=== PATIENT | male | born 1965 | race Caucasian/White ===

== ENCOUNTER 2017-12-06 12:28 | Inpatient (IN) | payer OTHER ==
--- NOTE | 2017-12-06 13:06 | PDOC ---
History of Present Illness - General Chief Complaint: Wound Infection Stated Complaint: INFECTION Time Seen by Provider: 12/06/17 12:42 History Source: Patient - History of Present Illness Initial Comments: 12/06/17 13:01 52 y.o. male with a PMH IDDM and R hip dysplasia presents with 5 day h/o of L 3rd phalange warmth, erythema and mild pain. Patient denies any associated fevers/chills. Patient notes a h/o cellullitis x2 in his L 2nd phalnage on prior occassion. Allergy: Amoxicillin, Bactrim Surgical: L eye surgery Social: denies cigarettes, denies alcohol, denies recreational drugs Past History - Past Medical History Allergies/Adverse Reactions: Allergies Allergy/AdvReac Type Severity Reaction Status Date / Time amoxicillin Allergy Rash Verified 12/06/17 12:38 sulfamethoxazole Allergy Rash Verified 12/06/17 12:38 [From Bactrim] trimethoprim [From Bactrim] Allergy Rash Verified 12/06/17 12:38 Home Medications: Ambulatory Orders Clindamycin [Cleocin -] 600 mg PO Q6H 12/06/17 Ergocalciferol (Vitamin D2) [Vitamin D2] 2,000 unit PO DAILY 12/06/17 Multivitamin [One Daily] 1 each PO DAILY 12/06/17 Mcintosh-3S/Dha/Epa/Fish Oil [Fish Oil 1,200 mg Softgel] 1 each PO DAILY 12/06/17 Omeprazole 40 mg PO DAILY 12/06/17 Pioglitazone HCl [Actos] 30 mg PO DAILY 12/06/17 Sitagliptin Phosphate [Januvia -] 100 mg PO DAILY@0700 12/06/17 metFORMIN HCL [Glucophage -] 500 mg PO BID 12/06/17 COPD: No Diabetes: Yes Other medical history: hip dysplagia - Suicide/Smoking/Psychosocial Hx Smoking History: Never smoked Review of Systems - Review of Systems Constitutional: No: Chills, Fever HEENTM: No: Recent change in vision Respiratory: No: Shortness of Breath Cardiac (ROS): No: Chest Pain ABD/GI: No: Constipated, Diarrhea, Nausea, Vomiting *Physical Exam - Vital Signs Last Vital Signs Temp Pulse Resp BP Pulse Ox 97.7 F 81 18 150/82 99 12/06/17 12:38 12/06/17 12:38 12/06/17 12:38 12/06/17 12:38 12/06/17 12:38 - Physical Exam General Appearance: Yes: Nourished, Obese HEENT: positive: EOMI, DANIEL Neck: positive: Trachea midline, Supple Respiratory/Chest: positive: Lungs Clear Cardiovascular: positive: S1, S2. negative: Edema, JVD, Murmur Vascular Pulses: Dorsalis-Pedis (R): 2+, Doralis-Pedis (L): 2+ Gastrointestinal/Abdominal: positive: Normal Bowel Sounds, Soft Extremity: positive: Other (L 3 phalange erythematous, edematous, moderate TTP) Integumentary: positive: Normal Color, Dry, Warm ED Treatment Course - LABORATORY CBC & Chemistry Diagram: 12/06/17 13:09 12/06/17 13:09 Medical Decision Making - Medical Decision Making 12/06/17 13:33 52 y.o. male presents w/ LLE redness, warmth swelling localized to 3rd phalange. Patient currently on Cephalexin PO - Day 4. Case d/w Dr. Doran ( Infectious Disease) Will treat for presumed cellulitis -- given patient's penicillin allergy, ID will treat @ bedside. 12/06/17 14:44 X-ray negative for osteomyelitis -- however given low sensitivity, will admit for further evaluation. [facility] hospitalist page for admission. 12/06/17 16:12 Patient admitted for observation. Will hold antibiotics pending bedside evaluation by Infectious Disease. Patient and patient's counseled on POC. Will continue to monitor while in ED. *DC/Admit/Observation/Transfer Diagnosis at time of Disposition: Cellulitis - Discharge Dispostion Condition at time of disposition: Fair Admit: Yes - Referrals - Patient Instructions - Post Discharge Activity
--- NOTE | 2017-12-06 13:23 | PDOC ---
Attending Attestation - Resident Resident Name: XiJoann - ED Attending Attestation I have performed the following: I have examined & evaluated the patient, The case was reviewed & discussed with the resident, I agree w/resident's findings & plan, Exceptions are as noted - HPI HPI: 12/06/17 13:21 52-year-old male with past medical history of diabetes, right hip dysplasia presents for admission for third left toe infection. The patient started developing erythema redness and pain proximal 5 days goes progressively worsened. Patient has been initiated on clindamycin and had seen his school treasurer who referred the patient to ED for admission to the hospital. Denies fevers or chills. - Physicial Exam PE: 12/06/17 13:22 GENERAL: Awake, alert, and fully oriented, in no acute distress. HEAD: No signs of trauma EYES: PERRLA, EOMI, sclera anicteric, conjunctiva clear ENT: Auricles normal inspection, hearing grossly normal, nares patent NECK: Normal ROM, supple ABDOMEN: Soft. EXTREMITIES: +R sided hip dysplasia. 3rd Left toe with erythema and no active drainage. mild TTP to palpation. 2+ DP pulse LLE. NEUROLOGICAL: Cranial nerves II through XII grossly intact. Normal speech SKIN: Warm, Dry, normal turgor, no rashes or lesions noted. - Medical Decision Making 12/06/17 13:22 Vital Signs Temp Pulse Resp BP Pulse Ox 97.7 F 81 18 150/82 99 12/06/17 12:38 12/06/17 12:38 12/06/17 12:38 12/06/17 12:38 12/06/17 12:38 The patient will certainly has infection of his third left toe. We'll also need to rule out osteomyelitis. We'll consult infectious disease physician Dr. Doran at the request of his school treasurer and admit the patient to the hospital. Heart Score/ECG Review #1 ECG reviewed & interpreted by me at: 13:20 12/06/17 13:24 NSR 83, low voltage QRS, no rosalinda/std, QTC 420 msec
[2017-12-06 13:27] LABS: BASO % 0.5 % (0-2.0); EOS % 2.5 % (0-4.5); HEMATOCRIT 43.9 % (35.4-49); HEMOGLOBIN 14.9 GM/dL (11.7-16.9); LYMPH % 12.8 % (8-40); MCH 30.3 pg (25.7-33.7); MCHC 33.9 g/dl (32.0-35.9); MEAN CELL VOLUME 89.2 fl (80-96); MEAN PLT VOLUME 8.5 fl (7.5-11.1); MONO % 7.7 % (3.8-10.2); NEUT % 76.5 % (42.8-82.8); PLATELET COUNT 161 K/MM3 (134-434); RBC 4.92 M/mm3 (4.00-5.60); RDW 12.4 % (11.9-15.9); WHITE BLOOD COUNT 5.6 K/mm3 (4.0-10.0)
[2017-12-06 13:52] LABS: ALBUMIN 3.8 g/dl (3.4-5.0); ALK PHOS 156 U/L (45-117); ANION GAP 11 (8-16); BILIRUBIN,TOTAL 0.7 mg/dL (0.2-1.0); BLOOD UREA NITROGEN 17 mg/dL (7-18); CALCIUM 9.6 mg/dL (8.5-10.1); CHLORIDE 99 mmol/L (98-107); CO2 26 mmol/L (21-32); CREATININE 0.9 mg/dL (0.7-1.3); POTASSIUM 4.6 mmol/L (3.5-5.1); SGOT/AST 16 U/L (15-37); SGPT/ALT 25 U/L (12-78); SODIUM 136 mmol/L (136-145); TOT PROT 7.7 g/dl (6.4-8.2)
[2017-12-06 13:57] LABS: GLUCOSE,RANDOM 319 mg/dL (74-106)
--- NOTE | 2017-12-06 16:08 | DS ---
Physical Exam: SUBJECTIVE: Patient seen and examined OBJECTIVE: Vital Signs Period Temp Pulse Resp BP Sys/Cruz Pulse Ox Last 24 Hr 97.7 F 81 18 150/82 99 PHYSICAL EXAM GENERAL: The patient is awake, alert, and fully oriented, in no acute distress. HEAD: Normal with no signs of trauma. EYES: PERRL, extraocular movements intact, sclera anicteric, conjunctiva clear. ENT: Ears normal, nares patent, oropharynx clear without exudates, moist mucous membranes. NECK: Trachea midline, full range of motion, supple. LUNGS: Breath sounds equal, clear to auscultation bilaterally, no wheezes, no crackles, no accessory muscle use. HEART: Regular rate and rhythm, S1, S2 without murmur, rub or gallop. ABDOMEN: Soft, nontender, nondistended, normoactive bowel sounds, no guarding, no rebound, no hepatosplenomegaly, no masses. EXTREMITIES: 2+ pulses, warm, well-perfused, no edema. NEUROLOGICAL: Cranial nerves II through XII grossly intact. Normal speech, gait not observed. PSYCH: Normal mood, normal affect. SKIN: Warm, dry, normal turgor, no rashes or lesions noted. LABS Laboratory Results - last 24 hr 12/06/17 12/06/17 12/06/17 13:09 13:09 13:13 WBC 5.6 RBC 4.92 Hgb 14.9 Hct 43.9 MCV 89.2 MCH 30.3 MCHC 33.9 RDW 12.4 Plt Count 161 MPV 8.5 Neutrophils % 76.5 Lymphocytes % 12.8 Monocytes % 7.7 Eosinophils % 2.5 Basophils % 0.5 ESR 23 H Sodium 136 Potassium 4.6 Chloride 99 Carbon Dioxide 26 Anion Gap 11 BUN 17 Creatinine 0.9 Creat Clearance w eGFR > 60 Random Glucose 319 H* Calcium 9.6 Total Bilirubin 0.7 AST 16 ALT 25 Alkaline Phosphatase 156 H C-Reactive Protein Total Protein 7.7 Albumin 3.8 12/06/17 13:13 WBC RBC Hgb Hct MCV MCH MCHC RDW Plt Count MPV Neutrophils % Lymphocytes % Monocytes % Eosinophils % Basophils % ESR Sodium Potassium Chloride Carbon Dioxide Anion Gap BUN Creatinine Creat Clearance w eGFR Random Glucose Calcium Total Bilirubin AST ALT Alkaline Phosphatase C-Reactive Protein < 0.3 Total Protein Albumin HOSPITAL COURSE: Date of Admission:12/06/17 Date of Discharge: 12/06/17 Discharge Summary Reason For Visit: INFECTION - Instructions Referrals: ON STAFF,NOT [Primary Care Provider] - - Home Medications Comprehensive Discharge Medication List: Ambulatory Orders Clindamycin [Cleocin -] 600 mg PO Q6H 12/06/17 Ergocalciferol (Vitamin D2) [Vitamin D2] 2,000 unit PO DAILY 12/06/17 Multivitamin [One Daily] 1 each PO DAILY 12/06/17 Lutz-3S/Dha/Epa/Fish Oil [Fish Oil 1,200 mg Softgel] 1 each PO DAILY 12/06/17 Omeprazole 40 mg PO DAILY 12/06/17 Pioglitazone HCl [Actos] 30 mg PO DAILY 12/06/17 Sitagliptin Phosphate [Januvia -] 100 mg PO DAILY@0700 12/06/17 metFORMIN HCL [Glucophage -] 500 mg PO BID 12/06/17
[2017-12-06] MEDS ORDERED: ACETAMINOPHEN 325 MG TABLET (FP) PO PRN (16:10)
--- NOTE | 2017-12-06 16:21 | HP ---
CHIEF COMPLAINT: "my viticulture teacher sent me to the ER for a toe infection" HISTORY OF PRESENT ILLNESS: This is a 52 yo M with PMH of poorly controlled NIDDM2, Osteomyelitis 5 years ago and R hip dysplasia, who presents with L 3rd toe infection, sent by podiatry for IV abx. Patient noticed his toe became edematous, red and was draining yellow fluid 5 days ago. he went to acute care, where he was given clindamycin, which he has been taking daily. Yesterday he saw his viticulture teacher, who examined him and determined that he needs admission. Reports that left ankle is a bit more swollen than usual. he denies pain, fever, chills or malaise. He states that he has has Dm for 15 years, has never been on insulin despite A1C averaging 13. He states his PCP manages his DM and never recommended insulin. he state he is not compliant with the diabetic diet. he has never had amputation before. Denies CP, sob, abd pain, n/v/d, h/a. ER course was notable for: (1) labs (2)cxr, foot xr Recent Travel: denies PAST MEDICAL HISTORY: PAST SURGICAL HISTORY:L eye surgery Social History: Smoking: denies Alcohol: denies Drugs: denies Family History: unknown Allergies amoxicillin Allergy (Verified 12/06/17 12:38) Rash sulfamethoxazole [From Bactrim] Allergy (Verified 12/06/17 12:38) Rash trimethoprim [From Bactrim] Allergy (Verified 12/06/17 12:38) Rash HOME MEDICATIONS: Home Medications Medication Instructions Recorded Clindamycin [Cleocin -] 600 mg PO Q6H 12/06/17 Ergocalciferol (Vitamin D2) 2,000 unit PO DAILY 12/06/17 [Vitamin D2] Multivitamin [One Daily] 1 each PO DAILY 12/06/17 [place]-3S/Dha/Epa/Fish Oil [Fish 1 each PO DAILY 12/06/17 Oil 1,200 mg Softgel] Omeprazole 40 mg PO DAILY 12/06/17 Pioglitazone HCl [Actos] 30 mg PO DAILY 12/06/17 Sitagliptin Phosphate [Januvia -] 100 mg PO DAILY@0700 12/06/17 metFORMIN HCL [Glucophage -] 500 mg PO BID 12/06/17 REVIEW OF SYSTEMS CONSTITUTIONAL: Absent: fever, chills, diaphoresis, generalized weakness, malaise, loss of appetite, weight change HEENT: Absent: rhinorrhea, nasal congestion, throat pain CARDIOVASCULAR: Absent: chest pain, syncope, palpitations, irregular heart rate, lightheadedness RESPIRATORY: Absent: cough, shortness of breath, dyspnea with exertion, orthopnea, wheezing, stridor, hemoptysis GASTROINTESTINAL: Absent: abdominal pain, abdominal distension, nausea, vomiting, diarrhea, constipation GENITOURINARY: Absent: dysuria MUSCULOSKELETAL: Absent: myalgia, arthralgia SKIN: Absent: rash, itching, pallor HEMATOLOGIC/IMMUNOLOGIC: Absent: frequent infections ENDOCRINE: Absent: unexplained weight gain, unexplained weight loss, heat intolerance, cold intolerance NEUROLOGIC: Absent: headache, focal weakness or paresthesias PSYCHIATRIC: Absent: anxiety, depression PHYSICAL EXAMINATION Vital Signs - 24 hr 12/06/17 12:38 Temperature 97.7 F Pulse Rate 81 Respiratory 18 Rate Blood Pressure 150/82 O2 Sat by Pulse 99 Oximetry (%) GENERAL: Awake, alert, and fully oriented, in no acute distress. HEAD: Normal with no signs of trauma. EYES: Pupils equal, round and reactive to light, extraocular movements intact, sclera anicteric, conjunctiva clear. No lid lag. EARS, NOSE, THROAT: Moist mucous membranes. NECK: supple LUNGS: Breath sounds equal, clear to auscultation bilaterally. No wheezes, and no crackles. No accessory muscle use. HEART: Regular rate and rhythm, normal S1 and S2 ABDOMEN: Soft, nontender, not distended, normoactive bowel sounds, no guarding, no rebound, no masses. MUSCULOSKELETAL: No CVA tenderness. UPPER EXTREMITIES: 2+ pulses, warm, well-perfused. No cyanosis. No clubbing. No peripheral edema. LOWER EXTREMITIES: 1+ pulses, warm, well-perfused. No calf tenderness. R leg thinner and shorter than L. Some echymotic lesions and calluses on 5th toe and 1st toe. No peripheral edema. R ankle trace edema, no calf tenderness 1+ pulse, 3rd toe edematous, mildly tender, erythematous, no drainage. b/l reduce sensation in toes. NEUROLOGICAL: Cranial nerves II-XII grossly intact. Normal speech. PSYCHIATRIC: Cooperative. Good eye contact. Appropriate mood and affect. SKIN: Warm, dry Laboratory Results - last 24 hr 03/12/06/17 12/06/17 13:09 13:09 13:13 WBC 5.6 RBC 4.92 Hgb 14.9 Hct 43.9 MCV 89.2 MCH 30.3 MCHC 33.9 RDW 12.4 Plt Count 161 MPV 8.5 Neutrophils % 76.5 Lymphocytes % 12.8 Monocytes % 7.7 Eosinophils % 2.5 Basophils % 0.5 ESR 23 H Sodium 136 Potassium 4.6 Chloride 99 Carbon Dioxide 26 Anion Gap 11 BUN 17 Creatinine 0.9 Creat Clearance w eGFR > 60 Random Glucose 319 H* Calcium 9.6 Total Bilirubin 0.7 AST 16 ALT 25 Alkaline Phosphatase 156 H C-Reactive Protein Total Protein 7.7 Albumin 3.8 12/06/17 13:13 WBC RBC Hgb Hct MCV MCH MCHC RDW Plt Count MPV Neutrophils % Lymphocytes % Monocytes % Eosinophils % Basophils % ESR Sodium Potassium Chloride Carbon Dioxide Anion Gap BUN Creatinine Creat Clearance w eGFR Random Glucose Calcium Total Bilirubin AST ALT Alkaline Phosphatase C-Reactive Protein < 0.3 Total Protein Albumin ASSESSMENT/PLAN: This is a 52 yo M with PMH of poorly controlled NIDDM2, Osteomyelitis 5 years ago and R hip dysplasia, who presents with L 3rd toe infection, sent by podiatry for IV abx. L 3rd toe infection -no SIRS -foot x ray not sensitive to r/o osteo -f/u MRI foot -silke renteria per PAUL Doran NIDDM2 -poorly controlled, reports A1C 13 -f/u A1c, lipid panel -BGM ACHS; start levemir 10 bid, ISS -hold po agents -outpatient endocrinology f/u FEN no ivf lytes stable diabetic diet scds Obs m/s; can upgrade to inpatient if osteo + on MRI Problem List - Problem (1) NIDDY (non-insulin dependent diabetes mellitus in young) Code(s): E13.9 - OTHER SPECIFIED DIABETES MELLITUS WITHOUT COMPLICATIONS (2) Diabetic foot ulcer Code(s): E11.621 - TYPE 2 DIABETES MELLITUS WITH FOOT ULCER; L97.509 - NON- PRESSURE CHRONIC ULCER OTH PRT UNSP FOOT W UNSP SEVERITY Visit type - Emergency Visit Emergency Visit: Yes ED Registration Date: 12/06/17 Care time: The patient presented to the Emergency Department on the above date and was hospitalized for further evaluation of their emergent condition. - New Patient This patient is new to me today: Yes Date on this admission: 12/06/17 - Critical Care Critical Care patient: No Hospitalist Screening - Colonoscopy Questionnaire Colonoscopy Questionnaire: Colonoscopy Questionnaire - Patient: 50 - 75 years old and never had a screening colonoscopy: Yes History of colon or rectal polyps, or CA: No History of IBD, Crohn's disease or UC: No History of abdominal radiation therapy as a child: No - Relative: 1 with colon or rectal CA, or polyps at age 60 or younger: No Colon or rectal CA diagnosed at age 45 or younger: No Multiple relatives with colon or rectal CA: No - Outcome: Screening Result: Positive Screen
[2017-12-06] MEDS ORDERED: metFORMIN HCL 500 MG TABLET (FP) ONE (16:29)
[2017-12-06] MEDS ORDERED: metFORMIN HCL 500 MG TABLET (FP) PO SCH (16:30)
--- NOTE | 2017-12-06 17:32 | EKG ---
Test Reason : Blood Pressure : / mmHG Vent. Rate : 083 BPM Atrial Rate : 083 BPM P-R Int : 186 ms QRS Dur : 090 ms QT Int : 358 ms P-R-T Axes : 066 -16 031 degrees QTc Int : 420 ms NORMAL SINUS RHYTHM LOW VOLTAGE QRS CANNOT RULE OUT ANTERIOR INFARCT , AGE UNDETERMINED ABNORMAL ECG NO PREVIOUS ECGS AVAILABLE Confirmed by MADDI CHANG MD ([id number]) on 12/06/2017 5:32:18 PM Referred By: Confirmed By:MADDI CHANG MD
--- NOTE | 2017-12-06 18:22 | PN ---
Teaching Attending Note Name of Resident: Mandy Tavarez ATTENDING PHYSICIAN STATEMENT I saw and evaluated the patient. I reviewed the resident's note and discussed the case with the resident. I agree with the resident's findings and plan as documented. SUBJECTIVE: 52M diabetic uncontrolled sent in by his stock buyer for admission due to draining toe ulcer OBJECTIVE: toe ulcer with serosanguinous drainage on 3rd left toe ASSESSMENT AND PLAN: 52M with infected toe ulcer likely from longstanding DM2 which he seems uninterested in controlling broad spectrum abx MRI to eval of OM DM2 start on long acting insulin and ISS
[2017-12-06 18:56] VITALS: BMI 41.6
[2017-12-06] MEDS ORDERED: VANCOMYCIN 1 GRAM (PRE-DOCKED) 1,000 MG/250 ML BAG IVPB ONE (23:23)
[2017-12-06] MEDS ORDERED: INSULIN DETEMIR 100 UNITS/ML MDV SQ ONE (23:24)
[2017-12-06] MEDS ORDERED: INSULIN (NOVOLOG) ASPART 100 UNITS/ML 10ML VIAL ONE (23:24)
[2017-12-06] MEDS: VANCOMYCIN 1,000 MG in DEXTROSE 5%-WATER - 250 ML IVPB SCH (23:32)
[2017-12-06] MEDS: INSULIN SLIDING SCALE (NOVOLOG) 1 VIAL SQ SCH (23:32)
[2017-12-06] MEDS: INSULIN DETEMIR 100 UNITS/ML MDV SQ SCH (23:32)
[2017-12-07] MEDS: INSULIN DETEMIR 100 UNITS/ML MDV SQ SCH ×2 (06:00→22:35)
[2017-12-07] MEDS: INSULIN SLIDING SCALE (NOVOLOG) 1 VIAL SQ SCH ×4 (06:01→22:35)
[2017-12-07] MEDS ORDERED: sitaGLIPtin PHOSPHATE 100 MG TABLET (FP) PO SCH (07:00)
[2017-12-07] MEDS ORDERED: PIOGLITAZONE HCL 30 MG TABLET (FP) PO SCH (07:00)
[2017-12-07 08:00] LABS: BASO % 0.7 % (0-2.0); EOS % 2.9 % (0-4.5); HEMATOCRIT 38.8 % (35.4-49); HEMOGLOBIN 13.4 GM/dL (11.7-16.9); LYMPH % 17.6 % (8-40); MCH 30.4 pg (25.7-33.7); MCHC 34.5 g/dl (32.0-35.9); MEAN CELL VOLUME 88.1 fl (80-96); MONO % 9.7 % (3.8-10.2); NEUT % 69.1 % (42.8-82.8); PLATELET COUNT 153 K/MM3 (134-434); RDW 12.5 % (11.9-15.9); WHITE BLOOD COUNT 4.6 K/mm3 (4.0-10.0)
[2017-12-07 08:21] LABS: CHOLESTEROL 172 mg/dL (50-200); LDL CHOLESTEROL (ONLY SJRH) 115 mg/dL (5-100); TRIGLYCERIDES 139 mg/dL (35-160)
[2017-12-07 08:23] LABS: HDL CHOLESTEROL 35 mg/dL (40-60)
[2017-12-07 08:37] LABS: ALBUMIN 3.3 g/dl (3.4-5.0); ANION GAP 11 (8-16); BLOOD UREA NITROGEN 21 mg/dL (7-18); CALCIUM 8.9 mg/dL (8.5-10.1); CHLORIDE 99 mmol/L (98-107); CO2 27 mmol/L (21-32); GLUCOSE,RANDOM 187 mg/dL (74-106); MAGNESIUM 1.7 mg/dL (1.8-2.4); POTASSIUM 3.9 mmol/L (3.5-5.1); SODIUM 137 mmol/L (136-145)
[2017-12-07 08:41] LABS: ALK PHOS 105 U/L (45-117); BILIRUBIN,TOTAL 0.9 mg/dL (0.2-1.0); CREATININE 0.8 mg/dL (0.7-1.3); PHOSPHOROUS 3.5 mg/dL (2.5-4.9); SGOT/AST 13 U/L (15-37); SGPT/ALT 20 U/L (12-78); TOT PROT 6.7 g/dl (6.4-8.2)
[2017-12-07] MEDS ORDERED: PT OWN MED DRAWER 7, Y5N ONE ×2 (10:31→12:03)
[2017-12-07] MEDS: VANCOMYCIN 1,000 MG in DEXTROSE 5%-WATER - 250 ML IVPB SCH (10:42)
[2017-12-07] MEDS: PANTOPRAZOLE 20 MG TABLET (FP) PO SCH (10:42)
[2017-12-07] MEDS: MULTIVITAMINS (DAILY MVI) TABLET (FP) PO SCH (10:42)
--- NOTE | 2017-12-07 10:43 | CONSULT ---
Consult - text type - Consultation Consultation Note: Patient seen in bed with an infected 3rd toe left. Presented to my office on Thursday. Did not come to hospital till yesterday against medical advice. Was being tx outpatient with clindamycin for 3 days when presented to me. Tmax 98.0 , vss +cellulitis 3rd toe left, -drainage, -mal odor, -tender, wbc=4.6, demarcating distal 1/2 left, cellulitis diabetes mellitus r/o pvd Awaiting vascular and ID consult. Will follow. MRI today.
[2017-12-07] MEDS ORDERED: INSULIN (NOVOLOG) ASPART 100 UNITS/ML 10ML VIAL ONE ×2 (11:48→12:03)
--- NOTE | 2017-12-07 12:15 | PN ---
Teaching Attending Note Name of Resident: Nam Stewart ATTENDING PHYSICIAN STATEMENT I saw and evaluated the patient. I reviewed the resident's note and discussed the case with the resident. I agree with the resident's findings and plan as documented. SUBJECTIVE: Patient has no complaints. OBJECTIVE: Vital Signs Period Temp Pulse Resp BP Sys/Cruz Pulse Ox Last 24 Hr 97.7 F-98.2 F 81-86 18-19 115-150/64-82 98-100 HEART: S1S2, RRR LUNGS: Clear ABDOMEN: Obese, soft, non-tender, non-distended, normal BS EXTREMITIES: Left 3rd toe erythematous and swollen with no drainage Laboratory Results - last 24 hr 12/06/17 12/06/17 12/06/17 13:09 13:09 13:13 WBC 5.6 RBC 4.92 Hgb 14.9 Hct 43.9 MCV 89.2 MCH 30.3 MCHC 33.9 RDW 12.4 Plt Count 161 MPV 8.5 Neutrophils % 76.5 Lymphocytes % 12.8 Monocytes % 7.7 Eosinophils % 2.5 Basophils % 0.5 ESR 23 H Sodium 136 Potassium 4.6 Chloride 99 Carbon Dioxide 26 Anion Gap 11 BUN 17 Creatinine 0.9 Creat Clearance w eGFR > 60 POC Glucometer Random Glucose 319 H* Hemoglobin A1c % Calcium 9.6 Phosphorus Magnesium Total Bilirubin 0.7 AST 16 ALT 25 Alkaline Phosphatase 156 H C-Reactive Protein Total Protein 7.7 Albumin 3.8 Triglycerides Cholesterol Total LDL Cholesterol HDL Cholesterol 12/06/17 12/06/17 12/07/17 13:13 23:20 05:16 WBC RBC Hgb Hct MCV MCH MCHC RDW Plt Count MPV Neutrophils % Lymphocytes % Monocytes % Eosinophils % Basophils % ESR Sodium Potassium Chloride Carbon Dioxide Anion Gap BUN Creatinine Creat Clearance w eGFR POC Glucometer [phone] Random Glucose Hemoglobin A1c % Calcium Phosphorus Magnesium Total Bilirubin AST ALT Alkaline Phosphatase C-Reactive Protein < 0.3 Total Protein Albumin Triglycerides Cholesterol Total LDL Cholesterol HDL Cholesterol 12/07/17 12/07/17 12/07/17 06:13 06:13 06:13 WBC 4.6 RBC 4.40 Hgb 13.4 D Hct 38.8 MCV 88.1 MCH 30.4 MCHC 34.5 RDW 12.5 Plt Count 153 MPV 9.0 Neutrophils % 69.1 Lymphocytes % 17.6 D Monocytes % 9.7 Eosinophils % 2.9 Basophils % 0.7 ESR Sodium 137 Potassium 3.9 Chloride 99 Carbon Dioxide 27 Anion Gap 11 BUN 21 H D Creatinine 0.8 Creat Clearance w eGFR > 60 POC Glucometer Random Glucose 187 H D Hemoglobin A1c % 11.5 H Calcium 8.9 Phosphorus 3.5 Magnesium 1.7 L Total Bilirubin 0.9 D AST 13 L ALT 20 Alkaline Phosphatase 105 D C-Reactive Protein Total Protein 6.7 Albumin 3.3 L Triglycerides Cholesterol Total LDL Cholesterol HDL Cholesterol 12/07/17 12/07/17 12/07/17 06:13 06:13 11:57 WBC RBC Hgb Hct MCV MCH MCHC RDW Plt Count MPV Neutrophils % Lymphocytes % Monocytes % Eosinophils % Basophils % ESR Sodium Potassium Chloride Carbon Dioxide Anion Gap BUN Creatinine Creat Clearance w eGFR POC Glucometer 283 Random Glucose Hemoglobin A1c % Calcium Phosphorus Magnesium Total Bilirubin AST ALT Alkaline Phosphatase C-Reactive Protein Cancelled Total Protein Albumin Triglycerides 139 Cholesterol 172 Total LDL Cholesterol 115 H HDL Cholesterol 35 L Current Medications Generic Name Dose Route Start Last Admin Trade Name Freq PRN Reason Stop Dose Admin Acetaminophen 650 mg 12/06/17 16:10 Tylenol - PO Q4H PRN PAIN LEVEL 1-5 Vancomycin HCl 1,000 mg/ 250 mls @ 166.667 mls/hr 12/06/17 22:00 12/07/17 10: 42 Dextrose IVPB 166.667 mls/hr BID CHRIS Administration Protocol Insulin Aspart 1 vial 12/06/17 22:00 12/07/17 12:00 Novolog Vial Sliding Scale - SQ 6 unit ACHS CHRIS Administration Protocol Insulin Detemir 10 units 12/06/17 22:00 12/07/17 06:00 Levemir Vial SQ 10 units BID@0700,2200 CHRIS Administration Multivitamins/Minerals/Vitamin C 1 tab 12/07/17 10:00 12/07/17 10:42 Tab-A-Vit - PO 1 tab DAILY CHRIS Administration Pantoprazole Sodium 20 mg 12/07/17 10:00 12/07/17 10:42 Protonix - PO 20 mg DAILY CHRIS Administration ASSESSMENT AND PLAN: This is a 52 year old man with a history of type 2 DM, osteomyelitis, right hip dysplasia who presented to the ED with a red, swollen left 3rd toe. 1. Cellulitis, left 3rd toe - Failed treatment with Clindamycin PO as outpatient - On Zosyn, Vancomycin - ID consult - Podiatry consult appreciated - MRI pending 2. Type 2 DM, uncontrolled - HgbA1c 11.5 - Metformin, Januvia, Actos held - Continue Levemir, Novolog sliding scale
--- NOTE | 2017-12-07 12:30 | CON.ID ---
Consult Consult Specialty:: infectious diseases Reason for Consultation:: left 3rd toe infection - History of Present Illness Chief Complaint: pain tenderness of the left 3rd toe History of Present Illness: 52 yo M with PMH of poorly controlled NIDDM2, Osteomyelitis 5 years ago and R hip dysplasia, admitted because of pain and swelling and erythema of the left 3rd toe and was send here to get iv abx. Patient noticed his toe became edematous, red and was draining yellow fluid 5 days ago. he went to acute care, where he was given clindamycin, which he has been taking daily. Yesterday he saw his account resolution expert, who examined him and determined that he needs admission. . he denies pain, fever, chills or malaise. 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 patient otherwise feels good and has no other issues - History Source History Provided By: Patient Limitations to Obtaining History: No Limitations - Smoking History Smoking history: Never smoked Home Medications - Allergies Allergies/Adverse Reactions: Allergies Allergy/AdvReac Type Severity Reaction Status Date / Time amoxicillin Allergy Rash Verified 12/06/17 12:38 sulfamethoxazole Allergy Rash Verified 12/06/17 12:38 [From Bactrim] trimethoprim [From Bactrim] Allergy Rash Verified 12/06/17 12:38 - Home Medications Home Medications: Ambulatory Orders Clindamycin [Cleocin -] 600 mg PO Q6H 12/06/17 Ergocalciferol (Vitamin D2) [Vitamin D2] 2,000 unit PO DAILY 12/06/17 Multivitamin [One Daily] 1 each PO DAILY 12/06/17 Crockett-3S/Dha/Epa/Fish Oil [Fish Oil 1,200 mg Softgel] 1 each PO DAILY 12/06/17 Omeprazole 40 mg PO DAILY 12/06/17 Pioglitazone HCl [Actos] 30 mg PO DAILY 12/06/17 Sitagliptin Phosphate [Januvia -] 100 mg PO DAILY@0700 12/06/17 metFORMIN HCL [Glucophage -] 500 mg PO BID 12/06/17 Review of Systems - Review of Systems Constitutional: reports: No Symptoms Eyes: reports: No Symptoms HENT: reports: No Symptoms Neck: reports: No Symptoms Cardiovascular: reports: No Symptoms Respiratory: reports: No Symptoms Gastrointestinal: reports: No Symptoms Genitourinary: reports: No Symptoms Musculoskeletal: reports: Joint Swelling, Muscle Pain Integumentary: reports: Wound, Other (draiange) Neurological: reports: No Symptoms Endocrine: reports: No Symptoms Hematology/Lymphatic: reports: No Symptoms Psychiatric: reports: No Symptoms Physical Exam Vital Signs: Vital Signs Temperature 98.0 F 12/07/17 06:00 Pulse Rate 85 12/07/17 06:00 Respiratory Rate 18 12/07/17 06:00 Blood Pressure 115/69 12/07/17 06:00 O2 Sat by Pulse Oximetry (%) 100 12/07/17 03:15 Constitutional: Yes: Well Nourished, No Distress, Calm, Obese Eyes: Yes: Conjunctiva Clear, EOM Intact HENT: Yes: Atraumatic Neck: Yes: Supple, Trachea Midline Cardiovascular: Yes: Regular Rate and Rhythm Respiratory: Yes: Regular, CTA Bilaterally Gastrointestinal: Yes: Normal Bowel Sounds, Soft Musculoskeletal: Yes: WNL Extremities: Yes: Other Integumentary: Yes: Erythema (left 3rd toe), Other (callous on the plantar aspect of the left foot) Wound/Incision: Yes: Draining, Reddened Neurological: Yes: Alert, Oriented Psychiatric: Yes: Alert, Oriented Labs: CBC, BMP 12/07/17 06:13 12/07/17 06:13 Imaging - Results Chest X-ray: Report Reviewed, Image Reviewed X-ray: Report Reviewed, Image Reviewed Assessment/Plan after looking at the patient condition and the leg and history i have no doubt that the patient probably has osteo specially looking at the callous also he does have pretty bad onchomycosis obesity onchomycosis r/o osteo left 3rd toe cellulitis patient has been started on vanco patient is allergic to pencillins plan will stop vanco will switch patient to ertapena wound cx if any drainage noted please get mri of the leg rest as per primary team nystatin cream to the toes of both feet
[2017-12-07] MEDS ORDERED: MAGNESIUM OXIDE 400 MG TABLET (FP) PO ONE (15:46)
--- NOTE | 2017-12-07 15:46 | PN ---
Physical Exam: SUBJECTIVE: Patient seen and examined No acute events overnight. patient continues to drain from the foot. States he took clindamycin x 4days prior to arriving to the hospital. OBJECTIVE: Vital Signs Period Temp Pulse Resp BP Sys/Cruz Pulse Ox Last 24 Hr 97.7 F-98.2 F 80-86 18-20 115-138/64-78 98-100 GENERAL: Awake, alert, and fully oriented, in no acute distress. HEAD: Normal with no signs of trauma. EYES: Pupils equal, round and reactive to light, extraocular movements intact, sclera anicteric, conjunctiva clear. No lid lag. EARS, NOSE, THROAT: Moist mucous membranes. NECK: supple LUNGS: Breath sounds equal, clear to auscultation bilaterally. No wheezes, and no crackles. No accessory muscle use. HEART: Regular rate and rhythm, normal S1 and S2 ABDOMEN: Soft, nontender, not distended, normoactive bowel sounds, no guarding, no rebound, no masses. MUSCULOSKELETAL: No CVA tenderness. UPPER EXTREMITIES: 2+ pulses, warm, well-perfused. No cyanosis. No clubbing. No peripheral edema. LOWER EXTREMITIES: 1+ pulses, warm, well-perfused. No calf tenderness. R leg thinner and shorter than L. Some echymotic lesions and calluses on 5th toe and 1st toe. No peripheral edema. R ankle trace edema, no calf tenderness 1+ pulse, 3rd toe edematous, mildly tender, erythematous, no drainage. b/l reduce sensation in toes. NEUROLOGICAL: Cranial nerves II-XII grossly intact. Normal speech. PSYCHIATRIC: Cooperative. Good eye contact. Appropriate mood and affect. SKIN: Warm, dry Laboratory Results - last 24 hr 12/06/17 12/07/17 12/07/17 23:20 05:16 06:13 WBC 4.6 RBC 4.40 Hgb 13.4 D Hct 38.8 MCV 88.1 MCH 30.4 MCHC 34.5 RDW 12.5 Plt Count 153 MPV 9.0 Neutrophils % 69.1 Lymphocytes % 17.6 D Monocytes % 9.7 Eosinophils % 2.9 Basophils % 0.7 Sodium Potassium Chloride Carbon Dioxide Anion Gap BUN Creatinine Creat Clearance w eGFR POC Glucometer [phone] Random Glucose Hemoglobin A1c % Calcium Phosphorus Magnesium Total Bilirubin AST ALT Alkaline Phosphatase C-Reactive Protein Total Protein Albumin Triglycerides Cholesterol Total LDL Cholesterol HDL Cholesterol 12/07/17 12/07/17 12/07/17 06:13 06:13 06:13 WBC RBC Hgb Hct MCV MCH MCHC RDW Plt Count MPV Neutrophils % Lymphocytes % Monocytes % Eosinophils % Basophils % Sodium 137 Potassium 3.9 Chloride 99 Carbon Dioxide 27 Anion Gap 11 BUN 21 H D Creatinine 0.8 Creat Clearance w eGFR > 60 POC Glucometer Random Glucose 187 H D Hemoglobin A1c % 11.5 H Calcium 8.9 Phosphorus 3.5 Magnesium 1.7 L Total Bilirubin 0.9 D AST 13 L ALT 20 Alkaline Phosphatase 105 D C-Reactive Protein < 0.2 Total Protein 6.7 Albumin 3.3 L Triglycerides 139 Cholesterol 172 Total LDL Cholesterol 115 H HDL Cholesterol 35 L 12/07/17 12/07/17 06:13 11:57 WBC RBC Hgb Hct MCV MCH MCHC RDW Plt Count MPV Neutrophils % Lymphocytes % Monocytes % Eosinophils % Basophils % Sodium Potassium Chloride Carbon Dioxide Anion Gap BUN Creatinine Creat Clearance w eGFR POC Glucometer 283 Random Glucose Hemoglobin A1c % Calcium Phosphorus Magnesium Total Bilirubin AST ALT Alkaline Phosphatase C-Reactive Protein Cancelled Total Protein Albumin Triglycerides Cholesterol Total LDL Cholesterol HDL Cholesterol Active Medications Generic Name Dose Route Start Last Admin Trade Name Freq PRN Reason Stop Dose Admin Acetaminophen 650 mg 12/06/17 16:10 Tylenol - PO Q4H PRN PAIN LEVEL 1-5 Ertapenem 1 gm/ Sodium 100 mls @ 200 mls/hr 12/07/17 12:45 Chloride IVPB DAILY [facility] Protocol Insulin Aspart 1 vial 12/06/17 22:00 12/07/17 12:00 Novolog Vial Sliding Scale - SQ 6 unit ACHS [facility] Administration Protocol Insulin Detemir 10 units 12/06/17 22:00 12/07/17 06:00 Levemir Vial SQ 10 units BID@0700,2200 [facility] Administration Multivitamins/Minerals/Vitamin C 1 tab 12/07/17 10:00 12/07/17 10:42 Tab-A-Vit - PO 1 tab DAILY [facility] Administration Nystatin 1 applic 12/08/17 10:00 Mycostatin Ointment - TP DAILY [facility] Pantoprazole Sodium 20 mg 12/07/17 10:00 12/07/17 10:42 Protonix - PO 20 mg DAILY [facility] Administration ASSESSMENT/PLAN: This is a 52 yo M with PMH of poorly controlled NIDDM2, Osteomyelitis 5 years ago and R hip dysplasia, who presents with L 3rd toe infection, sent by podiatry for IV abx. L 3rd toe infection -no SIRS -foot x ray not sensitive to r/o osteo -MRI pending -Ertapenem per Dr. Doran NIDDM2 -poorly controlled, reports A1C 13 -A1c 11.5 -BGM ACHS; continue levemir 10 bid, ISS -hold po agents -outpatient endocrinology f/u FEN no ivf lytes stable diabetic diet scds protonix 20 mg po daily Patient will be inpatient Visit type - Emergency Visit Emergency Visit: Yes ED Registration Date: 12/07/17 Care time: The patient presented to the Emergency Department on the above date and was hospitalized for further evaluation of their emergent condition. - New Patient This patient is new to me today: Yes Date on this admission: 12/07/17 - Critical Care Critical Care patient: No
[2017-12-07] MEDS: ERTAPENEM SODIUM 1 GM in SODIUM CHLORIDE 100 ML IVPB SCH (16:13)
[2017-12-08] MEDS: INSULIN DETEMIR 100 UNITS/ML MDV SQ SCH ×2 (06:17→21:57)
[2017-12-08] MEDS: INSULIN SLIDING SCALE (NOVOLOG) 1 VIAL SQ SCH ×4 (06:18→21:57)
[2017-12-08 07:45] LABS: CHLORIDE 99 mmol/L (98-107); SODIUM 137 mmol/L (136-145)
[2017-12-08 07:55] LABS: ANION GAP 10 (8-16); BLOOD UREA NITROGEN 16 mg/dL (7-18); CALCIUM 8.9 mg/dL (8.5-10.1); CO2 28 mmol/L (21-32); CREATININE 0.7 mg/dL (0.7-1.3); GLUCOSE,RANDOM 224 mg/dL (74-106)
[2017-12-08 07:58] LABS: BASO % 0.5 % (0-2.0); EOS % 2.9 % (0-4.5); HEMOGLOBIN 14.1 GM/dL (11.7-16.9); MCH 30.4 pg (25.7-33.7); MCHC 34.3 g/dl (32.0-35.9); MEAN CELL VOLUME 88.5 fl (80-96); MEAN PLT VOLUME 8.5 fl (7.5-11.1); NEUT % 71.6 % (42.8-82.8); PLATELET COUNT 154 K/MM3 (134-434); RBC 4.64 M/mm3 (4.00-5.60); RDW 12.5 % (11.9-15.9); WHITE BLOOD COUNT 5.3 K/mm3 (4.0-10.0)
[2017-12-08] MEDS ORDERED: PT OWN MED DRAWER 7, Y5N ONE (09:24)
[2017-12-08] MEDS: PANTOPRAZOLE 20 MG TABLET (FP) PO SCH (09:26)
[2017-12-08] MEDS: MULTIVITAMINS (DAILY MVI) TABLET (FP) PO SCH (09:26)
[2017-12-08] MEDS: ERTAPENEM SODIUM 1 GM in SODIUM CHLORIDE 100 ML IVPB SCH (09:31)
[2017-12-08] MEDS: NYSTATIN 100000 UNIT/GM TOPICAL OINTMENT 15 GM TUBE TP SCH (11:34)
--- NOTE | 2017-12-08 12:17 | PN ---
Progress Note (short form) - Note Progress Note: Patient seen in bed with an infected 3rd toe left. Tmax 98.0, vss +cellulitis 3rd toe left, +om, -drainage, -mal odor, -tender, wbc=5.3, demarcating distal 1/3 left 3rd toe, cellulitis diabetes mellitus r/o pvd om Awaiting vascular and read ID consult. Will follow. Betadine dressing change daily. post op shoe left.
--- NOTE | 2017-12-08 13:31 | PN ---
Progress Note, Physician History of Present Illness: patient stable no complaints - Current Medication List Current Medications: Active Medications Acetaminophen (Tylenol -) 650 mg PO Q4H PRN PRN Reason: PAIN LEVEL 1-5 Ertapenem 1 gm/ Sodium (Chloride) 100 mls @ 200 mls/hr IVPB DAILY [facility] PRN Reason: Protocol Last Admin: 12/08/17 09:31 Dose: 200 mls/hr Insulin Aspart (Novolog Vial Sliding Scale -) 1 vial SQ ACHS [facility] PRN Reason: Protocol Last Admin: 12/08/17 11:31 Dose: 2 unit Insulin Detemir (Levemir Vial) 10 units SQ BID@0700,2200 [facility] Last Admin: 12/08/17 06:17 Dose: 10 units Multivitamins/Minerals/Vitamin C (Tab-A-Vit -) 1 tab PO DAILY [facility] Last Admin: 12/08/17 09:26 Dose: 1 tab Nystatin (Mycostatin Ointment -) 1 applic TP DAILY [facility] Last Admin: 12/08/17 11:34 Dose: 1 applic Pantoprazole Sodium (Protonix -) 20 mg PO DAILY [facility] Last Admin: 12/08/17 09:26 Dose: 20 mg - Objective Vital Signs: Vital Signs Temperature 97.9 F 12/08/17 10:59 Pulse Rate 86 12/08/17 10:59 Respiratory Rate 15 12/08/17 10:59 Blood Pressure 136/76 12/08/17 10:59 O2 Sat by Pulse Oximetry (%) 100 12/08/17 00:00 Constitutional: Yes: No Distress, Calm, Obese Cardiovascular: Yes: Regular Rate and Rhythm Respiratory: Yes: Regular, CTA Bilaterally Gastrointestinal: Yes: Normal Bowel Sounds, Soft Musculoskeletal: Yes: WNL Extremities: Yes: Other Wound/Incision: Yes: Dressing Dry and Intact, Other Neurological: Yes: Alert, Oriented Psychiatric: Yes: Alert, Oriented Labs: CBC, BMP 12/08/17 05:30 12/08/17 05:30 Assessment/Plan obesity onchomycosis r/o osteo left 3rd toe cellulitis patient has been started on vanco patient is allergic to pencillins plan conitnue ertapenam mri result awaited will plan further treatment accordingly rest as per primary team
--- NOTE | 2017-12-08 15:33 | PN ---
Physical Exam: SUBJECTIVE: Patient seen and examined No acute events overnight. Pain is well controlled. Patient is comfortable in bed and asymptomatic. OBJECTIVE: Vital Signs Period Temp Pulse Resp BP Sys/Cruz Pulse Ox Last 24 Hr 97.9 F-98.5 F 77-86 15-20 122-139/72-78 100 GENERAL: Awake, alert, and fully oriented, in no acute distress. HEAD: Normal with no signs of trauma. EYES: Pupils equal, round and reactive to light, extraocular movements intact, sclera anicteric, conjunctiva clear. No lid lag. EARS, NOSE, THROAT: Moist mucous membranes. NECK: supple LUNGS: Breath sounds equal, clear to auscultation bilaterally. No wheezes, and no crackles. No accessory muscle use. HEART: Regular rate and rhythm, normal S1 and S2 ABDOMEN: Soft, nontender, not distended, normoactive bowel sounds, no guarding, no rebound, no masses. MUSCULOSKELETAL: No CVA tenderness. UPPER EXTREMITIES: 2+ pulses, warm, well-perfused. No cyanosis. No clubbing. No peripheral edema. LOWER EXTREMITIES: 1+ pulses, warm, well-perfused. No calf tenderness. R leg thinner and shorter than L. Some echymotic lesions and calluses on 5th toe and 1st toe. No peripheral edema. R ankle trace edema, no calf tenderness 1+ pulse, 3rd toe edematous, mildly tender, erythematous, no drainage. b/l reduce sensation in toes. NEUROLOGICAL: Cranial nerves II-XII grossly intact. Normal speech. PSYCHIATRIC: Cooperative. Good eye contact. Appropriate mood and affect. SKIN: Warm, dry Laboratory Results - last 24 hr 12/07/17 12/07/17 12/08/17 17:25 22:34 05:30 WBC RBC Hgb Hct MCV MCH MCHC RDW Plt Count MPV Neutrophils % Lymphocytes % Monocytes % Eosinophils % Basophils % ESR 23 H Sodium Potassium Chloride Carbon Dioxide Anion Gap BUN Creatinine POC Glucometer 174 198 Random Glucose Calcium 12/08/17 12/08/17 12/08/17 05:30 05:30 06:17 WBC 5.3 RBC 4.64 Hgb 14.1 Hct 41.0 MCV 88.5 MCH 30.4 MCHC 34.3 RDW 12.5 Plt Count 154 MPV 8.5 Neutrophils % 71.6 Lymphocytes % 16.0 Monocytes % 9.0 Eosinophils % 2.9 Basophils % 0.5 ESR Sodium 137 Potassium 4.0 Chloride 99 Carbon Dioxide 28 Anion Gap 10 BUN 16 D Creatinine 0.7 POC Glucometer 223 Random Glucose 224 H Calcium 8.9 12/08/17 11:29 WBC RBC Hgb Hct MCV MCH MCHC RDW Plt Count MPV Neutrophils % Lymphocytes % Monocytes % Eosinophils % Basophils % ESR Sodium Potassium Chloride Carbon Dioxide Anion Gap BUN Creatinine POC Glucometer 200 Random Glucose Calcium Active Medications Generic Name Dose Route Start Last Admin Trade Name Frejuan PRN Reason Stop Dose Admin Acetaminophen 650 mg 12/06/17 16:10 Tylenol - PO Q4H PRN PAIN LEVEL 1-5 Ertapenem 1 gm/ Sodium 100 mls @ 200 mls/hr 12/07/17 12:45 12/08/17 09:31 Chloride IVPB 200 mls/hr DAILY [facility]IS Administration Protocol Insulin Aspart 1 vial 12/06/17 22:00 12/08/17 11:31 Novolog Vial Sliding Scale - SQ 2 unit ACHS CHRIS Administration Protocol Insulin Detemir 10 units 12/06/17 22:00 12/08/17 06:17 Levemir Vial SQ 10 units BID@0700,2200 [facility] Administration Multivitamins/Minerals/Vitamin C 1 tab 12/07/17 10:00 12/08/17 09:26 Tab-A-Vit - PO 1 tab DAILY [facility] Administration Nystatin 1 applic 12/08/17 10:00 12/08/17 11:34 Mycostatin Ointment - TP 1 applic DAILY [facility]IS Administration Pantoprazole Sodium 20 mg 12/07/17 10:00 12/08/17 09:26 Protonix - PO 20 mg DAILY [facility]IS Administration ASSESSMENT/PLAN: This is a 52 yo M with PMH of poorly controlled NIDDM2, osteomyelitis 5 years ago and R hip dysplasia, who presents with L 3rd toe infection, sent by podiatry for IV abx. L 3rd toe infection, osteomyelitis -no SIRS -foot x ray not sensitive to r/o osteo -MRI reveals bone marrow edema of distal phalynx of 3rd toe suggestive of osteo -Ertapenem [address] Doran, will f/u regarding duration of therapy. Patient will need PICC line placed. NIDDM2 -poorly controlled, reports A1C 13 -A1c 11.5 -BGM ACHS; continue levemir 10 bid, ISS -hold po agents -outpatient endocrinology f/u FEN no ivf lytes stable diabetic diet scds protonix 20 mg po daily Visit type - Emergency Visit Emergency Visit: Yes ED Registration Date: 12/07/17 Care time: The patient presented to the Emergency Department on the above date and was hospitalized for further evaluation of their emergent condition. - New Patient This patient is new to me today: No - Critical Care Critical Care patient: No
--- NOTE | 2017-12-08 18:35 | PN ---
Teaching Attending Note Name of Resident: Nam Stewart ATTENDING PHYSICIAN STATEMENT I saw and evaluated the patient. I reviewed the resident's note and discussed the case with the resident. I agree with the resident's findings and plan as documented. SUBJECTIVE: No complaints. OBJECTIVE: Vital Signs Period Temp Pulse Resp BP Sys/Cruz Pulse Ox Last 24 Hr 97.6 F-98.5 F 77-86 15-20 122-140/70-78 100 HEART: S1S2, RRR LUNGS: Clear ABDOMEN: Obese, soft, non-tender, non-distended, normal BS EXTREMITIES: Left 3rd toe erythematous and swollen with no drainage Laboratory Results - last 24 hr 12/07/17 12/08/17 12/08/17 22:34 05:30 05:30 WBC 5.3 RBC 4.64 Hgb 14.1 Hct 41.0 MCV 88.5 MCH 30.4 MCHC 34.3 RDW 12.5 Plt Count 154 MPV 8.5 Neutrophils % 71.6 Lymphocytes % 16.0 Monocytes % 9.0 Eosinophils % 2.9 Basophils % 0.5 ESR 23 H Sodium Potassium Chloride Carbon Dioxide Anion Gap BUN Creatinine POC Glucometer 198 Random Glucose Calcium 12/08/17 12/08/17 12/08/17 05:30 06:17 11:29 WBC RBC Hgb Hct MCV MCH MCHC RDW Plt Count MPV Neutrophils % Lymphocytes % Monocytes % Eosinophils % Basophils % ESR Sodium 137 Potassium 4.0 Chloride 99 Carbon Dioxide 28 Anion Gap 10 BUN 16 D Creatinine 0.7 POC Glucometer 223 200 Random Glucose 224 H Calcium 8.9 12/08/17 16:58 WBC RBC Hgb Hct MCV MCH MCHC RDW Plt Count MPV Neutrophils % Lymphocytes % Monocytes % Eosinophils % Basophils % ESR Sodium Potassium Chloride Carbon Dioxide Anion Gap BUN Creatinine POC Glucometer 222 Random Glucose Calcium Current Medications Generic Name Dose Route Start Last Admin Trade Name Freq PRN Reason Stop Dose Admin Acetaminophen 650 mg 12/06/17 16:10 Tylenol - PO Q4H PRN PAIN LEVEL 1-5 Ertapenem 1 gm/ Sodium 100 mls @ 200 mls/hr 12/07/17 12:45 12/08/17 09:31 Chloride IVPB 200 mls/hr DAILY [facility]IS Administration Protocol Insulin Aspart 1 vial 12/06/17 22:00 12/08/17 17:01 Novolog Vial Sliding Scale - SQ 4 unit ACHS CH[facility]IS Administration Protocol Insulin Detemir 10 units 12/06/17 22:00 12/08/17 06:17 Levemir Vial SQ 10 units BID@0700,2200 [facility] Administration Multivitamins/Minerals/Vitamin C 1 tab 12/07/17 10:00 12/08/17 09:26 Tab-A-Vit - PO 1 tab DAILY [facility] Administration Nystatin 1 applic 12/08/17 10:00 12/08/17 11:34 Mycostatin Ointment - TP 1 applic DAILY [facility] Administration Pantoprazole Sodium 20 mg 12/07/17 10:00 12/08/17 09:26 Protonix - PO 20 mg DAILY [facility]IS Administration ASSESSMENT AND PLAN: This is a 52 year old man with a history of type 2 DM, osteomyelitis, right hip dysplasia who presented to the ED with a red, swollen left 3rd toe. 1. Left 3rd toe cellulitis and osteomyelitis - MRI consistent with osteomyelitis of left 3rd distal phalanx - Failed treatment with Clindamycin PO as outpatient - ID consult appreciated - abx changed to Invanz 2. Type 2 DM, uncontrolled - HgbA1c 11.5 - Metformin, Januvia, Actos held - Continue Levemir, Novolog sliding scale
[2017-12-09] MEDS: INSULIN DETEMIR 100 UNITS/ML MDV SQ SCH ×2 (06:48→22:13)
[2017-12-09] MEDS: INSULIN SLIDING SCALE (NOVOLOG) 1 VIAL SQ SCH ×4 (06:48→22:12)
[2017-12-09] MEDS: MULTIVITAMINS (DAILY MVI) TABLET (FP) PO SCH (11:39)
[2017-12-09] MEDS: PANTOPRAZOLE 20 MG TABLET (FP) PO SCH (11:39)
[2017-12-09] MEDS: ERTAPENEM SODIUM 1 GM in SODIUM CHLORIDE 100 ML IVPB SCH (11:40)
--- NOTE | 2017-12-09 11:49 | PN ---
Progress Note, Physician History of Present Illness: patient stable according to the patient he has been having draiange from the foot d/w the nursing staff will plan to cx the wound - Current Medication List Current Medications: Active Medications Acetaminophen (Tylenol -) 650 mg PO Q4H PRN PRN Reason: PAIN LEVEL 1-5 Ertapenem 1 gm/ Sodium (Chloride) 100 mls @ 200 mls/hr IVPB DAILY [facility] PRN Reason: Protocol Last Admin: 12/09/17 11:40 Dose: 200 mls/hr Insulin Aspart (Novolog Vial Sliding Scale -) 1 vial SQ ACHS [facility] PRN Reason: Protocol Last Admin: 12/09/17 11:41 Dose: 2 unit Insulin Detemir (Levemir Vial) 10 units SQ BID@0700,2200 [facility] Last Admin: 12/09/17 06:48 Dose: 10 units Multivitamins/Minerals/Vitamin C (Tab-A-Vit -) 1 tab PO DAILY [facility] Last Admin: 12/09/17 11:39 Dose: 1 tab Nystatin (Mycostatin Ointment -) 1 applic TP DAILY [facility] Last Admin: 12/08/17 11:34 Dose: 1 applic Pantoprazole Sodium (Protonix -) 20 mg PO DAILY [facility] Last Admin: 12/09/17 11:39 Dose: 20 mg - Objective Vital Signs: Vital Signs Temperature 97.6 F 12/09/17 06:33 Pulse Rate 78 12/09/17 06:33 Respiratory Rate 20 12/09/17 06:33 Blood Pressure 136/78 12/09/17 06:33 O2 Sat by Pulse Oximetry (%) 100 12/08/17 22:00 Constitutional: Yes: No Distress, Calm, Obese Cardiovascular: Yes: S1, S2 Respiratory: Yes: Regular, CTA Bilaterally Gastrointestinal: Yes: Normal Bowel Sounds, Soft Musculoskeletal: Yes: Other Extremities: Yes: Other Wound/Incision: Yes: Clean/Dry, Draining, Other (3rd toe looks a little better) Neurological: Yes: Alert, Oriented Psychiatric: Yes: Alert, Oriented Labs: CBC, BMP 12/08/17 05:30 12/08/17 05:30 - ....Imaging MRI: Report Reviewed, Image Reviewed Assessment/Plan obesity onchomycosis r/o osteo left 3rd toe cellulitis d/w the staff---send the cx of the drainage patient will need at least 4 weeks of abx plan conitnue ertapenam mri result noted will plan further treatment accordingly rest as per primary team
[2017-12-09] MEDS: NYSTATIN 100000 UNIT/GM TOPICAL OINTMENT 15 GM TUBE TP SCH (11:55)
--- NOTE | 2017-12-09 12:53 | PN ---
Progress Note (short form) - Note Progress Note: Patient seen in bed with an infected 3rd toe left. Tmax 97.6, vss +improved cellulitis 3rd toe left, +om, -drainage, -mal odor, -tender, wbc=5.3, demarcating distal 1/3 left 3rd toe, cellulitis diabetes mellitus r/o pvd om Awaiting vascular and read ID note. Will follow. Betadine dressing change daily. post op shoe left. May go home if medically stable and antibiotics as per ID.
[2017-12-09] MEDS ORDERED: PICC LINE 8 ML FLUSH PROTOCOL IVPUSH PRN (14:36)
--- NOTE | 2017-12-09 17:12 | PN ---
Physical Exam: SUBJECTIVE: Patient seen and examined No acute events overnight. Feels well this morning. Denies fever, chills, pain. OBJECTIVE: Vital Signs Period Temp Pulse Resp BP Sys/Cruz Pulse Ox Last 24 Hr 97.6 F-98.6 F 72-89 18-20 116-137/72-92 100 GENERAL: Awake, alert, and fully oriented, in no acute distress. HEAD: Normal with no signs of trauma. EYES: Pupils equal, round and reactive to light, extraocular movements intact, sclera anicteric, conjunctiva clear. No lid lag. EARS, NOSE, THROAT: Moist mucous membranes. NECK: supple LUNGS: Breath sounds equal, clear to auscultation bilaterally. No wheezes, and no crackles. No accessory muscle use. HEART: Regular rate and rhythm, normal S1 and S2 ABDOMEN: Soft, nontender, not distended, normoactive bowel sounds, no guarding, no rebound, no masses. MUSCULOSKELETAL: No CVA tenderness. UPPER EXTREMITIES: 2+ pulses, warm, well-perfused. No cyanosis. No clubbing. No peripheral edema. LOWER EXTREMITIES: 1+ pulses, warm, well-perfused. No calf tenderness. R leg thinner and shorter than L. Some echymotic lesions and calluses on 5th toe and 1st toe. No peripheral edema. R ankle trace edema, no calf tenderness 1+ pulse, 3rd toe edematous, mildly tender, erythematous, no drainage. b/l reduce sensation in toes. NEUROLOGICAL: Cranial nerves II-XII grossly intact. Normal speech. PSYCHIATRIC: Cooperative. Good eye contact. Appropriate mood and affect. SKIN: Warm, dry Laboratory Results - last 24 hr 12/08/17 12/08/17 12/09/17 16:58 20:50 05:58 POC Glucometer 222 235 258 12/09/17 11:34 POC Glucometer 200 Active Medications Generic Name Dose Route Start Last Admin Trade Name Freq PRN Reason Stop Dose Admin Acetaminophen 650 mg 12/06/17 16:10 Tylenol - PO Q4H PRN PAIN LEVEL 1-5 IV Flush 8 ml 12/09/17 14:36 Picc Line Flush IVPUSH PRN PRN Protocol Ertapenem 1 gm/ Sodium 100 mls @ 200 mls/hr 12/07/17 12:45 12/09/17 11:40 Chloride IVPB 200 mls/hr DAILY CHRIS Administration Protocol Insulin Aspart 1 vial 12/06/17 22:00 12/09/17 11:41 Novolog Vial Sliding Scale - SQ 2 unit ACHS CHRIS Administration Protocol Insulin Detemir 10 units 12/06/17 22:00 12/09/17 06:48 Levemir Vial SQ 10 units BID@0700,2200 CHRIS Administration Multivitamins/Minerals/Vitamin C 1 tab 12/07/17 10:00 12/09/17 11:39 Tab-A-Vit - PO 1 tab DAILY CHRIS Administration Nystatin 1 applic 12/08/17 10:00 12/09/17 11:55 Mycostatin Ointment - TP 1 applic DAILY CHRIS Administration Pantoprazole Sodium 20 mg 12/07/17 10:00 12/09/17 11:39 Protonix - PO 20 mg DAILY CHRIS Administration ASSESSMENT/PLAN: This is a 52 yo M with PMH of poorly controlled NIDDM2, osteomyelitis 5 years ago and R hip dysplasia, who presented with L 3rd toe infection, sent by podiatry for IV abx. L 3rd toe infection and left plantar callus, osteomyelitis -no SIRS -completed 4 days of po clindamycin prior to d/c -foot x ray not sensitive to r/o osteo -MRI reveals bone marrow edema of distal phalynx of 3rd toe suggestive of osteo and focal fluid in the plantar aspect of fourth metatarsal. -Ertapenem 1g per Dr. Doran, patient will need 4 weeks of therapy with picc line. -Tylenol 650 mg po q4h -Vascular surgery outpt follow up per podiatry NIDDM2 -poorly controlled, reports A1C 13 -A1c 11.5 -BGM ACHS; continue levemir 10 bid, ISS -hold po agents (actos, 30 mg po, Januvia 100 mg, Metformin 500 mg po bid) -outpatient endocrinology f/u -Will be d/c on insulin FEN no ivf lytes stable diabetic diet scds protonix 20 mg po daily Dispo: PICC line placement and d/c tomorrow on Ertapenem Visit type - Emergency Visit Emergency Visit: Yes ED Registration Date: 12/07/17 Care time: The patient presented to the Emergency Department on the above date and was hospitalized for further evaluation of their emergent condition. - New Patient This patient is new to me today: No - Critical Care Critical Care patient: No
--- NOTE | 2017-12-09 17:17 | PN ---
Teaching Attending Note Name of Resident: Nam Stewart ATTENDING PHYSICIAN STATEMENT I saw and evaluated the patient. I reviewed the resident's note and discussed the case with the resident. I agree with the resident's findings and plan as documented. SUBJECTIVE: No fever or chills, no pain , feels better OBJECTIVE: NAD Cv : RRR, noMRG Lungs : CTAB ext: no edema . L third toe black soft lesion on plantar aspect , with no drainage when squeezed and no skin break down no surrounding erythema ASSESSMENT AND PLAN: 52 y/o man with h/o DM , OM , and L hip dysplasia who presented with L third toe lesion and was found ot have OM . 1- OM of the L third toe: MRI reviewed. no open wounds on MTP junction . - Cont Ertapenem for total of 4 weeks. - PICC line in am - case was d/w Dr. Marti by team , no need for vascular studies as inpt . - will refer to vascular as out pt - no ound cx obtaine d, blood cx neg to date 2- DM : A1c 11. on metformin - cont levemir 10 BID - cont SSI - at dc will need insulin and cont metformin - education and teacing started 3- DVT PX Dispo : PICC and home tomorrow .
[2017-12-10] MEDS: INSULIN SLIDING SCALE (NOVOLOG) 1 VIAL SQ SCH ×2 (06:35→11:44)
[2017-12-10] MEDS: INSULIN DETEMIR 100 UNITS/ML MDV SQ SCH (06:36)
[2017-12-10 09:10] VITALS: BP 125/59; PULSE 78; TEMP 98
[2017-12-10] MEDS: ERTAPENEM SODIUM 1 GM in SODIUM CHLORIDE 100 ML IVPB SCH (10:50)
[2017-12-10] MEDS: NYSTATIN 100000 UNIT/GM TOPICAL OINTMENT 15 GM TUBE TP SCH (11:43)
[2017-12-10] MEDS: PANTOPRAZOLE 20 MG TABLET (FP) PO SCH (11:44)
[2017-12-10] MEDS: MULTIVITAMINS (DAILY MVI) TABLET (FP) PO SCH (11:44)
--- NOTE | 2017-12-10 12:04 | PN ---
Progress Note, Physician History of Present Illness: patient stable doing well dressing changed by podiatry patient with no complaints - Current Medication List Current Medications: Active Medications Acetaminophen (Tylenol -) 650 mg PO Q4H PRN PRN Reason: PAIN LEVEL 1-5 IV Flush (Picc Line Flush) 8 ml IVPUSH PRN PRN PRN Reason: Protocol Ertapenem 1 gm/ Sodium (Chloride) 100 mls @ 200 mls/hr IVPB DAILY CHRIS PRN Reason: Protocol Last Admin: 12/10/17 10:50 Dose: 200 mls/hr Insulin Aspart (Novolog Vial Sliding Scale -) 1 vial SQ ACHS CHRIS PRN Reason: Protocol Last Admin: 12/10/17 11:44 Dose: 4 unit Insulin Detemir (Levemir Vial) 10 units SQ BID@0700,2200 [facility] Last Admin: 12/10/17 06:36 Dose: 10 units Multivitamins/Minerals/Vitamin C (Tab-A-Vit -) 1 tab PO DAILY [facility] Last Admin: 12/10/17 11:44 Dose: 1 tab Nystatin (Mycostatin Ointment -) 1 applic TP DAILY [facility] Last Admin: 12/10/17 11:43 Dose: 1 applic Pantoprazole Sodium (Protonix -) 20 mg PO DAILY [facility] Last Admin: 12/10/17 11:44 Dose: 20 mg - Objective Vital Signs: Vital Signs Temperature 98.0 F 12/10/17 09:08 Pulse Rate 78 12/10/17 09:08 Respiratory Rate 18 12/10/17 09:08 Blood Pressure 125/59 12/10/17 09:08 O2 Sat by Pulse Oximetry (%) 98 12/09/17 22:00 Constitutional: Yes: No Distress, Calm, Obese Cardiovascular: Yes: Regular Rate and Rhythm Respiratory: Yes: Regular, CTA Bilaterally Gastrointestinal: Yes: Normal Bowel Sounds, Soft Musculoskeletal: Yes: Other Extremities: Yes: Other Wound/Incision: Yes: Dressing Dry and Intact Neurological: Yes: Alert, Oriented Psychiatric: Yes: Alert, Oriented Labs: CBC, BMP 12/08/17 05:30 12/08/17 05:30 - ....Imaging MRI: Report Reviewed, Image Reviewed Assessment/Plan obesity onchomycosis osteo of the left foot left 3rd toe cellulitis plan continue ertapenam for 4 weeks check cbc bmp esr crp wound care rest as per primary team
--- NOTE | 2017-12-10 14:25 | DS ---
Physical Exam: Microbiology 12/06/17 13:09 Blood - Peripheral Venous Blood Culture - Preliminary NO GROWTH OBTAINED AFTER 96 HOURS, INCUBATION TO CONTINUE FOR 1 DAYS. 12/06/17 13:09 Blood - Peripheral Venous Blood Culture - Preliminary NO GROWTH OBTAINED AFTER 96 HOURS, INCUBATION TO CONTINUE FOR 1 DAYS. Selected Entries 12/10/17 12/10/17 09:08 10:00 Temperature 98.0 F Pulse Rate 78 Blood Pressure 125/59 O2 Sat by Pulse 98 Oximetry (%) Oxygen Delivery Room Air Method Laboratory Tests 12/06/17 12/07/17 12/07/17 13:09 06:13 06:13 WBC Hgb Hct Plt Count Sodium Potassium Chloride Carbon Dioxide Anion Gap BUN Creatinine Random Glucose 319 H* Hemoglobin A1c % 11.5 H Triglycerides 139 Cholesterol 172 Total LDL Cholesterol 115 H HDL Cholesterol 35 L 12/08/17 12/08/17 05:30 05:30 WBC 5.3 Hgb 14.1 Hct 41.0 Plt Count 154 Sodium 137 Potassium 4.0 Chloride 99 Carbon Dioxide 28 Anion Gap 10 BUN 16 D Creatinine 0.7 Random Glucose 224 H Hemoglobin A1c % Triglycerides Cholesterol Total LDL Cholesterol HDL Cholesterol Imaging: Foot xray: AP, oblique and lateral views reveal vascular calcifications, angulated toes with degenerative changes but no sign of a destructive process to suggest osteomyelitis. There is minimal calcaneal spurring along with bunion formation by the first MTP joint. No sign of a gross fracture. Blastic or lytic changes are not seen. Swelling, foreign body or soft tissue air is not visualized. If one is concerned about osteomyelitis, a three-phase bone scan or MR may be of help. Chest Xray: No acute pathology. Lower extremity MRI: 1. Tissue edema the foot especially over the dorsal lateral aspect. 2. Soft tissue edema and fluid of the distal phalanx of the third toe. 3. Probable bone marrow edema of the distal tuft of the distal phalanx of the third toe which in the setting of infection is most consistent with osteomyelitis. 4. Open wound and focal fluid of the plantar aspect of the fourth metatarsal head and fifth toe proximal phalanx without adjacent osteomyelitis. HOSPITAL COURSE: Date of Admission:12/07/17 Date of Discharge: 12/10/17 52 year old M with pmh of poorly controlled diabetes, prior osteomyelitis, and right hip dysplasia presented with left 3rd toe infection. Patient took 4 days of clindamycin outpatient and was sent in by podiatry for iv antibiotics due to drainage of fluid and inability to improve. Patient underwent foot xray and MRI (results above). Patient found to have osteomyelitis. Patient treated with Ertapenem 1 g. He will need 24 days of iv abx post discharge. He was sent home with a PICC line and will f/u with PCP, endocrine, vascular surgery, and podiatry. Patient will need weekly (CBC, BMP, ESR, CRP). In addition, patient's sugars were uncontrolled. Patient's Januvia and Actos were d/c. Patient was started on levemir 10 units sq bid and an insulin sliding scale outpatient. PCP FAX # Minutes to complete discharge: 45 Discharge Summary Reason For Visit: CELLULITIS, WOUND INFECTION Current Active Problems Cellulitis (Acute) Diabetic foot ulcer (Acute) Osteomyelitis of foot, left, acute (Acute) Congenital dysplasia of right hip (Chronic) NIDDY (non-insulin dependent diabetes mellitus in young) (Chronic) Condition: Stable - Instructions Diet, Activity, Other Instructions: You were in the hospital for an infection of your left foot. The ulcer on your 3rd left toe is involving the bone. This will require fpc antibiotic treatment with Ertapenem. Please follow up with your primary care provider (Dr. Benjamin Granda) within 1 week. You will need weekly lab draws (CBC, BMP, ESR, CRP) as well as a repeat MRI of the foot in 3 months to evaluate the progress. In addition, keep a log of your sugars. If your sugars are low (excess sweating, excessive hunger, fainting, nausea, vomiting, fatigue, lightheadedness, or shakiness), make sure to drink some orange juice. Always keep some glucose with you in case you have these symptoms. Please follow up with the infectious disease doctor, electrician refinery and vascular surgeon within 1 week for further evaluation. Start the following medications: Ertapenem 1 g daily infusion through the PICC line for 24 more days Levemir 10 units twice per day Insulin Sliding Scale: <100: 0 Units, CALL YOUR PCP 101-150: 0 UNITS of novolog 151-200: 2 UNITS of novolog 201-250: 4 UNITS of novolog 251-300: 6 UNITS of novolog 301-350: 8 UNITS of novolog, CALL YOUR PCP 351-400: 10 UNITS of novolog, CALL YOUR PCP >400: 12 UNITS of novolog, CALL YOUR PCP Continue your home medications except the following: Stop the following medications: -Clindamycin -Januvia -Actos Make sure to keep the toe covered with a clean gauze. *If you have chest pain, shortness of breath, or any new/worsening symptoms please come back to the hospital immediately Referrals: Debbie Doran MD [Staff Physician] - 1 Week ON STAFF,NOT [Primary Care Provider] - 1 Week Prem De La Torre MD [Staff Physician] - 1 Week Ellis Marti DPM [Staff Physician] - 1 Week Disposition: VNS/HOME HEALTH CARE - Home Medications Comprehensive Discharge Medication List: Ambulatory Orders Ergocalciferol (Vitamin D2) [Vitamin D2] 2,000 unit PO DAILY 12/06/17 Multivitamin [One Daily] 1 each PO DAILY 12/06/17 [place]-3S/Dha/Epa/Fish Oil [Fish Oil 1,200 mg Softgel] 1 each PO DAILY 12/06/17 Omeprazole 40 mg PO DAILY 12/06/17 metFORMIN HCL [Glucophage -] 500 mg PO BID 12/06/17 Ertapenem Sodium [Invanz -] 1 gm IVPB DAILY 24 Days vial 12/09/17 Insulin Aspart [Novolog Flexpen] 100 unit SQ AC #1 insuln.pen 12/10/17 Insulin Detemir [Levemir Flextouch] 100 unit SQ BID #1 insuln.pen 12/10/17 Lancets/Blood Glucose Strips [Fora [id number] [facility]] 1 each ACHS # 30 combo..pkg 12/10/17 Miscellaneous Drug Not In Syst [Outpatient Lab Test] 1 each ASDIR #1 misc Miscellaneous Medical Supply [Glucometer Device] 1 each .ROUTE ASDIR #1 kit Miscellaneous Medical Supply [Glucometer Test Strips #100] 1 each .ROUTE ASDIR # 1 box 12/10/17 Pen Needle, Diabetic [[place]] 1 each ASDIR #30 dis.needle 12/10/17 This patient is new to me today: No Emergency Visit: Yes ED Registration Date: 12/07/17 Care time: The patient presented to the Emergency Department on the above date and was hospitalized for further evaluation of their emergent condition. Critical Care patient: No - Discharge Referral Referred to [facility] Med P.C.: No
--- NOTE | 2017-12-10 19:01 | PN ---
Teaching Attending Note Name of Resident: Nam Stewart ATTENDING PHYSICIAN STATEMENT I saw and evaluated the patient. I reviewed the resident's note and discussed the case with the resident. I agree with the resident's findings and plan as documented. SUBJECTIVE: No fever or chills. no abd pain , no pain in foot OBJECTIVE: NAD Cv : RRR, no MRG Lungs : CTAB ext: no edema . L third toe black soft lesion on plantar aspect , with no drainage when squeezed and no skin break down no surrounding erythema ASSESSMENT AND PLAN: 52 y/o man with h/o DM , OM , and L hip dysplasia who presented with L third toe lesion and was found ot have OM . 1- OM of the L third toe: - Cont Ertapenem for total of 4 weeks. - f/u with vascular as ou tpt - f/u with Dr. Doran. -blood work weekly on Abx to be faxed to Dr. Doran 2- DM : A1c 11. - cont levemir 10 BID and SSI - metformin at [facility] home
== END 2017-12-10 15:03 | disposition home health service (06) | DRG 638 ==
LOC: JER 12:28 → JERBED 16:10 → J8W 12-07 04:26 → OBSVTOIN 12-07 13:11
PROVIDERS: ADMIT Internal Medicine; ATTEND Internal Medicine
DX: E11.65 Type 2 diabetes mellitus with hyperglycemia (principal); Z68.41 Body mass index [BMI] 40.0-44.9, adult; M86.172 Other acute osteomyelitis, left ankle and foot; L03.032 Cellulitis of left toe; Z79.4 Long term (current) use of insulin; Q65.89 Other specified congenital deformities of hip; E66.9 Obesity, unspecified; Z79.84 Long term (current) use of oral hypoglycemic drugs; B35.1 Tinea unguium; E11.69 Type 2 diabetes mellitus with other specified complication; L84 Corns and callosities
CPT/HCPCS: 36415; 36569; 71046-TC-FY; 73630-TC-LT; 73718-LT; 77001-TC-FY; 80048; 80053; 80061; 82962; 83036; 83721; 83735; 84100; 85025; 85651; 86140; 87040; 93005; 93010; 99284-25; C1751; G0378

== ENCOUNTER 2018-06-26 17:22 | Inpatient (IN) | payer OTHER ==
[2018-06-26 17:30] VITALS: BMI 40.3
--- NOTE | 2018-06-26 17:41 | PDOC ---
History of Present Illness - General History Source: Patient Exam Limitations: No Limitations - History of Present Illness Initial Comments: 06/26/18 18:39 The patient is a 53-year-old male with past medical history significant for hip dysplasia with R. foot prosthetic and DM was sent to the emergency department by compensation supervisor for evaluation for a toe wound. The patient presents with a wound to the left 3rd toe thats been progressively worsening for the past 1 month. The patient reports he noticed an increase in discoloration to the wound and the wound looks infected, spoke with his compensation supervisor who referred the patient to the emergency department. The patient reports a similar incident in November 2017, which was treated with Ertapenem and sent home with a PICC. Denies fever, chills, cough, chest pain, SOB, abdominal pain, urinary concern, numbness, tingling, loss of sensation, Paresthesia or pain. Allergies: sulfamethoxazole, amoxicillin, trimethoprim Social history: No past or present use tobacco, alcohol or recreational drug use reported. Surgical history: PCP: Dr. Javier. Benjamin Photo Editor: Ellis Marti. <Cori Garibay - Last Filed: 06/26/18 18:42> <Jimena Barrett - Last Filed: 06/26/18 19:19> - General Chief Complaint: Wound Stated Complaint: TOE INFECTION Time Seen by Provider: 06/26/18 17:39 Past History <Cori Garibay - Last Filed: 06/26/18 18:42> - Past Medical History COPD: No Diabetes: Yes - Immunization History Immunization Up to Date: Yes - Suicide/Smoking/Psychosocial Hx Smoking History: Never smoked Number of Cigarettes Smoked Daily: 10 Information on smoking cessation initiated: No <Jimena Barrett - Last Filed: 06/26/18 19:19> - Past Medical History Allergies/Adverse Reactions: Allergies Allergy/AdvReac Type Severity Reaction Status Date / Time amoxicillin Allergy Rash Verified 06/26/18 17:25 sulfamethoxazole Allergy Rash Verified 06/26/18 17:25 [From Bactrim] trimethoprim [From Bactrim] Allergy Rash Verified 06/26/18 17:25 Home Medications: Ambulatory Orders Ergocalciferol (Vitamin D2) [Vitamin D2] 2,000 unit PO DAILY 12/06/17 Multivitamin [One Daily] 1 each PO DAILY 12/06/17 [place]-3S/Dha/Epa/Fish Oil [Fish Oil 1,200 mg Softgel] 1 each PO DAILY 12/06/17 Omeprazole 40 mg PO DAILY 12/06/17 metFORMIN HCL [Glucophage -] 500 mg PO BID 12/06/17 Ertapenem Sodium [Invanz -] 1 gm IVPB DAILY 24 Days vial 12/09/17 Insulin Aspart [Novolog Flexpen] 100 unit SQ AC #1 insuln.pen 12/10/17 Insulin Detemir [Levemir Flextouch] 100 unit SQ BID #1 insuln.pen 12/10/17 Lancets/Blood Glucose Strips [Fora [id number] Strp-Lnct] 1 each ACHS # 30 combo..pkg 12/10/17 Miscellaneous Drug Not In Syst [Outpatient Lab Test] 1 each ASDIR #1 misc Miscellaneous Medical Supply [Glucometer Device] 1 each .ROUTE ASDIR #1 kit Miscellaneous Medical Supply [Glucometer Test Strips #100] 1 each .ROUTE ASDIR # 1 box 12/10/17 Pen Needle, Diabetic [[place]] 1 each ASDIR #30 dis.needle 12/10/17 Review of Systems - Review of Systems Able to Perform ROS?: Yes Comments:: 06/26/18 18:42 GENERAL/CONSTITUTIONAL: No fever or chills. No weakness. HEAD, EYES, EARS, NOSE AND THROAT: No change in vision. No ear pain or discharge. No sore throat. CARDIOVASCULAR: No chest pain or shortness of breath. RESPIRATORY: No cough, wheezing, or hemoptysis. GASTROINTESTINAL: No nausea, vomiting, diarrhea or constipation. GENITOURINARY: No dysuria, frequency, or change in urination. MUSCULOSKELETAL: (+) Wound to the L. 3rd toe, no pain. No joint or muscle swelling or pain. No neck or back pain. SKIN: No rash NEUROLOGIC: No headache, vertigo, loss of consciousness, or change in strength/ sensation. ENDOCRINE: No increased thirst. No abnormal weight change. HEMATOLOGIC/LYMPHATIC: No anemia, easy bleeding, or history of blood clots. ALLERGIC/IMMUNOLOGIC: No hives or skin allergy. <Cori Garibay - Last Filed: 06/26/18 18:42> *Physical Exam - Vital Signs Last Vital Signs Temp Pulse Resp BP Pulse Ox 98.5 F 87 18 138/74 99 06/26/18 17:25 06/26/18 17:25 06/26/18 17:25 06/26/18 17:25 06/26/18 17:25 - Physical Exam Comments: 06/26/18 18:41 GENERAL: (+) Obese. Awake, alert, and fully oriented, in no acute distress HEAD: No signs of trauma EYES: PERRLA, EOMI, sclera anicteric, conjunctiva clear ENT: Auricles normal inspection, hearing grossly normal, nares patent, oropharynx clear without exudates. Moist mucosa NECK: Normal ROM, supple, no lymphadenopathy, JVD, or masses LUNGS: Breath sounds equal, clear to auscultation bilaterally. No wheezes, and no crackles HEART: Regular rate and rhythm, normal S1 and S2, no murmurs, rubs or gallops ABDOMEN: Soft, nontender, normoactive bowel sounds. No guarding, no rebound. No masses EXTREMITIES: (+) extension prosthetic foot on the right, L. middle 3rd toe with ecchymosis, erythema and swelling. Normal range of motion, no edema. No clubbing or cyanosis. No cords or tenderness NEUROLOGICAL: Cranial nerves II through XII grossly intact. Normal speech. SKIN: Warm, Dry, normal turgor, no rashes or lesions noted. <Cori Garibay - Last Filed: 06/26/18 18:42> - Vital Signs Last Vital Signs Temp Pulse Resp BP Pulse Ox 98.5 F 87 18 138/74 99 06/26/18 17:25 06/26/18 17:25 06/26/18 17:25 06/26/18 17:25 06/26/18 17:25 <Jimena Barrett - Last Filed: 06/26/18 19:19> ED Treatment Course - LABORATORY CBC & Chemistry Diagram: 06/26/18 18:20 06/26/18 18:20 - ADDITIONAL ORDERS Additional order review: 06/26/18 18:20 RBC 5.02 MCV 87.8 MCHC 33.8 RDW 13.0 MPV 8.5 Neutrophils % 74.7 Lymphocytes % 11.6 D Monocytes % 6.5 Eosinophils % 6.3 H D Basophils % 0.9 <Cori Garibay - Last Filed: 06/26/18 18:42> - LABORATORY CBC & Chemistry Diagram: 06/26/18 18:20 06/26/18 18:20 <Jimena Barrett - Last Filed: 06/26/18 19:19> Medical Decision Making - Medical Decision Making 06/26/18 18:03 a/p: 53yo male with L diabetic toe infection -increasing erythema/purple discoloration -no f/c -no lymphangitic spread -has been on invanz in the past -nontoxic in appearance, thought toe is erythema so concern for osteo -sent by Podiatry for iv abx -ID is dr. doran 06/26/18 18:05 discussed the case with Dr. Doran - will start vanco and invanz pending cultures 06/26/18 18:47 dr. doran at the bedside microblog sent to [facility] 06/26/18 19:18 case discussed with [facility] who accepts pt to service <Jimena Barrett - Last Filed: 06/26/18 19:19> *DC/Admit/Observation/Transfer - Attestations Scribe Attestion: 06/26/18 18:42 Documentation prepared by Cori Garibay, acting as hospitalist medical director for Jimena Barrett DO. <Cori Garibay - Last Filed: 06/26/18 18:42> - Discharge Dispostion Decision to Admit order: Yes - Attestations Physician Attestion: 06/26/18 18:06 I, Dr. Jimena Barrett DO, attest that this document has been prepared under my direction and personally reviewed by me in its entirety. I further attest, that it accurately reflects all work, treatment, procedures and medical decision -making performed by me. <Jimena Barrett - Last Filed: 06/26/18 19:19> Diagnosis at time of Disposition: Diabetic foot ulcer - Discharge Dispostion Condition at time of disposition: Fair - Referrals Referrals: Benjamin Javier MD [Primary Care Provider] - - Patient Instructions - Post Discharge Activity
--- NOTE | 2018-06-26 17:49 | PDOC ---
History of Present Illness - General Chief Complaint: Wound Stated Complaint: TOE INFECTION Time Seen by Provider: 06/26/18 17:39 Past History - Past Medical History Allergies/Adverse Reactions: Allergies Allergy/AdvReac Type Severity Reaction Status Date / Time amoxicillin Allergy Rash Verified 06/26/18 17:25 sulfamethoxazole Allergy Rash Verified 06/26/18 17:25 [From Bactrim] trimethoprim [From Bactrim] Allergy Rash Verified 06/26/18 17:25 Home Medications: Ambulatory Orders Ergocalciferol (Vitamin D2) [Vitamin D2] 2,000 unit PO DAILY 12/06/17 Multivitamin [One Daily] 1 each PO DAILY 12/06/17 [place]-3S/Dha/Epa/Fish Oil [Fish Oil 1,200 mg Softgel] 1 each PO DAILY 12/06/17 Omeprazole 40 mg PO DAILY 12/06/17 metFORMIN HCL [Glucophage -] 500 mg PO BID 12/06/17 Ertapenem Sodium [Invanz -] 1 gm IVPB DAILY 24 Days vial 12/09/17 Insulin Aspart [Novolog Flexpen] 100 unit SQ AC #1 insuln.pen 12/10/17 Insulin Detemir [Levemir Flextouch] 100 unit SQ BID #1 insuln.pen 12/10/17 Lancets/Blood Glucose Strips [Fora [id number] [facility]] 1 each ACHS # 30 combo..pkg 12/10/17 Miscellaneous Drug Not In Syst [Outpatient Lab Test] 1 each ASDIR #1 misc Miscellaneous Medical Supply [Glucometer Device] 1 each .ROUTE ASDIR #1 kit Miscellaneous Medical Supply [Glucometer Test Strips #100] 1 each .ROUTE ASDIR # 1 box 12/10/17 Pen Needle, Diabetic [[place]] 1 each ASDIR #30 dis.needle 12/10/17 COPD: No Diabetes: Yes - Immunization History Immunization Up to Date: Yes - Suicide/Smoking/Psychosocial Hx Smoking History: Never smoked Number of Cigarettes Smoked Daily: 10 Information on smoking cessation initiated: No *Physical Exam - Vital Signs Last Vital Signs Temp Pulse Resp BP Pulse Ox 98.5 F 87 18 138/74 99 06/26/18 17:25 06/26/18 17:25 06/26/18 17:25 06/26/18 17:25 06/26/18 17:25 *DC/Admit/Observation/Transfer - Referrals Referrals: Benjamin Javier MD [Primary Care Provider] - - Patient Instructions - Post Discharge Activity
[2018-06-26] MEDS ORDERED: ERTAPENEM SODIUM 1 GM/50 ML PRE-DOCKED IVPB ONE (18:06)
[2018-06-26] MEDS ORDERED: VANCOMYCIN 1 GRAM (PRE-DOCKED) 1,000 MG/250 ML BAG IVPB ONE ×2 (18:06→19:03)
[2018-06-26 18:31] LABS: BASO % 0.9 % (0-2.0); EOS % 6.3 % (0-4.5); HEMATOCRIT 44.1 % (35.4-49); HEMOGLOBIN 14.9 GM/dL (11.7-16.9); LYMPH % 11.6 % (8-40); MCH 29.6 pg (25.7-33.7); MCHC 33.8 g/dl (32.0-35.9); MEAN CELL VOLUME 87.8 fl (80-96); MEAN PLT VOLUME 8.5 fl (7.5-11.1); MONO % 6.5 % (3.8-10.2); NEUT % 74.7 % (42.8-82.8); PLATELET COUNT 181 K/MM3 (134-434); RBC 5.02 M/mm3 (4.00-5.60); WHITE BLOOD COUNT 5.6 K/mm3 (4.0-10.0)
[2018-06-26 18:44] LABS: INR 1.01 (0.83-1.09); PROTHROMBIN TIME (PATIENT) 11.9 SEC (9.7-13.0)
[2018-06-26 18:46] LABS: ACTIVATED PTT 33.9 SECONDS (25.2-36.5)
[2018-06-26 18:55] LABS: ALBUMIN 4.2 g/dl (3.4-5.0); ALK PHOS 136 U/L (45-117); ANION GAP 5 MMOL/L (8-16); BILIRUBIN,TOTAL 0.7 mg/dL (0.2-1); BLOOD UREA NITROGEN 16 mg/dL (7-18); CALCIUM 9.9 mg/dL (8.5-10.1); CHLORIDE 106 mmol/L (98-107); CO2 29 mmol/L (21-32); CREATININE 0.7 mg/dL (0.55-1.3); GLUCOSE,RANDOM 123 mg/dL (74-106); POTASSIUM 4.5 mmol/L (3.5-5.1); SGOT/AST 23 U/L (15-37); SGPT/ALT 28 U/L (13-61); SODIUM 140 mmol/L (136-145); TOT PROT 8.4 g/dl (6.4-8.2)
--- NOTE | 2018-06-26 18:56 | CON.ID ---
Consult Consult Specialty:: infectious diseases Reason for Consultation:: left 3rd foot gangrenous changes - History of Present Illness Chief Complaint: blackening of the left 3rd foor toe History of Present Illness: 53 y/o M with PMHx of Right hip dysplasia with Right foot prosthetic, IDDM, Osteomyelitis and GERD presents to [facility] with a left 3rd toe wound. Patient says 5 weeks ago, he noticed a "blood blister" on the plantar surface of his Left 3rd toe. He contacted Dr. Marti and was advised to rest his foot for 1 week, and to use his surgical shoe for ambulation. He has noticed some improvement and decrease in size until approximately 3 days ago when the blister started to increase in size, becoming more discolored and now draining very small amounts of brown discharge. Today he noticed the size and the swelling increased, contacted podiatry and was told to visit the ED. Denies any recent trauma to the area, bug bites, rashes, new creams/medications. Patient acknowledges chronic numbness and tingling from his diabetic neuropathy ; says its decreased sensation, not total loss of sensation. Denies fevers, chills, chest pain, SOB, nausea, vomiting, diarrhea, constipation , dysuria. patient about couple of months back had completed the treatment for osteo - History Source History Provided By: Patient Limitations to Obtaining History: No Limitations - Smoking History Smoking history: Never smoked Aproximately how many cigarettes per day: 10 Home Medications - Allergies Allergies/Adverse Reactions: Allergies Allergy/AdvReac Type Severity Reaction Status Date / Time amoxicillin Allergy Rash Verified 06/26/18 17:25 sulfamethoxazole Allergy Rash Verified 06/26/18 17:25 [From Bactrim] trimethoprim [From Bactrim] Allergy Rash Verified 06/26/18 17:25 - Home Medications Home Medications: Ambulatory Orders Ergocalciferol (Vitamin D2) [Vitamin D2] 2,000 unit PO DAILY 12/06/17 Multivitamin [One Daily] 1 each PO DAILY 12/06/17 [place]-3S/Dha/Epa/Fish Oil [Fish Oil 1,200 mg Softgel] 1 each PO DAILY 12/06/17 Omeprazole 40 mg PO DAILY 12/06/17 metFORMIN HCL [Glucophage -] 500 mg PO BID 12/06/17 Insulin Aspart [Novolog Flexpen] 8 unit SQ AC PRN 06/26/18 Insulin Detemir [Levemir Flextouch] 20 unit SQ BID 06/26/18 Review of Systems - Review of Systems Constitutional: reports: No Symptoms Eyes: reports: No Symptoms HENT: reports: No Symptoms Neck: reports: No Symptoms Cardiovascular: reports: No Symptoms Respiratory: reports: No Symptoms Gastrointestinal: reports: No Symptoms Genitourinary: reports: No Symptoms Musculoskeletal: reports: Muscle Pain, Other Integumentary: reports: Change in Color, Wound, Other (blacke eschar on the 3rd toe) Neurological: reports: No Symptoms Endocrine: reports: No Symptoms Hematology/Lymphatic: reports: No Symptoms Psychiatric: reports: No Symptoms Physical Exam Vital Signs: Vital Signs Temperature 98.5 F 06/26/18 17:25 Pulse Rate 87 06/26/18 17:25 Respiratory Rate 18 06/26/18 17:25 Blood Pressure 138/74 06/26/18 17:25 O2 Sat by Pulse Oximetry (%) 99 06/26/18 17:25 Constitutional: Yes: Well Nourished, No Distress, Calm, Obese Eyes: Yes: EOM Intact HENT: Yes: Atraumatic, Normocephalic Neck: Yes: Supple, Trachea Midline Cardiovascular: Yes: Regular Rate and Rhythm Respiratory: Yes: Regular, CTA Bilaterally Gastrointestinal: Yes: Normal Bowel Sounds, Soft Musculoskeletal: Yes: Other Extremities: Yes: Other (left foot 3rd toe blackening of the skin with warmth) Wound/Incision: Yes: Open to air Neurological: Yes: Alert, Oriented Psychiatric: Yes: Alert, Oriented Labs: CBC, BMP 06/26/18 18:20 06/26/18 18:20 Imaging - Results Chest X-ray: Report Reviewed, Image Reviewed X-ray: Report Reviewed, Image Reviewed Assessment/Plan obesity onchomycosis r/o osteo left 3rd toe cellulitis plan' continue invanz monitor await for podiatry team evaluation wound care
[2018-06-26] MEDS ORDERED: ERTAPENEM SODIUM 1 GM VIAL ONE (19:03)
--- NOTE | 2018-06-26 20:12 | PN ---
Teaching Attending Note Name of Resident: Niru Salinas ATTENDING PHYSICIAN STATEMENT I saw and evaluated the patient. I reviewed the resident's note and discussed the case with the resident. I agree with the resident's findings and plan as documented. SUBJECTIVE: Patient is a 53 year old man with PMH of osteomyelitis, hip dysplasia with R. foot prosthetic and NIDDM sent to the ER by inspector printed circuit boards for evaluation for a toe wound. He has had a wound on the left 3rd toe thats been progressively worsening for the past 1 month. The patient reports he noticed an increase in discoloration to the wound and the wound looks infected, - spoke with his inspector printed circuit boards who referred the patient to the ER. The patient reports a similar incident in November 2017, which was treated with Ertapenem and sent home with a PICC. Denies fever,chills, cough, chest pain, SOB, abdominal pain, urinary concern, numbness, tingling, loss of sensation or pain. OBJECTIVE: Alert Vital Signs Period Temp Pulse Resp BP Sys/Cruz Pulse Ox Last 24 Hr 98.5 F 87 18 138/74 99 HEENT: No Jaundice, eye redness or discharge, PERRLA, EOMI. Normocephalic, atraumatic. External ears are normal and hearing is grossly intact. No nasal discharge. Neck: Supple, nontender. No palpable adenopathy or thyromegaly. No JVD Chest: Good effort. Clear to auscultation and percussion. Heart: Regular. No S3, rub or murmur Abdomen: Not distended, soft, nontender and no HSM. No rebound or guarding. Normoactive bowel sounds. Ext: Peripheral pulses intact. Right foot prosthetic shoe. Left leg edema. Ulcer on plantar and left lateral aspect of left 3rd toe with associated erythema and edema. Skin: Warm and dry. No petechiae, rash or ecchymosis. Neuro: Alert. Oriented x3. CN 2-12 grossly intact. Sensation grossly intact in all four extremities and DTR are symmetric. Home Medications Medication Instructions Recorded Ergocalciferol (Vitamin D2) 2,000 unit PO DAILY 12/06/17 [Vitamin D2] Multivitamin [One Daily] 1 each PO DAILY 12/06/17 [place]-3S/Dha/Epa/Fish Oil [Fish 1 each PO DAILY 12/06/17 Oil 1,200 mg Softgel] Omeprazole 40 mg PO DAILY 12/06/17 metFORMIN HCL [Glucophage -] 500 mg PO BID 12/06/17 Ertapenem Sodium [Invanz -] 1 gm IVPB DAILY 24 Days vial 12/09/17 Insulin Aspart [Novolog Flexpen] 100 unit SQ AC #1 insuln.pen 12/10/17 Insulin Detemir [Levemir Flextouch] 100 unit SQ BID #1 insuln.pen 12/10/17 Lancets/Blood Glucose Strips [Fora 1 each ACHS #30 combo..pkg 12/10/17 [id number] Strp-Lnct] Miscellaneous Drug Not In Syst 1 each ASDIR #1 misc 12/10/17 [Outpatient Lab Test] Miscellaneous Medical Supply 1 each .ROUTE ASDIR #1 kit 12/10/17 [Glucometer Device] Miscellaneous Medical Supply 1 each .ROUTE ASDIR #1 box 12/10/17 [Glucometer Test Strips #100] Pen Needle, Diabetic [[place]] 1 each ASDIR #30 dis.needle 12/10/17 Abnormal Lab Results 06/26/18 06/26/18 18:20 18:20 Eosinophils % 6.3 H D Anion Gap 5 L Random Glucose 123 H Alkaline Phosphatase 136 H Total Protein 8.4 H ASSESSMENT AND PLAN: 1. Infected diabetic toe ulcer - Will get wound culture, PVR, MRI of toe, Podiatry and vascular consults. Toe x-ray pending. Continue IV Invanz and Vancomycin as per ID. 2. DM - For now, we will hold the home diabetes drugs and implement sliding scale insulin regimen. Provide comprehensive diabetes care with patient teaching and counseling about the importance of euglycemia, eye care and foot care. 3. Obesity - Will provide patient all the necessary assistance, counseling and positive reinforcement to facilitate weight loss. Consult microsoft dynamics ax developer. 4. DVT prophylaxis - Heparin 5000u sq tid. 5. Advance directives - Full code
--- NOTE | 2018-06-26 20:55 | HP ---
CHIEF COMPLAINT: Left 3rd toe wound PCP: Dr. Demetrio Javier PODIATRY: Dr. Marti HISTORY OF PRESENT ILLNESS: 53 y/o M with PMHx of Right hip dysplasia with Right foot prosthetic, IDDM, Osteomyelitis and GERD presents to [facility] with a left 3rd toe wound. Patient says 5 weeks ago, he noticed a "blood blister" on the plantar surface of his Left 3rd toe. He contacted Dr. Marti and was advised to rest his foot for 1 week, and to use his surgical shoe for ambulation. He has noticed some improvement and decrease in size until approximately 3 days ago when the blister started to increase in size, becoming more discolored and now draining very small amounts of brown discharge. Today he noticed the size and the swelling increased, contacted podiatry and was told to visit the ED. Denies any recent trauma to the area, bug bites, rashes, new creams/medications. Patient acknowledges chronic numbness and tingling from his diabetic neuropathy ; says its decreased sensation, not total loss of sensation. Denies fevers, chills, chest pain, SOB, nausea, vomiting, diarrhea, constipation , dysuria. ER course was notable for: (1) Consulted Dr. 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[employer]) Ambulation: On his own without assitance Residence: Lives alone Family History: Allergies amoxicillin Allergy (Verified 06/26/18 17:25) Rash sulfamethoxazole [From Bactrim] Allergy (Verified 06/26/18 17:25) Rash trimethoprim [From Bactrim] Allergy (Verified 06/26/18 17:25) Rash HOME MEDICATIONS: Home Medications Medication Instructions Recorded Ergocalciferol (Vitamin D2) 2,000 unit PO DAILY 12/06/17 [Vitamin D2] Multivitamin [One Daily] 1 each PO DAILY 12/06/17 [place]-3S/Dha/Epa/Fish Oil [Fish 1 each PO DAILY 12/06/17 Oil 1,200 mg Softgel] Omeprazole 40 mg PO DAILY 12/06/17 metFORMIN HCL [Glucophage -] 500 mg PO BID 12/06/17 Ertapenem Sodium [Invanz -] 1 gm IVPB DAILY 24 Days vial 12/09/17 Insulin Aspart [Novolog Flexpen] 100 unit SQ AC #1 insuln.pen 12/10/17 Insulin Detemir [Levemir Flextouch] 100 unit SQ BID #1 insuln.pen 12/10/17 Lancets/Blood Glucose Strips [Fora 1 each ACHS #30 combo..pkg 12/10/17 [id number] Strp-Lnct] Miscellaneous Drug Not In Syst 1 each ASDIR #1 misc 12/10/17 [Outpatient Lab Test] Miscellaneous Medical Supply 1 each .ROUTE ASDIR #1 kit 12/10/17 [Glucometer Device] Miscellaneous Medical Supply 1 each .ROUTE ASDIR #1 box 12/10/17 [Glucometer Test Strips #100] Pen Needle, Diabetic [[place]] 1 each ASDIR #30 dis.needle 12/10/17 REVIEW OF SYSTEMS As per HPI PHYSICAL EXAMINATION Vital Signs - 24 hr 06/26/18 17:25 Temperature 98.5 F Pulse Rate 87 Respiratory 18 Rate Blood Pressure 138/74 O2 Sat by Pulse 99 Oximetry (%) GENERAL: A&Ox3, NAD HEAD: NCAT EYES: PERRLA, EOMI THROAT: Oropharynx clear without exudates. Moist mucous membranes. NECK: No JVD LUNGS: Breath sounds equal, clear to auscultation bilaterally. No wheezes. HEART: Regular rate and rhythm, normal S1 and S2 without murmur. ABDOMEN: Obese, Soft, nontender, not distended, + bowel sounds, no guarding. MUSCULOSKELETAL: No CVA tenderness. RIGHT LOWER EXTREMITY: Prosthetic leg placed over the RLE. chronic mid lovell discoloration, Decreased length compared to Left, overgrown toe nails LEFT LOWER EXTREMITY: Left lower extremity with 2+ edema. Left 3rd toe with dark eschar on the lateral aspect, mild surrounding erythema medially, minimal brown discharge. No calf tenderness. NEUROLOGICAL: Cranial nerves II-XII intact. Normal speech. PSYCHIATRIC: Cooperative. Good eye contact. Appropriate mood and affect. Laboratory Results - last 24 hr 10/06/18 10/06/18 10/06/18 18:20 18:20 18:20 WBC 5.6 RBC 5.02 Hgb 14.9 Hct 44.1 MCV 87.8 MCH 29.6 MCHC 33.8 RDW 13.0 Plt Count 181 MPV 8.5 Absolute Neuts (auto) 4.2 Neutrophils % 74.7 Lymphocytes % 11.6 D Monocytes % 6.5 Eosinophils % 6.3 H D Basophils % 0.9 Nucleated RBC % 0 PT with INR 11.90 INR 1.01 PTT (Actin FS) 33.9 Sodium 140 Potassium 4.5 Chloride 106 Carbon Dioxide 29 Anion Gap 5 L BUN 16 Creatinine 0.7 Creat Clearance w eGFR > 60 Random Glucose 123 H Calcium 9.9 Total Bilirubin 0.7 AST 23 ALT 28 Alkaline Phosphatase 136 H Total Protein 8.4 H Albumin 4.2 Active Medications Enoxaparin Sodium (Lovenox -) 40 mg SQ DAILY CHRIS Ertapenem 1 gm/ Sodium (Chloride) 50 mls @ 50 mls/hr IVPB DAILY [facility]RIS; Protocol Vancomycin HCl 1,000 mg/ (Dextrose) 250 mls @ 200 mls/hr IVPB Q24H CHRIS; Protocol Insulin Aspart (Novolog Vial Sliding Scale -) 1 vial SQ ACHS CH[facility]IS; Protocol Last Admin: 06/26/18 22:30 Dose: Not Given ASSESSMENT/PLAN: 53 y/o M with PMHx of Right hip dysplasia with Right foot prosthetic, IDDM, Osteomyelitis and GERD presents to [facility] with a left 3rd toe wound. 1. Left 3rd toe wound -Likely due to diabetic foot ulcer -ID (Dr. Doran) consulted -Podiatry (Dr. Marti) consulted -Continue on Vanco, Ertopenem -Left Foot XRay pending -Wound culture ordered -Can consider Vascular surgery consult for PVR -Can Consider MRI of toe 2. IDDM -Hold Home dose metformin -ISS BGMs ACHS 3. FEN -PO Fluids -Lytes wnl -Diabetic diet 4. PPx -DVT: Lovenox Dispo: Inpatient med-surg, will need med-rec Visit type - Emergency Visit Emergency Visit: Yes ED Registration Date: 06/26/18 Care time: The patient presented to the Emergency Department on the above date and was hospitalized for further evaluation of their emergent condition. - New Patient This patient is new to me today: Yes Date on this admission: 06/27/18 - Critical Care Critical Care patient: No
[2018-06-26] MEDS: INSULIN SLIDING SCALE (NOVOLOG) 1 VIAL SQ SCH (22:30)
[2018-06-27] MEDS: INSULIN SLIDING SCALE (NOVOLOG) 1 VIAL SQ SCH ×3 (06:43→17:18)
[2018-06-27 07:40] LABS: BASO % 0.8 % (0-2.0); EOS % 6.6 % (0-4.5); HEMATOCRIT 38.2 % (35.4-49); HEMOGLOBIN 12.9 GM/dL (11.7-16.9); LYMPH % 14.4 % (8-40); MCH 29.8 pg (25.7-33.7); MCHC 33.8 g/dl (32.0-35.9); MEAN CELL VOLUME 88.3 fl (80-96); MEAN PLT VOLUME 8.4 fl (7.5-11.1); MONO % 10.9 % (3.8-10.2); NEUT % 67.3 % (42.8-82.8); PLATELET COUNT 138 K/MM3 (134-434); RBC 4.33 M/mm3 (4.00-5.60); RDW 13.3 % (11.9-15.9); WHITE BLOOD COUNT 4.9 K/mm3 (4.0-10.0)
[2018-06-27 08:20] LABS: ALBUMIN 3.3 g/dl (3.4-5.0); ALK PHOS 101 U/L (45-117); ANION GAP 5 MMOL/L (8-16); BILIRUBIN,TOTAL 0.6 mg/dL (0.2-1); BLOOD UREA NITROGEN 17 mg/dL (7-18); CALCIUM 9.1 mg/dL (8.5-10.1); CHLORIDE 102 mmol/L (98-107); CO2 30 mmol/L (21-32); CREATININE 0.8 mg/dL (0.55-1.3); GLUCOSE,RANDOM 159 mg/dL (74-106); MAGNESIUM 1.6 mg/dL (1.8-2.4); PHOSPHOROUS 3.8 mg/dL (2.5-4.9); POTASSIUM 4.4 mmol/L (3.5-5.1); SGOT/AST 17 U/L (15-37); SGPT/ALT 21 U/L (13-61); SODIUM 138 mmol/L (136-145); TOT PROT 6.7 g/dl (6.4-8.2)
[2018-06-27] MEDS ORDERED: VANCOMYCIN 1,000 MG in DEXTROSE 5%-WATER - 250 ML IVPB SCH (10:00)
[2018-06-27] MEDS ORDERED: VANCOMYCIN 1 GRAM (PRE-DOCKED) 1,000 MG/250 ML BAG IVPB ONE (10:00)
[2018-06-27] MEDS: ENOXAPARIN NA (PORCINE) 40 MG/0.4 ML DISP.SYRIN SQ SCH (11:06)
[2018-06-27] MEDS ORDERED: INSULIN (NOVOLOG) ASPART 100 UNITS/ML 10ML VIAL ONE ×2 (11:33→17:50)
[2018-06-27] MEDS ORDERED: ERTAPENEM SODIUM 1 GM/50 ML PRE-DOCKED IVPB SCH (11:45)
--- NOTE | 2018-06-27 11:46 | PN ---
Progress Note, Physician History of Present Illness: stable no issues no changes - Current Medication List Current Medications: Active Medications Enoxaparin Sodium (Lovenox -) 40 mg SQ DAILY [facility] Last Admin: 06/27/18 11:06 Dose: Not Given Ertapenem (Invanz (Pre-Docked)) 1 gm IVPB DAILY [facility] Ertapenem 1 gm/ Sodium (Chloride) 50 mls @ 50 mls/hr IVPB DAILY [facility]; Protocol Insulin Aspart (Novolog Vial Sliding Scale -) 1 vial SQ ACHS CHRIS; Protocol Last Admin: 06/27/18 11:35 Dose: 2 units - Objective Vital Signs: Vital Signs Temperature 97.6 F 06/27/18 06:00 Pulse Rate 73 06/27/18 06:00 Respiratory Rate 18 06/27/18 06:00 Blood Pressure 148/79 06/27/18 06:00 O2 Sat by Pulse Oximetry (%) 99 06/26/18 17:25 Constitutional: Yes: No Distress, Calm, Obese Eyes: Yes: Conjunctiva Clear Cardiovascular: Yes: Regular Rate and Rhythm Respiratory: Yes: Regular, CTA Bilaterally Gastrointestinal: Yes: Normal Bowel Sounds, Soft Musculoskeletal: Yes: WNL Extremities: Yes: Other Integumentary: Yes: Other (blackening of left 3rd toe) Wound/Incision: Yes: Open to air Neurological: Yes: Alert, Oriented Psychiatric: Yes: Alert, Oriented Labs: CBC, BMP 06/27/18 06:00 06/27/18 06:00 INR, PTT INR 1.01 (0.83-1.09) 06/26/18 18:20
--- NOTE | 2018-06-27 12:57 | CONSULT ---
Consult Consult Specialty:: Podiatry - History of Present Illness Chief Complaint: Cellulitis 3rd toe left. History of Present Illness: Patient text me yesterday afternoon. Sent picture of foot called back and advised to come to ER. - History Source History Provided By: Patient - Past Medical History Endocrine: Yes: Diabetes Mellitus - Alcohol/Substance Use Hx Alcohol Use: No - Smoking History Smoking history: Never smoked Aproximately how many cigarettes per day: 10 Home Medications - Allergies Allergies/Adverse Reactions: Allergies Allergy/AdvReac Type Severity Reaction Status Date / Time amoxicillin Allergy Rash Verified 06/26/18 17:25 sulfamethoxazole Allergy Rash Verified 06/26/18 17:25 [From Bactrim] trimethoprim [From Bactrim] Allergy Rash Verified 06/26/18 17:25 - Home Medications Home Medications: Ambulatory Orders Ergocalciferol (Vitamin D2) [Vitamin D2] 2,000 unit PO DAILY 12/06/17 Multivitamin [One Daily] 1 each PO DAILY 12/06/17 [place]-3S/Dha/Epa/Fish Oil [Fish Oil 1,200 mg Softgel] 1 each PO DAILY 12/06/17 Omeprazole 40 mg PO DAILY 12/06/17 metFORMIN HCL [Glucophage -] 500 mg PO BID 12/06/17 Insulin Aspart [Novolog Flexpen] 8 unit SQ AC PRN 06/26/18 Insulin Detemir [Levemir Flextouch] 20 unit SQ BID 06/26/18 Physical Exam Vital Signs: Vital Signs Temperature 97.6 F 06/27/18 06:00 Pulse Rate 73 06/27/18 06:00 Respiratory Rate 18 06/27/18 06:00 Blood Pressure 148/79 06/27/18 06:00 O2 Sat by Pulse Oximetry (%) 99 06/26/18 17:25 Labs: CBC, BMP 06/27/18 06:00 06/27/18 06:00 Imaging - Results X-ray: Report Reviewed, Image Reviewed Problem List - Problems (1) Diabetic foot ulcer Assessment/Plan: cellulitis 3rd toe left r/o om Removed by gently pulling up on callous off of toe to expose underlying ulceration. Wound cultured. MRI ordered. Betadine dressing change daily. ID on case. will follow. Vascular consult. Code(s): E11.621 - TYPE 2 DIABETES MELLITUS WITH FOOT ULCER; L97.509 - NON- PRESSURE CHRONIC ULCER OTH PRT UNSP FOOT W UNSP SEVERITY Qualifiers: Diabetic foot ulcer location: toe Diabetes mellitus type: type 2 Laterality: left Non-pressure ulcer stage: with fat layer exposed Qualified Code(s): E11.621 - Type 2 diabetes mellitus with foot ulcer; L97.522 - Non- pressure chronic ulcer of other part of left foot with fat layer exposed
[2018-06-27] MEDS ORDERED: PT OWN MED DRAWER 7, Y5N ONE (15:55)
--- NOTE | 2018-06-27 17:15 | PN ---
Progress Note (short form) - Note Progress Note: Subjective: no fever or chills . No abd pain , no CP , no pain in foot. Objective: Vital Signs: Last Vital Signs Temp Pulse Resp BP Pulse Ox 98.2 F 88 20 141/77 99 06/27/18 13:53 06/27/18 13:53 06/27/18 13:53 06/27/18 13:53 06/26/18 17:25 Laboratory Results - last 24 hr 06/26/18 06/26/18 06/26/18 18:20 18:20 18:20 WBC 5.6 RBC 5.02 Hgb 14.9 Hct 44.1 MCV 87.8 MCH 29.6 MCHC 33.8 RDW 13.0 Plt Count 181 MPV 8.5 Absolute Neuts (auto) 4.2 Neutrophils % 74.7 Lymphocytes % 11.6 D Monocytes % 6.5 Eosinophils % 6.3 H D Basophils % 0.9 Nucleated RBC % 0 PT with INR 11.90 INR 1.01 PTT (Actin FS) 33.9 Sodium 140 Potassium 4.5 Chloride 106 Carbon Dioxide 29 Anion Gap 5 L BUN 16 Creatinine 0.7 Creat Clearance w eGFR > 60 POC Glucometer Random Glucose 123 H Calcium 9.9 Phosphorus Magnesium Total Bilirubin 0.7 AST 23 ALT 28 Alkaline Phosphatase 136 H Total Protein 8.4 H Albumin 4.2 06/26/18 06/27/18 06/27/18 22:25 05:35 06:00 WBC 4.9 RBC 4.33 Hgb 12.9 Hct 38.2 MCV 88.3 MCH 29.8 MCHC 33.8 RDW 13.3 Plt Count 138 D MPV 8.4 Absolute Neuts (auto) 3.3 Neutrophils % 67.3 Lymphocytes % 14.4 D Monocytes % 10.9 H Eosinophils % 6.6 H Basophils % 0.8 Nucleated RBC % 0 PT with INR INR PTT (Actin FS) Sodium Potassium Chloride Carbon Dioxide Anion Gap BUN Creatinine Creat Clearance w eGFR POC Glucometer 138.50454 165 Random Glucose Calcium Phosphorus Magnesium Total Bilirubin AST ALT Alkaline Phosphatase Total Protein Albumin 06/27/18 06/27/18 06:00 11:27 WBC RBC Hgb Hct MCV MCH MCHC RDW Plt Count MPV Absolute Neuts (auto) Neutrophils % Lymphocytes % Monocytes % Eosinophils % Basophils % Nucleated RBC % PT with INR INR PTT (Actin FS) Sodium 138 Potassium 4.4 Chloride 102 Carbon Dioxide 30 Anion Gap 5 L BUN 17 Creatinine 0.8 Creat Clearance w eGFR > 60 POC Glucometer 187 Random Glucose 159 H Calcium 9.1 Phosphorus 3.8 Magnesium 1.6 L Total Bilirubin 0.6 AST 17 ALT 21 Alkaline Phosphatase 101 Total Protein 6.7 Albumin 3.3 L Physical Exam: NAD Cv: RRr Lungs: CTAB ext: deformed atrophic R LE . L leg with no edema or erythema. calcus withulcer on plantar aspect of L third toe with no drainage expressed. DP 2+ on L a calus on lateral aspect of R 5th toe . no drainage A/P This is a 52 yo M with PMH of IDDM, osteomyelitis of L 3rd toe, and R hip dysplasia, who presented with L 3rd toe non healing ulcer. 1- L 3rd toe non healing ulcer with infection . suspicion for OM . MRI from previous admisison had OM in same place. previous cx are neg - cont ertapenem - wound cx sent - MRI pending - ? amputation if OM 2- DM ; - resume his levemir 20 HS - cont SSI - DC HS coverage of SSI , to avoid hypoglycemis ( BGM of 100 gives him sx ) 3- DVT px Visit type - Emergency Visit Emergency Visit: Yes ED Registration Date: 06/26/18 Care time: The patient presented to the Emergency Department on the above date and was hospitalized for further evaluation of their emergent condition. - New Patient This patient is new to me today: Yes Date on this admission: 06/27/18 - Critical Care Critical Care patient: No
[2018-06-27] MEDS: ERTAPENEM SODIUM 1 GM in SODIUM CHLORIDE 50 ML IVPB SCH (17:25)
[2018-06-28] MEDS: INSULIN SLIDING SCALE (NOVOLOG) 1 VIAL SQ SCH ×3 (06:31→17:28)
[2018-06-28] MEDS ORDERED: INSULIN SLIDING SCALE (NOVOLOG) 1 VIAL SQ SCH ×2 (07:00→23:43)
--- NOTE | 2018-06-28 08:33 | CONSULT ---
Consult Consult Specialty:: Vascular Surgery - History of Present Illness History of Present Illness: 53 year old man DM, peripheral neuropathy with non-healing wound of left 3rd toe and metatarsal ulcer. He has never smokes. He denies a history of PAD. 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 - History Source History Provided By: Patient, Medical Record - Past Medical History Endocrine: Yes: Diabetes Mellitus - Alcohol/Substance Use Hx Alcohol Use: No - Smoking History Smoking history: Never smoked Aproximately how many cigarettes per day: 0 Home Medications - Allergies Allergies/Adverse Reactions: Allergies Allergy/AdvReac Type Severity Reaction Status Date / Time amoxicillin Allergy Rash Verified 06/26/18 17:25 sulfamethoxazole Allergy Rash Verified 06/26/18 17:25 [From Bactrim] trimethoprim [From Bactrim] Allergy Rash Verified 06/26/18 17:25 - Home Medications Home Medications: Ambulatory Orders Ergocalciferol (Vitamin D2) [Vitamin D2] 2,000 unit PO DAILY 12/06/17 Multivitamin [One Daily] 1 each PO DAILY 12/06/17 [place]-3S/Dha/Epa/Fish Oil [Fish Oil 1,200 mg Softgel] 1 each PO DAILY 12/06/17 Omeprazole 40 mg PO DAILY 12/06/17 metFORMIN HCL [Glucophage -] 500 mg PO BID 12/06/17 Insulin Aspart [Novolog Flexpen] 8 unit SQ AC PRN 06/26/18 Insulin (Levemir) [Levemir Vial] 20 unit SQ HS 06/27/18 Physical Exam Vital Signs: Vital Signs Temperature 97.7 F 06/28/18 06:00 Pulse Rate 75 06/28/18 06:00 Respiratory Rate 18 06/28/18 06:00 Blood Pressure 112/58 L 06/28/18 06:00 O2 Sat by Pulse Oximetry (%) 99 06/26/18 17:25 Constitutional: Yes: Obese Gastrointestinal: Yes: Soft Extremities: Yes: Deformity (Right leg shorterned), Other (Left foot flattened arch with dry callused ulcer under 4th metatarsal, necrotic skin on 3rd toe tip , no exposed bone.) Edema: Yes Edema: LLE: 3+ (non-pitting) Peripheral Pulses WNL: No (diminished pedal pulses bilaterally) Labs: CBC, BMP 06/27/18 06:00 06/27/18 06:00 Problem List - Problems (1) Diabetic peripheral vascular disease Code(s): E11.51 - TYPE 2 DIABETES W DIABETIC PERIPHERAL ANGIOPATH W/O GANGRENE (2) Diabetic foot ulcer Assessment/Plan: Diminished pedal pulses with arterial calcification on foot x-ray suggest at least moderate PAD. Will evaluate with Arterial Duplex and PVR. Code(s): E11.621 - TYPE 2 DIABETES MELLITUS WITH FOOT ULCER; L97.509 - NON- PRESSURE CHRONIC ULCER OTH PRT UNSP FOOT W UNSP SEVERITY Qualifiers: Diabetic foot ulcer location: toe Diabetes mellitus type: type 2 Laterality: left Non-pressure ulcer stage: with fat layer exposed Qualified Code(s): E11.621 - Type 2 diabetes mellitus with foot ulcer; L97.522 - Non- pressure chronic ulcer of other part of left foot with fat layer exposed
[2018-06-28] MEDS ORDERED: PT OWN MED DRAWER 7, Y5N ONE (09:10)
[2018-06-28] MEDS: ERTAPENEM SODIUM 1 GM in SODIUM CHLORIDE 50 ML IVPB SCH (09:42)
[2018-06-28] MEDS: PANTOPRAZOLE 20 MG TABLET (FP) PO SCH (09:42)
[2018-06-28] MEDS: ENOXAPARIN NA (PORCINE) 40 MG/0.4 ML DISP.SYRIN SQ SCH (09:42)
--- NOTE | 2018-06-28 11:08 | EKG ---
Test Reason : Blood Pressure : / mmHG Vent. Rate : 082 BPM Atrial Rate : 082 BPM P-R Int : 188 ms QRS Dur : 120 ms QT Int : 374 ms P-R-T Axes : 052 -18 010 degrees QTc Int : 436 ms NORMAL SINUS RHYTHM LOW VOLTAGE QRS RIGHT BUNDLE BRANCH BLOCK ABNORMAL ECG WHEN COMPARED WITH ECG OF 06-DEC-2017 13:16, RIGHT BUNDLE BRANCH BLOCK IS NOW PRESENT Confirmed by FRED LUNDBERG, PAOLO ([id number]) on 06/28/2018 11:07:46 AM Referred By: Confirmed By:PAOLO IBARRA MD
--- NOTE | 2018-06-28 13:27 | PN ---
Progress Note (short form) - Note Progress Note: Patient seen in bed. Has not had MRI yet. improved cellulitis, +improving wound 3rd toe left pvd cellulitis r/o om grade 1 wound Read and appreciated vascular consult note. Will await MRI results. Continue betadine dressing change. Problem List - Problems (1) Diabetic foot ulcer Code(s): E11.621 - TYPE 2 DIABETES MELLITUS WITH FOOT ULCER; L97.509 - NON- PRESSURE CHRONIC ULCER OTH PRT UNSP FOOT W UNSP SEVERITY Qualifiers: Diabetic foot ulcer location: toe Diabetes mellitus type: type 2 Laterality: left Non-pressure ulcer stage: with fat layer exposed Qualified Code(s): E11.621 - Type 2 diabetes mellitus with foot ulcer; L97.522 - Non- pressure chronic ulcer of other part of left foot with fat layer exposed
--- NOTE | 2018-06-28 14:06 | PN ---
Progress Note, Physician History of Present Illness: stable awaiting mri results - Current Medication List Current Medications: Active Medications Enoxaparin Sodium (Lovenox -) 40 mg SQ DAILY [facility] Last Admin: 06/28/18 09:42 Dose: 40 mg Ertapenem 1 gm/ Sodium (Chloride) 50 mls @ 50 mls/hr IVPB DAILY [facility]; Protocol Last Admin: 06/28/18 09:42 Dose: 50 mls/hr Insulin Aspart (Novolog Vial Sliding Scale -) 1 vial SQ TIDAC [facility]; Protocol Last Admin: 06/28/18 12:25 Dose: 2 units Insulin Detemir (Levemir Vial) 15 units SQ HS [facility] Pantoprazole Sodium (Protonix -) 20 mg PO DAILY [facility] Last Admin: 06/28/18 09:42 Dose: 20 mg - Objective Vital Signs: Vital Signs Temperature 97.7 F 06/28/18 06:00 Pulse Rate 75 06/28/18 06:00 Respiratory Rate 18 06/28/18 06:00 Blood Pressure 112/58 L 06/28/18 06:00 O2 Sat by Pulse Oximetry (%) 99 06/26/18 17:25 Constitutional: Yes: No Distress, Calm Cardiovascular: Yes: Regular Rate and Rhythm Respiratory: Yes: Regular, CTA Bilaterally Gastrointestinal: Yes: Normal Bowel Sounds, Soft Musculoskeletal: Yes: WNL Extremities: Yes: Other Wound/Incision: Yes: Dressing Dry and Intact Neurological: Yes: Alert, Oriented Psychiatric: Yes: Alert, Oriented Labs: CBC, BMP 06/27/18 06:00 06/27/18 06:00 INR, PTT INR 1.01 (0.83-1.09) 06/26/18 18:20 Assessment/Plan obesity onchomycosis r/o osteo left 3rd toe cellulitis plan' continue invanz monitor await for podiatry team evaluation wound care awaiting for mri
--- NOTE | 2018-06-28 14:33 | PN ---
Teaching Attending Note Name of Resident: Echo Fernandez ATTENDING PHYSICIAN STATEMENT I saw and evaluated the patient. I reviewed the resident's note and discussed the case with the resident. I agree with the resident's findings and plan as documented. SUBJECTIVE: No fever chills, No abd apin , no SOB , NO CP. NO pain in his foot. ambulating to bathroom OBJECTIVE: NAD Cv: RRR Lungs: CTAB Ext: deformed atrophic R LE . L leg with no edema or erythema. callus with ulcer on plantar aspect of L third toe with no drainage expressed. A/P This is a 52 yo M with PMH of IDDM, osteomyelitis of L 3rd toe, and R hip dysplasia, who presented with L 3rd toe non healing ulcer. 1- L 3rd toe non healing ulcer with infection. suspicion for OM especially that it was seen on MRI last admission ( treated medically ) - cont ertapenem - wound cx reviewed ( proteus , MSSA and group D ) - MRI pending - Arterial doppler and PVR 2- DM: - levemir ( at lower dose ) and SSI 3- DVT px
[2018-06-28] MEDS ORDERED: MAGNESIUM SULF 50% (8.12 MEQ/2 ML-1 GM VIAL) IVPB ONE (15:00)
--- NOTE | 2018-06-28 15:58 | PN ---
Physical Exam: SUBJECTIVE: Patient seen and examined this morning with no new complaints and no acute overnight events. Denies fevers, chills, chest pain, SOB, nausea, vomiting, diarrhea, constipation. OBJECTIVE: Vital Signs Period Temp Pulse Resp BP Sys/Cruz Pulse Ox Last 24 Hr 97.7 F-98.9 F 75-79 18-20 112-142/58-81 GENERAL: A&Ox3, NAD HEAD: NCAT EYES: PERRLA, EOMI THROAT: Oropharynx clear without exudates. Moist mucous membranes. NECK: No JVD LUNGS: Breath sounds equal, clear to auscultation bilaterally. No wheezes. HEART: Regular rate and rhythm, normal S1 and S2 without murmur. ABDOMEN: Obese, Soft, nontender, not distended, + bowel sounds, no guarding. MUSCULOSKELETAL: No CVA tenderness. RIGHT LOWER EXTREMITY: Prosthetic leg placed over the RLE. chronic mid lovell discoloration, Decreased length compared to Left, overgrown toe nails LEFT LOWER EXTREMITY: Left lower extremity with 2+ edema. Left 3rd toe callus with ulcer over the plantar and lateral aspect that had slight purulent discharge. No calf tenderness. NEUROLOGICAL: Cranial nerves II-XII intact. Normal speech. PSYCHIATRIC: Cooperative. Good eye contact. Appropriate mood and affect. Laboratory Results - last 24 hr 06/27/18 06/27/18 06/28/18 17:17 21:41 06:17 POC Glucometer 145 172 122 Magnesium 06/28/18 06/28/18 08:40 11:56 POC Glucometer 185 Magnesium 1.4 L Microbiology 06/27/18 14:23 Cellulitis Gram Stain - Final 06/27/18 14:23 Cellulitis Wound Culture - Preliminary Proteus Species Presumptive Mssa (Pbp2a Neg) Group D Strep Or Entero Coccus 06/26/18 18:10 Blood - Peripheral Venous Blood Culture - Preliminary NO GROWTH OBTAINED AFTER 24 HOURS, INCUBATION TO CONTINUE FOR 4 DAYS. 06/26/18 18:10 Blood - Peripheral Venous Blood Culture - Preliminary NO GROWTH OBTAINED AFTER 24 HOURS, INCUBATION TO CONTINUE FOR 4 DAYS. Active Medications Enoxaparin Sodium (Lovenox -) 40 mg SQ DAILY [facility] Last Admin: 06/28/18 09:42 Dose: 40 mg Ertapenem 1 gm/ Sodium (Chloride) 50 mls @ 50 mls/hr IVPB DAILY [facility]; Protocol Last Admin: 06/28/18 09:42 Dose: 50 mls/hr Insulin Aspart (Novolog Vial Sliding Scale -) 1 vial SQ TIDAC [facility]; Protocol Last Admin: 06/28/18 12:25 Dose: 2 units Insulin Detemir (Levemir Vial) 15 units SQ HS [facility] Pantoprazole Sodium (Protonix -) 20 mg PO DAILY [facility] Last Admin: 06/28/18 09:42 Dose: 20 mg IMAGING: -CXR: No acute pathology. No significant change. -Foot XRay: Imaging reveals bunion formation by the first MTP joint, arthritic changes seen in the interphalangeal joint of the great toe as well as in the other toes. There is calcaneal spurring. There are vascular calcifications. There is some swelling. An acute process is not seen. If symptoms persist, further imaging may be of help. If one is concerned about osteomyelitis, three- phase bone scan or MR may be of help a discrete site is difficult to delineate. ASSESSMENT/PLAN: 53 y/o M with PMHx of Right hip dysplasia with Right foot prosthetic, IDDM, Osteomyelitis and GERD presents to [facility] with a left 3rd toe wound. 1. Left 3rd toe wound -Likely due to diabetic foot ulcer -ID (Dr. Doran) consulted, Appreciate Rec's -Podiatry (Dr. Marti) consulted, Appreciate Rec's -Continue Ertopenem (Started on 06/26) -Left -Foot XRay: An acute process is not seen. If one is concerned about osteomyelitis, three-phase bone scan or MR may be of help a discrete site is difficult to delineate. -Wound culture: Proteus Species, Presumptive Mssa, Group D Strep Or Entero Coccus -Vascular surgery (Dr. Lebron) consulted, Appreciate rec's, Arterial Duplex and PVR. -MRI Lower extremity pending 2. IDDM -Hold Home dose metformin -ISS BGMs ACHS -Levemir 15 units HS 3. FEN -PO Fluids -Lytes wnl -Diabetic diet 4. PPx -DVT: Lovenox Dispo: Inpatient med-surg, Visit type - Emergency Visit Emergency Visit: Yes ED Registration Date: 06/26/18 Care time: The patient presented to the Emergency Department on the above date and was hospitalized for further evaluation of their emergent condition. - New Patient This patient is new to me today: No - Critical Care Critical Care patient: No
[2018-06-28] MEDS ORDERED: INSULIN (LEVEMIR) 100 UNITS/ML UNITS SQ SCH (22:00)
[2018-06-29] MEDS: INSULIN SLIDING SCALE (NOVOLOG) 1 VIAL SQ SCH ×3 (06:51→17:28)
[2018-06-29 07:11] LABS: BASO % 0.9 % (0-2.0); EOS % 5.3 % (0-4.5); HEMATOCRIT 39.4 % (35.4-49); HEMOGLOBIN 13.1 GM/dL (11.7-16.9); LYMPH % 13.6 % (8-40); MCHC 33.3 g/dl (32.0-35.9); MEAN CELL VOLUME 87.2 fl (80-96); MEAN PLT VOLUME 8.3 fl (7.5-11.1); MONO % 11.8 % (3.8-10.2); NEUT % 68.4 % (42.8-82.8); PLATELET COUNT 146 K/MM3 (134-434); RBC 4.52 M/mm3 (4.00-5.60); RDW 12.6 % (11.9-15.9)
[2018-06-29 07:44] LABS: ALBUMIN 3.2 g/dl (3.4-5.0); ALK PHOS 102 U/L (45-117); ANION GAP 4 MMOL/L (8-16); BILIRUBIN,TOTAL 0.5 mg/dL (0.2-1); BLOOD UREA NITROGEN 19 mg/dL (7-18); CALCIUM 9.2 mg/dL (8.5-10.1); CHLORIDE 104 mmol/L (98-107); CO2 31 mmol/L (21-32); CREATININE 0.8 mg/dL (0.55-1.3); GLUCOSE,RANDOM 162 mg/dL (74-106); MAGNESIUM 1.7 mg/dL (1.8-2.4); PHOSPHOROUS 3.6 mg/dL (2.5-4.9); POTASSIUM 4.8 mmol/L (3.5-5.1); SGOT/AST 13 U/L (15-37); SGPT/ALT 19 U/L (13-61); SODIUM 139 mmol/L (136-145); TOT PROT 6.8 g/dl (6.4-8.2)
[2018-06-29] MEDS ORDERED: MAGNESIUM SULF 50% (8.12 MEQ/2 ML-1 GM VIAL) IVPB ONE (08:30)
[2018-06-29] MEDS ORDERED: PT OWN MED DRAWER 7, Y5N ONE (09:54)
--- NOTE | 2018-06-29 10:03 | PN ---
Progress Note (short form) - Note Progress Note: Arterial Duplex and PVR reviewed: no evidence for significant arterial insufficiency in either leg. OK to proceed with podiatric procedures. Problem List - Problems (1) Diabetic peripheral vascular disease Code(s): E11.51 - TYPE 2 DIABETES W DIABETIC PERIPHERAL ANGIOPATH W/O GANGRENE (2) Diabetic foot ulcer Code(s): E11.621 - TYPE 2 DIABETES MELLITUS WITH FOOT ULCER; L97.509 - NON- PRESSURE CHRONIC ULCER OTH PRT UNSP FOOT W UNSP SEVERITY Qualifiers: Diabetic foot ulcer location: toe Diabetes mellitus type: type 2 Laterality: left Non-pressure ulcer stage: with fat layer exposed Qualified Code(s): E11.621 - Type 2 diabetes mellitus with foot ulcer; L97.522 - Non- pressure chronic ulcer of other part of left foot with fat layer exposed
[2018-06-29] MEDS: ERTAPENEM SODIUM 1 GM in SODIUM CHLORIDE 50 ML IVPB SCH (10:30)
[2018-06-29] MEDS: PANTOPRAZOLE 20 MG TABLET (FP) PO SCH (10:30)
[2018-06-29] MEDS: ENOXAPARIN NA (PORCINE) 40 MG/0.4 ML DISP.SYRIN SQ SCH (10:30)
[2018-06-29] MEDS ORDERED: INSULIN (LEVEMIR) 100 UNITS/ML UNITS SQ SCH (11:01)
--- NOTE | 2018-06-29 12:11 | PN ---
Progress Note (short form) - Note Progress Note: Patient seen in bed. Has not had MRI yet. improved cellulitis, +improving wound 3rd toe left, wbc=5.0 pvd cellulitis r/o om grade 1 wound Awaiting MRI results. Continue betadine dressing change. will follow Problem List - Problems (1) Diabetic foot ulcer Code(s): E11.621 - TYPE 2 DIABETES MELLITUS WITH FOOT ULCER; L97.509 - NON- PRESSURE CHRONIC ULCER OTH PRT UNSP FOOT W UNSP SEVERITY Qualifiers: Diabetic foot ulcer location: toe Diabetes mellitus type: type 2 Laterality: left Non-pressure ulcer stage: with fat layer exposed Qualified Code(s): E11.621 - Type 2 diabetes mellitus with foot ulcer; L97.522 - Non- pressure chronic ulcer of other part of left foot with fat layer exposed
--- NOTE | 2018-06-29 14:34 | PN ---
Progress Note, Physician History of Present Illness: stable awaiting for mri - Current Medication List Current Medications: Active Medications Enoxaparin Sodium (Lovenox -) 40 mg SQ DAILY [facility] Last Admin: 06/29/18 10:30 Dose: 40 mg Ertapenem 1 gm/ Sodium (Chloride) 50 mls @ 50 mls/hr IVPB [facility]ILY [facility]; Protocol Last Admin: 06/29/18 10:30 Dose: 50 mls/hr Insulin Aspart (Novolog Vial Sliding Scale -) 1 vial SQ TIDAC [facility]; Protocol Last Admin: 06/29/18 13:35 Dose: 2 units Insulin Detemir (Levemir Vial) 10 units SQ HS [facility] Pantoprazole Sodium (Protonix -) 20 mg PO DAILY [facility] Last Admin: 06/29/18 10:30 Dose: 20 mg - Objective Vital Signs: Vital Signs Temperature 98 F 06/29/18 05:57 Pulse Rate 71 06/29/18 05:57 Respiratory Rate 18 06/29/18 05:57 Blood Pressure 126/72 06/29/18 05:57 O2 Sat by Pulse Oximetry (%) 99 06/26/18 17:25 Constitutional: Yes: No Distress, Calm Cardiovascular: Yes: Regular Rate and Rhythm Respiratory: Yes: Regular, CTA Bilaterally Gastrointestinal: Yes: Normal Bowel Sounds, Soft Musculoskeletal: Yes: WNL Extremities: Yes: Other Wound/Incision: Yes: Clean/Dry, Open to air Neurological: Yes: Alert, Oriented Psychiatric: Yes: Alert, Oriented Labs: CBC, BMP 06/29/18 06:45 06/29/18 06:45 INR, PTT INR 1.01 (0.83-1.09) 06/26/18 18:20 Assessment/Plan obesity onchomycosis r/o osteo left 3rd toe cellulitis plan' continue invanz monitor await for podiatry team evaluation wound care awaiting for mri
--- NOTE | 2018-06-29 18:47 | PN ---
Teaching Attending Note Name of Resident: Michael Leon ATTENDING PHYSICIAN STATEMENT I saw and evaluated the patient. I reviewed the resident's note and discussed the case with the resident. I agree with the resident's findings and plan as documented. SUBJECTIVE: No fever or chills. No abd pain. no SOB , no CP OBJECTIVE: NAD Cv: RRR Lungs: CTAB Ext: deformed atrophic R LE . L leg with no edema or erythema. callus with ulcer on plantar aspect of L third toe with no drainage expressed. A/P This is a 52 yo M with PMH of IDDM, osteomyelitis of L 3rd toe, and R hip dysplasia, who presented with L 3rd toe non healing ulcer. 1- L 3rd toe non healing ulcer with infection. suspicion for OM - cont ertapenem - wound cx latest update reviewed. - vascular input noted - surgical decision is pending MRI 2- DM: -fasting sugar is still acceptable, with no hypoglycemia . cont 15 units of levemir at HS - cont SSI TIDAC 3- DVT px
--- NOTE | 2018-06-29 20:12 | PN ---
Physical Exam: SUBJECTIVE: Patient seen and examined this morning. No new complaints. No acute overnight events. OBJECTIVE: Vital Signs Period Temp Pulse Resp BP Sys/Cruz Pulse Ox Last 24 Hr 98 F-98.5 F 71-77 -18 120-132/72-79 GENERAL: A&Ox3, NAD HEAD: NCAT EYES: PERRLA, EOMI THROAT: Oropharynx clear without exudates. Moist mucous membranes. NECK: No JVD LUNGS: Breath sounds equal, clear to auscultation bilaterally. No wheezes. HEART: Regular rate and rhythm, normal S1 and S2 without murmur. ABDOMEN: Obese, Soft, nontender, not distended, + bowel sounds, no guarding. MUSCULOSKELETAL: No CVA tenderness. RIGHT LOWER EXTREMITY: Prosthetic leg placed over the RLE. chronic mid lovell discoloration, Decreased length compared to Left, overgrown toe nails LEFT LOWER EXTREMITY: Left lower extremity with 2+ edema. Left 3rd toe callus with ulcer over the plantar and lateral aspect that had minimal purulent discharge. No calf tenderness. NEUROLOGICAL: Cranial nerves II-XII intact. Normal speech. Laboratory Results - last 24 hr 06/28/18 06/29/18 06/29/18 23:03 06:45 06:45 WBC 5.0 RBC 4.52 Hgb 13.1 Hct 39.4 MCV 87.2 MCH 29.0 MCHC 33.3 RDW 12.6 Plt Count 146 MPV 8.3 Absolute Neuts (auto) 3.4 Neutrophils % 68.4 Lymphocytes % 13.6 Monocytes % 11.8 H Eosinophils % 5.3 H Basophils % 0.9 Nucleated RBC % 0 Sodium 139 Potassium 4.8 Chloride 104 Carbon Dioxide 31 Anion Gap 4 L BUN 19 H Creatinine 0.8 Creat Clearance w eGFR > 60 POC Glucometer 134 Random Glucose 162 H Calcium 9.2 Phosphorus 3.6 Magnesium 1.7 L Total Bilirubin 0.5 AST 13 L ALT 19 Alkaline Phosphatase 102 Total Protein 6.8 Albumin 3.2 L Microbiology 06/26/18 18:10 Blood - Peripheral Venous Blood Culture - Preliminary NO GROWTH OBTAINED AFTER 72 HOURS, INCUBATION TO CONTINUE FOR 2 DAYS. 06/26/18 18:10 Blood - Peripheral Venous Blood Culture - Preliminary NO GROWTH OBTAINED AFTER 72 HOURS, INCUBATION TO CONTINUE FOR 2 DAYS. 06/27/18 14:23 Cellulitis Gram Stain - Final 06/27/18 14:23 Cellulitis Wound Culture - Preliminary Proteus Mirabilis Staphylococcus Aureus Group D Strep Or Entero Coccus Lactose Fermenting Neg Bacilli Active Medications Enoxaparin Sodium (Lovenox -) 40 mg SQ DAILY [facility] Last Admin: 06/29/18 10:30 Dose: 40 mg Ertapenem 1 gm/ Sodium (Chloride) 50 mls @ 50 mls/hr IVPB DAILY [facility]; Protocol Last Admin: 06/29/18 10:30 Dose: 50 mls/hr Insulin Aspart (Novolog Vial Sliding Scale -) 1 vial SQ TIDAC [facility]; Protocol Last Admin: 06/29/18 17:28 Dose: 2 units Insulin Detemir (Levemir Vial) 15 units SQ HS [facility] Pantoprazole Sodium (Protonix -) 20 mg PO DAILY [facility] Last Admin: 06/29/18 10:30 Dose: 20 mg IMAGING: -CXR: No acute pathology. No significant change. -Foot XRay: Imaging reveals bunion formation by the first MTP joint, arthritic changes seen in the interphalangeal joint of the great toe as well as in the other toes. There is calcaneal spurring. There are vascular calcifications. There is some swelling. An acute process is not seen. If symptoms persist, further imaging may be of help. If one is concerned about osteomyelitis, three- phase bone scan or MR may be of help a discrete site is difficult to delineate. -DUPLEX: Mild atherosclerotic disease with no evidence of occlusions or hemodynamically significant stenoses. ASSESSMENT/PLAN: 53 y/o M with PMHx of Right hip dysplasia with Right foot prosthetic, IDDM, Osteomyelitis and GERD presents to [facility] with a left 3rd toe wound. 1. Left 3rd toe wound -Likely due to diabetic foot ulcer -ID (Dr. Doran) consulted, Appreciate Rec's -Podiatry (Dr. Marti) consulted, Appreciate Rec's -Continue Ertopenem (Started on 06/26) -Left -Foot XRay: An acute process is not seen. If one is concerned about osteomyelitis, three-phase bone scan or MR may be of help a discrete site is difficult to delineate. -Wound culture: Proteus Mirabilis, Staphylococcus Aureus, Group D Strep Or Entero Coccus, Lactose Fermenting Neg Bacilli -Vascular surgery (Dr. Lebron) consulted, Appreciate rec's, no evidence for significant arterial insufficiency in either leg. OK to proceed with podiatric procedures. -MRI Lower extremity pending 2. IDDM -Hold Home dose metformin -ISS BGMs ACHS -Levemir 15 units HS 3. FEN -PO Fluids -Lytes wnl -Diabetic diet 4. PPx -DVT: Lovenox Dispo: Inpatient med-surg Visit type - Emergency Visit Emergency Visit: Yes ED Registration Date: 06/26/18 Care time: The patient presented to the Emergency Department on the above date and was hospitalized for further evaluation of their emergent condition. - New Patient This patient is new to me today: No - Critical Care Critical Care patient: No
[2018-06-29] MEDS ORDERED: INSULIN (NOVOLOG) ASPART 100 UNITS/ML 10ML VIAL ONE (20:40)
[2018-06-29] MEDS: INSULIN (LEVEMIR) 100 UNITS/ML UNITS SQ SCH (21:29)
[2018-06-30] MEDS: INSULIN SLIDING SCALE (NOVOLOG) 1 VIAL SQ SCH ×3 (06:49→18:28)
[2018-06-30] MEDS: ENOXAPARIN NA (PORCINE) 40 MG/0.4 ML DISP.SYRIN SQ SCH (10:43)
[2018-06-30] MEDS: ERTAPENEM SODIUM 1 GM in SODIUM CHLORIDE 50 ML IVPB SCH (10:43)
[2018-06-30] MEDS: PANTOPRAZOLE 20 MG TABLET (FP) PO SCH (10:44)
--- NOTE | 2018-06-30 13:37 | PN ---
Teaching Attending Note Name of Resident: Niru Salinas ATTENDING PHYSICIAN STATEMENT I saw and evaluated the patient. I reviewed the resident's note and discussed the case with the resident. I agree with the resident's findings and plan as documented. SUBJECTIVE: Patient is comfortable with no acute distress. OBJECTIVE: Vital Signs Temperature 97.8 F 06/30/18 05:58 Pulse Rate 83 06/30/18 05:58 Respiratory Rate 18 06/30/18 05:58 Blood Pressure 105/60 06/30/18 05:58 O2 Sat by Pulse Oximetry (%) 99 06/26/18 17:25 NAD Cv: RRR Lungs: CTAB Abdomen: Soft, NT Ext: deformed atrophic R LE . L leg with no edema or erythema. callus with ulcer on plantar aspect of L third toe with no drainage expressed. CBCD WBC 5.0 K/mm3 (4.0-10.0) 06/29/18 06:45 RBC 4.52 M/mm3 (4.00-5.60) 06/29/18 06:45 Hgb 13.1 GM/dL (11.7-16.9) 06/29/18 06:45 Hct 39.4 % (35.4-49) 06/29/18 06:45 MCV 87.2 fl (80-96) 06/29/18 06:45 MCHC 33.3 g/dl (32.0-35.9) 06/29/18 06:45 RDW 12.6 % (11.9-15.9) 06/29/18 06:45 Plt Count 146 K/MM3 (134-434) 06/29/18 06:45 MPV 8.3 fl (7.5-11.1) 06/29/18 06:45 CMP Sodium 139 mmol/L (136-145) 06/29/18 06:45 Potassium 4.8 mmol/L (3.5-5.1) 06/29/18 06:45 Chloride 104 mmol/L (98-107) 06/29/18 06:45 Carbon Dioxide 31 mmol/L (21-32) 06/29/18 06:45 Anion Gap 4 MMOL/L (8-16) L 06/29/18 06:45 BUN 19 mg/dL (7-18) H 06/29/18 06:45 Creatinine 0.8 mg/dL (0.55-1.3) 06/29/18 06:45 Creat Clearance w eGFR > 60 (>60) 06/29/18 06:45 Random Glucose 162 mg/dL (74-106) H 06/29/18 06:45 Calcium 9.2 mg/dL (8.5-10.1) 06/29/18 06:45 Total Bilirubin 0.5 mg/dL (0.2-1) 06/29/18 06:45 AST 13 U/L (15-37) L 06/29/18 06:45 ALT 19 U/L (13-61) 06/29/18 06:45 Alkaline Phosphatase 102 U/L (45-117) 06/29/18 06:45 Total Protein 6.8 g/dl (6.4-8.2) 06/29/18 06:45 Albumin 3.2 g/dl (3.4-5.0) L 06/29/18 06:45 Current Medications Generic Name Dose Route Start Last Admin Trade Name Garth PRN Reason Stop Dose Admin Enoxaparin Sodium 40 mg 06/27/18 10:00 06/30/18 10:43 Lovenox - SQ 40 mg DAILY [facility] Administration Ertapenem 1 gm/ Sodium 50 mls @ 50 mls/hr 06/27/18 10:00 06/30/18 10:43 Chloride IVPB 50 mls/hr DAILY [facility] Administration Protocol Insulin Aspart 1 vial 06/28/18 06:21 06/30/18 06:49 Novolog Vial Sliding Scale - SQ Not Given TIDAC [facility] Protocol Insulin Detemir 15 units 06/29/18 22:00 06/29/18 21:29 Levemir Vial SQ 15 units HS [facility] Administration Pantoprazole Sodium 20 mg 06/28/18 10:00 06/30/18 10:44 Protonix - PO 20 mg DAILY [facility] Administration Home Medications Medication Instructions Recorded Ergocalciferol (Vitamin D2) 2,000 unit PO DAILY 12/06/17 [Vitamin D2] Multivitamin [One Daily] 1 each PO DAILY 12/06/17 [place]-3S/Dha/Epa/Fish Oil [Fish 1 each PO DAILY 12/06/17 Oil 1,200 mg Softgel] Omeprazole 40 mg PO DAILY 12/06/17 metFORMIN HCL [Glucophage -] 500 mg PO BID 12/06/17 Insulin Aspart [Novolog Flexpen] 8 unit SQ AC PRN 06/26/18 Insulin (Levemir) [Levemir Vial] 20 unit SQ HS 06/27/18 ASSESSMENT AND PLAN: This is a 52 yo M with PMHx of IDDM, osteomyelitis of L 3rd toe, and R hip dysplasia, who presented with L 3rd toe non healing ulcer. # Left 3rd toe non healing ulcer with infection. positive for OM for MRI, on IV ertapenem. #T2DM: cont 15 units of levemir at HS , cont SSI TIDAC DVT px: Lovenox
--- NOTE | 2018-06-30 13:41 | PN ---
Progress Note (short form) - Note Progress Note: Patient seen in bed. Had MRI. improved cellulitis, +improving wound 3rd toe left, wbc=5.0 pvd cellulitis om Continue betadine dressing change. Abx as per ID. Awaiting PICC line. Patient wants to go to [facility]. Claustrophobic. Discussed use of xanax. Agreed to try it. [facility] consult ordered. Discussed with Melyssa Graves in [facility]. Patient refused last time. will follow. Problem List - Problems (1) Diabetic foot ulcer Code(s): E11.621 - TYPE 2 DIABETES MELLITUS WITH FOOT ULCER; L97.509 - NON- PRESSURE CHRONIC ULCER OTH PRT UNSP FOOT W UNSP SEVERITY Qualifiers: Diabetic foot ulcer location: toe Diabetes mellitus type: type 2 Laterality: left Non-pressure ulcer stage: with fat layer exposed Qualified Code(s): E11.621 - Type 2 diabetes mellitus with foot ulcer; L97.522 - Non- pressure chronic ulcer of other part of left foot with fat layer exposed
--- NOTE | 2018-06-30 13:50 | PN ---
Physical Exam: SUBJECTIVE: Patient seen and examined this morning. No new complaints. No acute overnight events. Denies fevers, chills, chest pain, SOB. OBJECTIVE: Vital Signs Period Temp Pulse Resp BP Sys/Curz Pulse Ox Last 24 Hr 97.7 F-98.5 F 74-83 18-18 105-140/60-79 GENERAL: A&Ox3, NAD HEAD: NCAT EYES: PERRLA, EOMI THROAT: Oropharynx clear without exudates. Moist mucous membranes. NECK: No JVD LUNGS: Breath sounds equal, clear to auscultation bilaterally. No wheezes. HEART: Regular rate and rhythm, normal S1 and S2 without murmur. ABDOMEN: Obese, Soft, nontender, not distended, + bowel sounds, no guarding. MUSCULOSKELETAL: No CVA tenderness. RIGHT LOWER EXTREMITY: Prosthetic leg placed over the RLE. chronic mid lovell discoloration, Decreased length compared to Left, overgrown toe nails LEFT LOWER EXTREMITY: Left lower extremity with 2+ edema. Left 3rd toe callus with ulcer over the plantar and lateral aspect that had no purulent discharge. No calf tenderness. NEUROLOGICAL: Cranial nerves II-XII intact. Normal speech. Laboratory Results - last 24 hr 06/29/18 06/29/18 06/30/18 17:20 21:28 06:48 POC Glucometer 157 172 148 Microbiology 06/27/18 14:23 Cellulitis Gram Stain - Final 06/27/18 14:23 Cellulitis Wound Culture - Final Proteus Mirabilis Staphylococcus Aureus Enterococcus Faecalis Escherichia Coli 06/26/18 18:10 Blood - Peripheral Venous Blood Culture - Preliminary NO GROWTH OBTAINED AFTER 72 HOURS, INCUBATION TO CONTINUE FOR 2 DAYS. 06/26/18 18:10 Blood - Peripheral Venous Blood Culture - Preliminary NO GROWTH OBTAINED AFTER 72 HOURS, INCUBATION TO CONTINUE FOR 2 DAYS. Active Medications Enoxaparin Sodium (Lovenox -) 40 mg SQ DAILY [facility] Last Admin: 06/30/18 10:43 Dose: 40 mg Ertapenem 1 gm/ Sodium (Chloride) 50 mls @ 50 mls/hr IVPB DAILY [facility]; Protocol Last Admin: 06/30/18 10:43 Dose: 50 mls/hr Insulin Aspart (Novolog Vial Sliding Scale -) 1 vial SQ TIDAC [facility]; Protocol Last Admin: 06/30/18 06:49 Dose: Not Given Insulin Detemir (Levemir Vial) 15 units SQ HS [facility] Last Admin: 06/29/18 21:29 Dose: 15 units Pantoprazole Sodium (Protonix -) 20 mg PO DAILY [facility] Last Admin: 06/30/18 10:44 Dose: 20 mg IMAGING: -CXR: No acute pathology. No significant change. -Foot XRay: Imaging reveals bunion formation by the first MTP joint, arthritic changes seen in the interphalangeal joint of the great toe as well as in the other toes. There is calcaneal spurring. There are vascular calcifications. There is some swelling. An acute process is not seen. If symptoms persist, further imaging may be of help. If one is concerned about osteomyelitis, three- phase bone scan or MR may be of help a discrete site is difficult to delineate. -DUPLEX: Mild atherosclerotic disease with no evidence of occlusions or hemodynamically significant stenoses. -MRI Lower extremity: Subcutaneous soft tissue edema of the foot and question of open wound at the dorsal aspect of the third toe distal phalanx. Bone marrow edema of the distal phalanx of the third toe consistent with osteomyelitis. ASSESSMENT/PLAN: 53 y/o M with PMHx of Right hip dysplasia with Right foot prosthetic, IDDM, Osteomyelitis and GERD presents to [facility] with a left 3rd toe wound. 1. Left 3rd toe Osteomyelitis -Likely due to diabetic foot ulcer -MRI Lower extremity: Bone marrow edema of the distal phalanx of the third toe consistent with osteomyelitis. -ID (Dr. Doran) consulted, Appreciate Rec's -Podiatry (Dr. Marti) consulted, Appreciate Rec's -Continue Ertopenem (Started on 06/26) -Wound culture: Proteus Mirabilis, Staphylococcus Aureus, Enterococcus Faecalis , Escherichia Coli -Vascular surgery (Dr. Lebron) consulted, Appreciate rec's, no evidence for significant arterial insufficiency in either leg. OK to proceed with podiatric procedures. 2. IDDM -Hold Home dose metformin -ISS BGMs ACHS -Levemir 15 units HS 3. FEN -PO Fluids -Lytes wnl -Diabetic diet 4. PPx -DVT: Lovenox Dispo: Inpatient med-surg Visit type - Emergency Visit Emergency Visit: Yes ED Registration Date: 06/26/18 Care time: The patient presented to the Emergency Department on the above date and was hospitalized for further evaluation of their emergent condition. - New Patient This patient is new to me today: No - Critical Care Critical Care patient: No - Discharge Referral Referred to [facility] Med P.C.: No
[2018-06-30] MEDS ORDERED: PICC LINE 8 ML FLUSH PROTOCOL IVPUSH PRN (14:14)
[2018-06-30] MEDS: VANCOMYCIN 1,250 MG in DEXTROSE 5%-WATER - 250 ML IVPB SCH (18:25)
[2018-06-30] MEDS ORDERED: INSULIN (NOVOLOG) ASPART 100 UNITS/ML 10ML VIAL ONE (18:26)
[2018-06-30] MEDS: INSULIN (LEVEMIR) 100 UNITS/ML UNITS SQ SCH (22:39)
[2018-07-01] MEDS: INSULIN SLIDING SCALE (NOVOLOG) 1 VIAL SQ SCH ×3 (06:30→16:38)
[2018-07-01] MEDS: PANTOPRAZOLE 20 MG TABLET (FP) PO SCH (09:32)
[2018-07-01] MEDS: ERTAPENEM SODIUM 1 GM in SODIUM CHLORIDE 50 ML IVPB SCH (09:32)
--- NOTE | 2018-07-01 13:30 | PN ---
Progress Note, Physician History of Present Illness: doing well no issues mri results noted - Current Medication List Current Medications: Active Medications Enoxaparin Sodium (Lovenox -) 40 mg SQ DAILY [facility] Last Admin: 06/30/18 10:43 Dose: 40 mg IV Flush (Picc Line Flush) 8 ml IVPUSH PRN PRN PRN Reason: Protocol Ertapenem 1 gm/ Sodium (Chloride) 50 mls @ 50 mls/hr IVPB DAILY [facility]; Protocol Last Admin: 07/01/18 09:32 Dose: 50 mls/hr Vancomycin HCl 1,250 mg/ (Dextrose) 250 mls @ 250 mls/2 hr IVPB Q24H [facility]; Protocol Last Admin: 06/30/18 18:25 Dose: 250 mls/2 hr Insulin Aspart (Novolog Vial Sliding Scale -) 1 vial SQ TIDAC [facility]; Protocol Last Admin: 07/01/18 12:00 Dose: 2 units Insulin Detemir (Levemir Vial) 15 units SQ HS [facility] Last Admin: 06/30/18 22:39 Dose: 15 units Pantoprazole Sodium (Protonix -) 20 mg PO DAILY [facility] Last Admin: 07/01/18 09:32 Dose: 20 mg - Objective Vital Signs: Vital Signs Temperature 97.5 F L 07/01/18 09:00 Pulse Rate 72 07/01/18 09:00 Respiratory Rate 18 07/01/18 09:00 Blood Pressure 134/75 07/01/18 09:00 O2 Sat by Pulse Oximetry (%) 99 07/01/18 09:00 Constitutional: Yes: No Distress, Calm, Obese Cardiovascular: Yes: Regular Rate and Rhythm Respiratory: Yes: Regular, CTA Bilaterally Musculoskeletal: Yes: WNL Wound/Incision: Yes: Open to air Neurological: Yes: Alert, Oriented Labs: CBC, BMP 06/29/18 06:45 06/29/18 06:45 INR, PTT INR 1.01 (0.83-1.09) 06/26/18 18:20 Assessment/Plan obesity onchomycosis r/o osteo left 3rd toe cellulitis plan' continue invanz monitor all cx result noted will add vanco patient will need it for 5 weeks
--- NOTE | 2018-07-01 13:32 | PN ---
Progress Note, Physician History of Present Illness: doing well no complaints spoke with pharmacy stable - Current Medication List Current Medications: Active Medications Enoxaparin Sodium (Lovenox -) 40 mg SQ DAILY [facility] Last Admin: 06/30/18 10:43 Dose: 40 mg IV Flush (Picc Line Flush) 8 ml IVPUSH PRN PRN PRN Reason: Protocol Ertapenem 1 gm/ Sodium (Chloride) 50 mls @ 50 mls/hr IVPB DAILY [facility]; Protocol Last Admin: 07/01/18 09:32 Dose: 50 mls/hr Vancomycin HCl 1,250 mg/ (Dextrose) 250 mls @ 250 mls/2 hr IVPB Q24H [facility]; Protocol Last Admin: 06/30/18 18:25 Dose: 250 mls/2 hr Insulin Aspart (Novolog Vial Sliding Scale -) 1 vial SQ TIDAC [facility]; Protocol Last Admin: 07/01/18 12:00 Dose: 2 units Insulin Detemir (Levemir Vial) 15 units SQ HS [facility] Last Admin: 06/30/18 22:39 Dose: 15 units Pantoprazole Sodium (Protonix -) 20 mg PO DAILY [facility] Last Admin: 07/01/18 09:32 Dose: 20 mg - Objective Vital Signs: Vital Signs Temperature 97.5 F L 07/01/18 09:00 Pulse Rate 72 07/01/18 09:00 Respiratory Rate 18 07/01/18 09:00 Blood Pressure 134/75 07/01/18 09:00 O2 Sat by Pulse Oximetry (%) 99 07/01/18 09:00 Constitutional: Yes: No Distress, Calm Cardiovascular: Yes: Regular Rate and Rhythm Respiratory: Yes: Regular, CTA Bilaterally Gastrointestinal: Yes: Normal Bowel Sounds, Soft Musculoskeletal: Yes: WNL Extremities: Yes: WNL Wound/Incision: Yes: Well Approximated Neurological: Yes: Alert, Oriented Psychiatric: Yes: Alert, Oriented Labs: CBC, BMP 06/29/18 06:45 06/29/18 06:45 INR, PTT INR 1.01 (0.83-1.09) 06/26/18 18:20 Assessment/Plan obesity onchomycosis r/o osteo left 3rd toe cellulitis plan' continue both abx will need it for 5 weeks cbc esr cmp bmp weekly vanco trough before the 4th dose
[2018-07-01] MEDS: VANCOMYCIN 1,250 MG in DEXTROSE 5%-WATER - 250 ML IVPB SCH (16:19)
[2018-07-01 16:29] VITALS: BP 157/90; PULSE 77; TEMP 98.5
--- NOTE | 2018-07-01 16:42 | DS ---
Physical Exam: SUBJECTIVE: Patient seen and examined this morning at bedside. No new complaints. No acute overnight events. OBJECTIVE: Vital Signs Period Temp Pulse Resp BP Sys/Cruz Pulse Ox Last 24 Hr 97.5 F-98.5 F 72-77 18-20 122-157/73-90 99-99 PHYSICAL EXAM GENERAL: A&Ox3, NAD HEAD: NCAT EYES: PERRLA, EOMI THROAT: Oropharynx clear without exudates. Moist mucous membranes. NECK: No JVD LUNGS: Breath sounds equal, clear to auscultation bilaterally. No wheezes. HEART: Regular rate and rhythm, normal S1 and S2 without murmur. ABDOMEN: Obese, Soft, nontender, not distended, + bowel sounds, no guarding. MUSCULOSKELETAL: No CVA tenderness. RIGHT LOWER EXTREMITY: Prosthetic leg placed over the RLE. chronic mid lovell discoloration, Decreased length compared to Left, overgrown toe nails LEFT LOWER EXTREMITY: Left lower extremity with 2+ edema. Left 3rd toe callus with ulcer over the plantar and lateral aspect that had no purulent discharge. No calf tenderness. NEUROLOGICAL: Cranial nerves II-XII intact. Normal speech. LABS Laboratory Results - last 24 hr 06/30/18 07/01/18 07/01/18 16:49 06:11 11:35 POC Glucometer 189 195 170 Microbiology 06/26/18 18:10 Blood - Peripheral Venous Blood Culture - Final NO GROWTH AFTER 5 DAYS INCUBATION 06/26/18 18:10 Blood - Peripheral Venous Blood Culture - Final NO GROWTH AFTER 5 DAYS INCUBATION 06/27/18 14:23 Cellulitis Gram Stain - Final 06/27/18 14:23 Cellulitis Wound Culture - Final Proteus Mirabilis Staphylococcus Aureus Enterococcus Faecalis Escherichia Coli IMAGING: -CXR: No acute pathology. No significant change. -Foot XRay: Imaging reveals bunion formation by the first MTP joint, arthritic changes seen in the interphalangeal joint of the great toe as well as in the other toes. There is calcaneal spurring. There are vascular calcifications. There is some swelling. An acute process is not seen. If symptoms persist, further imaging may be of help. If one is concerned about osteomyelitis, three- phase bone scan or MR may be of help a discrete site is difficult to delineate. -DUPLEX: Mild atherosclerotic disease with no evidence of occlusions or hemodynamically significant stenoses. -MRI Lower extremity: Subcutaneous soft tissue edema of the foot and question of open wound at the dorsal aspect of the third toe distal phalanx. Bone marrow edema of the distal phalanx of the third toe consistent with osteomyelitis. HOSPITAL COURSE: Date of Admission:06/26/18 Date of Discharge: 07/01/18 53 y/o M with PMHx of Right hip dysplasia with Right foot prosthetic, IDDM, Osteomyelitis and GERD presented to [facility] with a left 3rd toe wound. Blood and wound cultures were drawn (Noted above) and patient was started on Empirically on Vancomycin and Ertopenem. ID, Podiatry and Vascular surgery were consulted. Arterial Duplex revealed Mild atherosclerotic disease. MRI of the lower extremity revealed Osteomyelitis of the distal phalanx of the third toe. Patient completed a 6 day course of Ertopenem and a 2 day course of Vancomycin. Patients home dose Metformin was held during his stay and high BG was controlled with ISS and his home dose Levemir. Metformin was restarted upon discharge. A PICC Line was placed and patient was discharged home with Vancomycin and Ertapenem to be continued for 5 weeks. He was given strict instructions to follow up with Dr. Marti and to have weekly labs drawn. Minutes to complete discharge: 45 Discharge Summary Reason For Visit: DIABETIC FOOT ULCER Current Active Problems Diabetic foot ulcer (Acute) Diabetic peripheral vascular disease (Acute) Osteomyelitis of foot, left, acute (Acute) NIDDY (non-insulin dependent diabetes mellitus in young) (Chronic) Condition: Stable - Instructions Diet, Activity, Other Instructions: You presented to the hospital with a wound over your left third toe. The wound culture was positive and the MRI revealed osteomyelitis. You completed a 6 day course of Antibiotics You are being discharged home with a PICC line. You will be on antibiotic, Vancomycin 1250mg Daily and Ertapenem 1g daily to be taken for 5 weeks. Please have the following weekly labs drawn: CMP, CBC, Mag, Phos, Random Vancomycin level Please follow up with Dr. Marti, your interactive digital media specialist in one week. Please follow up with your primary care physician in one week. Continue all your other medications as prescribed Please return to the ER if you have any signs or symptoms of chest pain, shortness of breath, uncontrollable fever, chills, nausea, vomiting, numbness, tingling, or weakness in any part of your body, changes in vision, or slurred speech. Please return to the ER if symptoms persist, worsen, or new symptoms arise. Referrals: Benjamin Javier MD [Primary Care Provider] - Ellis Marti DPM [Staff Physician] - Disposition: HOME - Home Medications Comprehensive Discharge Medication List: Ambulatory Orders Ergocalciferol (Vitamin D2) [Vitamin D2] 2,000 unit PO DAILY 12/06/17 Multivitamin [One Daily] 1 each PO DAILY 12/06/17 [place]-3S/Dha/Epa/Fish Oil [Fish Oil 1,200 mg Softgel] 1 each PO DAILY 12/06/17 Omeprazole 40 mg PO DAILY 12/06/17 metFORMIN HCL [Glucophage -] 500 mg PO BID 12/06/17 Insulin Aspart [Novolog Flexpen] 8 unit SQ AC PRN 06/26/18 Insulin (Levemir) [Levemir Vial] 20 unit SQ HS 06/27/18 Ertapenem Sodium [Invanz -] 1 gm IVPB DAILY #40 vial 07/01/18 Miscellaneous Medical Supply [Outpatient Order] 1 each [facility] WEEKLY #1 misc Vancomycin 1,250 mg IVPB Q24H #40 vial 07/01/18 This patient is new to me today: No Emergency Visit: Yes ED Registration Date: 06/26/18 Care time: The patient presented to the Emergency Department on the above date and was hospitalized for further evaluation of their emergent condition. Critical Care patient: No - Discharge Referral Referred to [facility] Med P.C.: No
[2018-07-01] MEDS ORDERED: INSULIN (LEVEMIR) 100 UNITS/ML UNITS SQ ONE (18:01)
[2018-07-01] MEDS ORDERED: INSULIN (NOVOLOG) ASPART 100 UNITS/ML 10ML VIAL ONE (18:01)
--- NOTE | 2018-07-01 21:11 | PN ---
Progress Note (short form) - Note Progress Note: Patient seen in bed around 4:30pm. Had MRI. improved cellulitis, +improving wound 3rd toe left, wbc=5.0 pvd cellulitis om Continue betadine dressing change. Abx as per ID. PICC line in place. Patient wants to go to [facility]. Patient can follow up in my office for wound care. Problem List - Problems (1) Diabetic foot ulcer Code(s): E11.621 - TYPE 2 DIABETES MELLITUS WITH FOOT ULCER; L97.509 - NON- PRESSURE CHRONIC ULCER OTH PRT UNSP FOOT W UNSP SEVERITY Qualifiers: Diabetic foot ulcer location: toe Diabetes mellitus type: type 2 Laterality: left Non-pressure ulcer stage: with fat layer exposed Qualified Code(s): E11.621 - Type 2 diabetes mellitus with foot ulcer; L97.522 - Non- pressure chronic ulcer of other part of left foot with fat layer exposed
--- NOTE | 2018-07-01 21:14 | PN ---
Teaching Attending Note Name of Resident: Niru Salinas ATTENDING PHYSICIAN STATEMENT I saw and evaluated the patient. I reviewed the resident's note and discussed the case with the resident. I agree with the resident's findings and plan as documented. SUBJECTIVE: Patient is comfortable with no acute distress. OBJECTIVE: Vital Signs Temperature 98.5 F 07/01/18 16:29 Pulse Rate 77 07/01/18 16:29 Respiratory Rate 20 07/01/18 16:29 Blood Pressure 157/90 07/01/18 16:29 O2 Sat by Pulse Oximetry (%) 99 07/01/18 09:00 NAD Cv: RRR Lungs: CTAB Abdomen: Soft, NT Ext: deformed atrophic R LE . L leg with no edema or erythema. callus with ulcer on plantar aspect of L third toe with no drainage expressed. CBCD WBC 5.0 K/mm3 (4.0-10.0) 06/29/18 06:45 RBC 4.52 M/mm3 (4.00-5.60) 06/29/18 06:45 Hgb 13.1 GM/dL (11.7-16.9) 06/29/18 06:45 Hct 39.4 % (35.4-49) 06/29/18 06:45 MCV 87.2 fl (80-96) 06/29/18 06:45 MCHC 33.3 g/dl (32.0-35.9) 06/29/18 06:45 RDW 12.6 % (11.9-15.9) 06/29/18 06:45 Plt Count 146 K/MM3 (134-434) 06/29/18 06:45 MPV 8.3 fl (7.5-11.1) 06/29/18 06:45 CMP Sodium 139 mmol/L (136-145) 06/29/18 06:45 Potassium 4.8 mmol/L (3.5-5.1) 06/29/18 06:45 Chloride 104 mmol/L (98-107) 06/29/18 06:45 Carbon Dioxide 31 mmol/L (21-32) 06/29/18 06:45 Anion Gap 4 MMOL/L (8-16) L 06/29/18 06:45 BUN 19 mg/dL (7-18) H 06/29/18 06:45 Creatinine 0.8 mg/dL (0.55-1.3) 06/29/18 06:45 Creat Clearance w eGFR > 60 (>60) 06/29/18 06:45 Random Glucose 162 mg/dL (74-106) H 06/29/18 06:45 Calcium 9.2 mg/dL (8.5-10.1) 06/29/18 06:45 Total Bilirubin 0.5 mg/dL (0.2-1) 06/29/18 06:45 AST 13 U/L (15-37) L 06/29/18 06:45 ALT 19 U/L (13-61) 06/29/18 06:45 Alkaline Phosphatase 102 U/L (45-117) 06/29/18 06:45 Total Protein 6.8 g/dl (6.4-8.2) 06/29/18 06:45 Albumin 3.2 g/dl (3.4-5.0) L 06/29/18 06:45 Home Medications Medication Instructions Recorded Ergocalciferol (Vitamin D2) 2,000 unit PO DAILY 12/06/17 [Vitamin D2] Multivitamin [One Daily] 1 each PO DAILY 12/06/17 [place]-3S/Dha/Epa/Fish Oil [Fish 1 each PO DAILY 12/06/17 Oil 1,200 mg Softgel] Omeprazole 40 mg PO DAILY 12/06/17 metFORMIN HCL [Glucophage -] 500 mg PO BID 12/06/17 Insulin Aspart [Novolog Flexpen] 8 unit SQ AC PRN 06/26/18 Insulin (Levemir) [Levemir Vial] 20 unit SQ HS 06/27/18 Ertapenem Sodium [Invanz -] 1 gm IVPB DAILY #40 vial 07/01/18 Miscellaneous Medical Supply 1 each WEEKLY #1 misc 07/01/18 [Outpatient Order] Vancomycin 1,250 mg IVPB Q24H #40 vial 07/01/18 ASSESSMENT AND PLAN: This is a 52 yo M with PMHx of IDDM, osteomyelitis of L 3rd toe, and R hip dysplasia, who presented with L 3rd toe non healing ulcer. # Left 3rd toe non healing ulcer with infection. positive for OM for MRI, on IV ertapenem and Vancomycin as an outpatient, PIcc line in place. #T2DM: cont 15 units of levemir at HS , cont SSI TIDAC discharge patient home.
== END 2018-07-01 19:30 | disposition home or self-care (01) | DRG 638 ==
LOC: JER 17:22 → JERBED 18:06 → J7W 06-27 00:17
PROVIDERS: ADMIT Internal Medicine; ATTEND Internal Medicine
PROC: 02HV33Z Insertion of Infusion Device into Superior Vena Cava, Percutaneous Approach (ICD-10-PCS; principal; 2018-07-01)
PROC: B518ZZA Fluoroscopy of Superior Vena Cava, Guidance (ICD-10-PCS; 2018-07-01)
PROC: B548ZZA Ultrasonography of Superior Vena Cava, Guidance (ICD-10-PCS; 2018-07-01)
DX: E11.621 Type 2 diabetes mellitus with foot ulcer (principal); M86.172 Other acute osteomyelitis, left ankle and foot; Z68.41 Body mass index [BMI] 40.0-44.9, adult; L97.529 Non-pressure chronic ulcer of other part of left foot with unspecified severity; L03.032 Cellulitis of left toe; E11.51 Type 2 diabetes mellitus with diabetic peripheral angiopathy without gangrene; Z79.4 Long term (current) use of insulin; Z79.84 Long term (current) use of oral hypoglycemic drugs; E11.42 Type 2 diabetes mellitus with diabetic polyneuropathy; E11.69 Type 2 diabetes mellitus with other specified complication; B96.4 Proteus (mirabilis) (morganii) as the cause of diseases classified elsewhere; B95.2 Enterococcus as the cause of diseases classified elsewhere; B96.29 Other Escherichia coli [E. coli] as the cause of diseases classified elsewhere; B95.61 Methicillin susceptible Staphylococcus aureus infection as the cause of diseases classified elsewhere; E66.9 Obesity, unspecified; Q65.89 Other specified congenital deformities of hip; Z96.698 Presence of other orthopedic joint implants; K21.9 Gastro-esophageal reflux disease without esophagitis; B35.1 Tinea unguium
CPT/HCPCS: 36415; 36569; 71046-TC-FY; 73630-TC-LT; 73718-LT; 77001-TC-FY; 80053; 82962; 83735; 84100; 85025; 85610; 85730; 87040; 87070; 87186; 87205; 93005; 93010; 93923; 93925-TC; 99284-25; C1751

== ENCOUNTER 2018-10-25 17:31 | Inpatient (IN) | payer OTHER ==
--- NOTE | 2018-10-25 19:31 | PDOC ---
History of Present Illness - General Chief Complaint: Wound Stated Complaint: FOR ADMITION BONE INFECTION Time Seen by Provider: 10/25/18 18:36 History Source: Patient Exam Limitations: No Limitations - History of Present Illness Initial Comments: 10/25/18 19:28 Pt is a 53yo M with PMH of DM sent to ED from Dr. Marti's office for admission. Pt states he had a blister on the L 3rd toe on Thursday which popped on Thursday and has been getting worse. He saw Dr. Marti today and was told to come to the ED for admission for IV antibiotics. He endorses L toe pain and slight swelling. Denies fevers, chills, numbness/tingling, weakness, abdominal pain, n/v/d, diarrhea, urinary symptoms. He has been admitted in the past for similar problems. PMD: PMH: see hpi PSH: none Meds: Social: denies Past History - Past Medical History Allergies/Adverse Reactions: Allergies Allergy/AdvReac Type Severity Reaction Status Date / Time amoxicillin Allergy Rash Verified 10/25/18 17:36 sulfamethoxazole Allergy Rash Verified 10/25/18 17:36 [From Bactrim] trimethoprim [From Bactrim] Allergy Rash Verified 10/25/18 17:36 Home Medications: Ambulatory Orders Ergocalciferol (Vitamin D2) [Vitamin D2] 2,000 unit PO DAILY 12/06/17 Multivitamin [One Daily] 1 each PO DAILY 12/06/17 [place]-3S/Dha/Epa/Fish Oil [Fish Oil 1,200 mg Softgel] 1 each PO DAILY 12/06/17 Omeprazole 40 mg PO DAILY 12/06/17 metFORMIN HCL [Glucophage -] 500 mg PO BID 12/06/17 Insulin Aspart [Novolog Flexpen] 8 unit SQ AC PRN 06/26/18 Insulin (Levemir) [Levemir Vial] 20 unit SQ HS 06/27/18 COPD: No Diabetes: Yes - Immunization History Immunization Up to Date: Yes - Suicide/Smoking/Psychosocial Hx Smoking History: Unknown if ever smoked Number of Cigarettes Smoked Daily: 0 Hx Alcohol Use: No Drug/Substance Use Hx: No Substance Use Type: None *Physical Exam - Vital Signs Last Vital Signs Temp Pulse Resp BP Pulse Ox 98.4 F 85 19 167/67 98 10/25/18 17:38 10/25/18 17:38 10/25/18 17:38 10/25/18 17:38 10/25/18 17:38 Moderate Sedation - Procedure Monitoring Vital Signs: Procedure Monitoring Vital Signs Temperature 98.4 F 10/25/18 17:38 Pulse Rate 85 10/25/18 17:38 Respiratory Rate 19 10/25/18 17:38 Blood Pressure 167/67 10/25/18 17:38 O2 Sat by Pulse Oximetry (%) 98 10/25/18 17:38 ED Treatment Course - LABORATORY CBC & Chemistry Diagram: 10/25/18 19:11 10/25/18 19:11 - RADIOLOGY Radiology Studies Ordered: Category Date Time Status TOE(S) LEFT [RAD] Stat Radiology 10/25/18 19:10 Ordered Medical Decision Making - Medical Decision Making 10/25/18 19:30 Pt is a 53yo M with PMH of DM sent to ED from Dr. Marti's office for admission. Pt states he had a blister on the L 3rd toe on Thursday which popped on Thursday and has been getting worse. He saw Dr. aMrti today and was told to come to the ED for admission for IV antibiotics. He endorses L toe pain and slight swelling. Denies fevers, chills, numbness/tingling, weakness, abdominal pain, n/v/d, diarrhea, urinary symptoms. He has been admitted in the past for similar problems. *DC/Admit/Observation/Transfer - Referrals Referrals: Benjamin Javier MD [Primary Care Provider] - - Patient Instructions - Post Discharge Activity
[2018-10-25 19:34] LABS: BASO % 0.6 % (0-2.0); EOS % 4.6 % (0-4.5); HEMATOCRIT 32.2 % (35.4-49); HEMOGLOBIN 11.5 GM/dL (11.7-16.9); LYMPH % 6.9 % (8-40); MCH 31.5 pg (25.7-33.7); MCHC 35.8 g/dl (32.0-35.9); MEAN CELL VOLUME 87.9 fl (80-96); MEAN PLT VOLUME 8.3 fl (7.5-11.1); MONO % 8.7 % (3.8-10.2); NEUT % 79.2 % (42.8-82.8); PLATELET COUNT 187 K/MM3 (134-434); RBC 3.66 M/mm3 (4.00-5.60); RDW 12.7 % (11.9-15.9); WHITE BLOOD COUNT 7.1 K/mm3 (4.0-10.0)
[2018-10-25 19:46] LABS: INR 1.27 (0.83-1.09)
[2018-10-25 20:02] LABS: ALBUMIN 3.4 g/dl (3.4-5.0); ANION GAP 7 MMOL/L (8-16); BILIRUBIN,TOTAL 0.7 mg/dL (0.2-1); BLOOD UREA NITROGEN 17 mg/dL (7-18); CALCIUM 8.7 mg/dL (8.5-10.1); CHLORIDE 106 mmol/L (98-107); CO2 26 mmol/L (21-32); GLUCOSE,RANDOM 163 mg/dL (74-106); POTASSIUM 4.3 mmol/L (3.5-5.1); SGOT/AST 10 U/L (15-37); SGPT/ALT 16 U/L (13-61); SODIUM 139 mmol/L (136-145); TOT PROT 7.2 g/dl (6.4-8.2)
[2018-10-25 20:03] LABS: ALK PHOS 112 U/L (45-117)
--- NOTE | 2018-10-25 20:21 | PDOC ---
Attending Attestation - Resident Resident Name: Chana Jackson - ED Attending Attestation I have performed the following: I have examined & evaluated the patient, The case was reviewed & discussed with the resident, I agree w/resident's findings & plan, Exceptions are as noted - HPI HPI: 10/25/18 20:10 53 yo male admitted by wound physician, Dr. Marti for left third toe infection. Patient noted a wound on Thursday. Now there is an abscess and ulceration and wound drainage . He waited until Thursday to see his wound care physician. 10/25/18 21:41 - Physicial Exam PE: 10/25/18 21:42 wnwd 53 yo male in no acute distress head ncat neck supple lungs cta b/l cvs [id number] abd nontender, +BS skin warm and dry extremities reveals a left 3rd toe with wound and drainage no acute cva tenderenss neuro axox3,ambulatory psych appropriate - Medical Decision Making 10/25/18 21:44 labs reviewed and the cbc is unremarkable chemistries reviewed and glucose elevated but no other abnormalities 10/26/18 00:17 pt admitted for wound care,IV antibiotics <Madhavi Rodríguez - Last Filed: 10/26/18 00:17> - Medical Decision Making 10/26/18 Multiple calls placed to Dr. Doran's answering service beginning at 7pm without call back now 12am patient will be treated empirically. <Chip Lewis - Last Filed: 10/26/18 00:34> Attestations - Attestations 10/26/18 00:34 Documentation prepared by Chip Lewis, acting as medical laboratory technical officer for Madhavi Rodríguez MD. <Chip Lewis - Last Filed: 10/26/18 00:34>
[2018-10-26] MEDS ORDERED: INSULIN ASPART 8 UNIT SQ PRN (02:27)
[2018-10-26] MEDS ORDERED: ACETAMINOPHEN 325 MG TABLET (FP) PO PRN (02:32)
[2018-10-26] MEDS ORDERED: INSULIN (LEVEMIR) 100 UNITS/ML UNITS SQ ONE (02:45)
[2018-10-26] MEDS: INSULIN SLIDING SCALE (NOVOLOG) 1 VIAL SQ SCH ×4 (06:29→21:33)
[2018-10-26] MEDS: metFORMIN HCL 500 MG TABLET (FP) PO SCH ×2 (06:30→16:19)
[2018-10-26 08:08] LABS: BASO % 0.7 % (0-2.0); EOS % 4.4 % (0-4.5); HEMATOCRIT 31.6 % (35.4-49); HEMOGLOBIN 11.1 GM/dL (11.7-16.9); LYMPH % 6.7 % (8-40); MCH 30.7 pg (25.7-33.7); MCHC 35.3 g/dl (32.0-35.9); MEAN CELL VOLUME 87.1 fl (80-96); MEAN PLT VOLUME 8.1 fl (7.5-11.1); MONO % 9.2 % (3.8-10.2); PLATELET COUNT 161 K/MM3 (134-434); RBC 3.63 M/mm3 (4.00-5.60); RDW 12.7 % (11.9-15.9); WHITE BLOOD COUNT 4.7 K/mm3 (4.0-10.0)
[2018-10-26 08:14] LABS: ALBUMIN 3.2 g/dl (3.4-5.0); ALK PHOS 105 U/L (45-117); ANION GAP 7 MMOL/L (8-16); BILIRUBIN,TOTAL 0.7 mg/dL (0.2-1); BLOOD UREA NITROGEN 17 mg/dL (7-18); CALCIUM 8.7 mg/dL (8.5-10.1); CHLORIDE 104 mmol/L (98-107); CO2 26 mmol/L (21-32); GLUCOSE,RANDOM 157 mg/dL (74-106); POTASSIUM 4.3 mmol/L (3.5-5.1); SGOT/AST 12 U/L (15-37); SGPT/ALT 17 U/L (13-61); SODIUM 137 mmol/L (136-145)
[2018-10-26] MEDS ORDERED: ERTAPENEM SODIUM 1 GM/50 ML PRE-DOCKED IVPB SCH (10:00)
[2018-10-26] MEDS: HEPARIN NA (PORCINE) 5,000 UNITS/ML 1ML VIAL SQ SCH ×2 (10:13→21:32)
[2018-10-26] MEDS: OMEGA-3 ACID ETHYL ESTERS (FATTY-ACIDS) 1 GM CAPSULE (FP) PO SCH ×2 (10:13→21:32)
[2018-10-26] MEDS: MULTIVITAMINS (DAILY MVI) TABLET (FP) PO SCH (10:13)
[2018-10-26] MEDS ORDERED: ERTAPENEM SODIUM 1 GM in SODIUM CHLORIDE 50 ML IVPB ONE (10:30)
[2018-10-26] MEDS: PANTOPRAZOLE 40 MG TABLET (FP) PO SCH (11:08)
--- NOTE | 2018-10-26 11:48 | CONSULT ---
Consult Consult Specialty:: Podiatry Reason for Consultation:: Chronic wound history 3rd toe left - History of Present Illness Chief Complaint: Thursday new wound 3rd toe left History of Present Illness: Wound and infection started Thursday. Sent to ER by me for work up and tx. Patient was on schedule for arthroplasty 3rd toe but broke down once again. - History Source History Provided By: Patient, Medical Record Limitations to Obtaining History: No Limitations - Past Medical History Endocrine: Yes: Diabetes Mellitus - Alcohol/Substance Use Hx Alcohol Use: No - Smoking History Smoking history: Former smoker Have you smoked in the past 12 months: No Aproximately how many cigarettes per day: 0 Home Medications - Allergies Allergies/Adverse Reactions: Allergies Allergy/AdvReac Type Severity Reaction Status Date / Time amoxicillin Allergy Rash Verified 10/25/18 17:36 sulfamethoxazole Allergy Rash Verified 10/25/18 17:36 [From Bactrim] trimethoprim [From Bactrim] Allergy Rash Verified 10/25/18 17:36 - Home Medications Home Medications: Ambulatory Orders Ergocalciferol (Vitamin D2) [Vitamin D2] 2,000 unit PO DAILY 12/06/17 Multivitamin [One Daily] 1 each PO DAILY 12/06/17 [place]-3S/Dha/Epa/Fish Oil [Fish Oil 1,200 mg Softgel] 1 each PO DAILY 12/06/17 Omeprazole 40 mg PO DAILY 12/06/17 metFORMIN HCL [Glucophage -] 500 mg PO BID 12/06/17 Insulin Aspart [Novolog Flexpen] 8 unit SQ AC PRN 06/26/18 Insulin (Levemir) [Levemir Vial] 20 unit SQ HS 06/27/18 Physical Exam Vital Signs: Vital Signs Temperature 99.6 F 10/26/18 06:00 Pulse Rate 78 10/26/18 06:00 Respiratory Rate 20 10/26/18 06:00 Blood Pressure 151/77 10/26/18 06:00 O2 Sat by Pulse Oximetry (%) 98 10/26/18 00:10 Extremities: Yes: Other (+cellulitis, +distal phalanx changes consistent with om , +drainage, +cellulitis extending proximally) Labs: CBC, BMP 10/26/18 06:30 10/26/18 06:30 Imaging - Results X-ray: Image Reviewed (appears to be destructive changes distal phalanx.) Assessment/Plan om? cellulitis IVABX. ID and vascular on case. Santyl dressing change daily. Post op shoe. Awaiting culture results. Patient was offered amputation vs attempting to save toe. Wants to try to save toe again. HBO consult.
--- NOTE | 2018-10-26 11:50 | CONSULT ---
- Consultation REQUESTING PROVIDER: CONSULT REQUEST: We have been asked to surgically evaluate this patient for Left 3rd toe wound/cellulitis PCP:Laurel Rivera HISTORY OF PRESENT ILLNESS: 53yo M admitted to the hospital for worsening cellulitis of Left 3rd toe sent to the ED from Dr. Marti. Vascular was contacted to give vascular clearance. Pt denies any history of vascular disease or surgery. Pt denies tobacco use. PMHx: DM, GERD Home Medications Medication Instructions Recorded Ergocalciferol (Vitamin D2) 2,000 unit PO DAILY 12/06/17 [Vitamin D2] Multivitamin [One Daily] 1 each PO DAILY 12/06/17 [place]-3S/Dha/Epa/Fish Oil [Fish 1 each PO DAILY 12/06/17 Oil 1,200 mg Softgel] Omeprazole 40 mg PO DAILY 12/06/17 metFORMIN HCL [Glucophage -] 500 mg PO BID 12/06/17 Insulin Aspart [Novolog Flexpen] 8 unit SQ AC PRN 06/26/18 Insulin (Levemir) [Levemir Vial] 20 unit SQ HS 06/27/18 Allergies Allergy/AdvReac Type Severity Reaction Status Date / Time amoxicillin Allergy Rash Verified 10/25/18 17:36 sulfamethoxazole Allergy Rash Verified 10/25/18 17:36 [From Bactrim] trimethoprim [From Bactrim] Allergy Rash Verified 10/25/18 17:36 PHYSICAL EXAM: GENERAL: Awake, alert, and fully oriented, in no acute distress. HEAD: Normal with no signs of trauma. EYES: PERRL, sclera anicteric, conjunctiva clear. NECK: Normal ROM, LUNGS: Breathing comfortably, No accessory muscle use. HEART: Regular rate and rhythm. LOWER EXTREMITIES: 2+ pulses, warm, well-perfused. No calf tenderness. Left 3rd toe shows significant callus with wound on distal aspect, surrounding erythema spreading over anterior foot. NEUROLOGICAL: Normal speech, gait not observed. PSYCH: Cooperative. Good eye contact. Appropriate mood and affect. SKIN: Warm, dry, normal turgor, no rashes or lesions noted. Vital Signs Temperature 99.6 F 10/26/18 06:00 Pulse Rate 78 10/26/18 06:00 Respiratory Rate 20 10/26/18 06:00 Blood Pressure 151/77 10/26/18 06:00 O2 Sat by Pulse Oximetry (%) 98 10/26/18 00:10 Lab Results WBC 4.7 K/mm3 (4.0-10.0) 10/26/18 06:30 RBC 3.63 M/mm3 (4.00-5.60) L 10/26/18 06:30 Hgb 11.1 GM/dL (11.7-16.9) L 10/26/18 06:30 Hct 31.6 % (35.4-49) L 10/26/18 06:30 MCV 87.1 fl (80-96) 10/26/18 06:30 MCHC 35.3 g/dl (32.0-35.9) 10/26/18 06:30 RDW 12.7 % (11.9-15.9) 10/26/18 06:30 Plt Count 161 K/MM3 (134-434) 10/26/18 06:30 Sodium 137 mmol/L (136-145) 10/26/18 06:30 Potassium 4.3 mmol/L (3.5-5.1) 10/26/18 06:30 Chloride 104 mmol/L (98-107) 10/26/18 06:30 Carbon Dioxide 26 mmol/L (21-32) 10/26/18 06:30 Anion Gap 7 MMOL/L (8-16) L 10/26/18 06:30 BUN 17 mg/dL (7-18) 10/26/18 06:30 Creatinine 1.0 mg/dL (0.55-1.3) 10/26/18 06:30 Random Glucose 157 mg/dL (74-106) H 10/26/18 06:30 Calcium 8.7 mg/dL (8.5-10.1) 10/26/18 06:30 INR 1.27 (0.83-1.09) H 10/25/18 19:11 Problem List - Problems (1) Diabetic foot ulcer Assessment/Plan: Plan -no vascular intervention needed at this time -follow up with Dr. Marti for wound care recs -med/ID for abx -please contact if any worsening issues Code(s): E11.621 - TYPE 2 DIABETES MELLITUS WITH FOOT ULCER; L97.509 - NON- PRESSURE CHRONIC ULCER OTH PRT UNSP FOOT W UNSP SEVERITY Qualifiers:
--- NOTE | 2018-10-26 12:32 | CON.ID ---
Consult Consult Specialty:: infectious diseases Referred by:: Reason for Consultation:: infected toe - History of Present Illness Chief Complaint: pus and swelling of the toe History of Present Illness: Pt is a 53 y/o male with PMH significant for diabetes. Pt was sent to ED from Dr. Marti's office for admission. Pt states he had a blister on the L 3rd toe on Thursday which popped on Thursday and has been getting worse. He complains of toe pain, slight swelling and redness. patient known to me from previous admissions and who was treated for osteo again comes with swelling and pus from the toe looking at the toe which is swollen and erythematous patient denies any injury or any other issues - History Source History Provided By: Patient Limitations to Obtaining History: No Limitations - Past Medical History Endocrine: Yes: Diabetes Mellitus - Alcohol/Substance Use Hx Alcohol Use: No - Smoking History Smoking history: Former smoker Have you smoked in the past 12 months: No Aproximately how many cigarettes per day: 0 Home Medications - Allergies Allergies/Adverse Reactions: Allergies Allergy/AdvReac Type Severity Reaction Status Date / Time amoxicillin Allergy Rash Verified 10/25/18 17:36 sulfamethoxazole Allergy Rash Verified 10/25/18 17:36 [From Bactrim] trimethoprim [From Bactrim] Allergy Rash Verified 10/25/18 17:36 - Home Medications Home Medications: Ambulatory Orders RX: Ergocalciferol (Vitamin D2) [Vitamin D2] 2,000 unit PO DAILY 12/06/17 RX: Multivitamin [One Daily] 1 each PO DAILY 12/06/17 RX: [place]yman-3S/Dha/Epa/Fish Oil [Fish Oil 1,200 mg Softgel] 1 each PO DAILY RX: Omeprazole 40 mg PO DAILY 12/06/17 RX: metFORMIN HCL [Glucophage -] 500 mg PO BID 12/06/17 RX: Insulin Aspart [Novolog Flexpen] 8 unit SQ AC PRN 06/26/18 RX: Insulin (Levemir) [Levemir Vial] 20 unit SQ HS 06/27/18 Review of Systems - Review of Systems Constitutional: reports: No Symptoms Eyes: reports: No Symptoms HENT: reports: No Symptoms Neck: reports: No Symptoms Cardiovascular: reports: No Symptoms Respiratory: reports: No Symptoms Gastrointestinal: reports: No Symptoms Genitourinary: reports: No Symptoms Musculoskeletal: reports: No Symptoms Integumentary: reports: Change in Color, Erythema, Wound (toe) Neurological: reports: No Symptoms Endocrine: reports: No Symptoms Hematology/Lymphatic: reports: No Symptoms Psychiatric: reports: No Symptoms Physical Exam Vital Signs: Vital Signs Temperature 98.7 F 10/26/18 10:00 Pulse Rate 88 10/26/18 10:00 Respiratory Rate 20 10/26/18 10:00 Blood Pressure 130/71 10/26/18 10:00 O2 Sat by Pulse Oximetry (%) 98 10/26/18 09:00 Constitutional: Yes: Well Nourished, No Distress, Calm, Obese Eyes: Yes: Conjunctiva Clear, EOM Intact HENT: Yes: Atraumatic, Normocephalic Neck: Yes: Supple, Trachea Midline Cardiovascular: Yes: Regular Rate and Rhythm Respiratory: Yes: Regular, CTA Bilaterally Gastrointestinal: Yes: Normal Bowel Sounds, Soft Musculoskeletal: Yes: WNL Extremities: Yes: Erythema, Other (swelling of the foot and erythema of the toe) Wound/Incision: Yes: Draining, Reddened Neurological: Yes: Alert, Oriented Psychiatric: Yes: Alert, Oriented Labs: CBC, BMP 10/26/18 06:30 10/26/18 06:30 Imaging - Results X-ray: Report Reviewed, Image Reviewed Assessment/Plan Problem List - Problems (1) Diabetes Code(s): E11.9 - TYPE 2 DIABETES MELLITUS WITHOUT COMPLICATIONS (2) HLD (hyperlipidemia) Code(s): E78.5 - HYPERLIPIDEMIA, UNSPECIFIED (3) HTN (hypertension) Code(s): I10 - ESSENTIAL (PRIMARY) HYPERTENSION (4) PVD (peripheral vascular disease) Code(s): I73.9 - PERIPHERAL VASCULAR DISEASE, UNSPECIFIED (5) Status post amputation Code(s): Z89.9 - ACQUIRED ABSENCE OF LIMB, UNSPECIFIED (6) Diabetic foot ulcer Code(s): E11.621 - TYPE 2 DIABETES MELLITUS WITH FOOT ULCER; L97.509 - NON- PRESSURE CHRONIC ULCER OTH PRT UNSP FOOT W UNSP SEVERITY Qualifiers: (7) Osteomyelitis of foot, left, acute Code(s): M86.172 - OTHER ACUTE OSTEOMYELITIS, LEFT ANKLE AND FOOT plan will start patient on abx await for cx report probably needs amputation podiatry will see the patient rest as per the team
--- NOTE | 2018-10-26 14:56 | ECHO ---
Name: SJ EASON Exam:Adult Echocardiogram Study Date: 10/26/2018 01:51 PM Age: 53 yrs Reason For Study: HTN Height: 68 in Weight: 255 lb BSA: 2.3 m2 MMode/2D Measurements & Calculations IVSd: 0.97 cm Ao root diam: 3.3 cm LVIDd: 5.7 cm LA dimension: 4.1 cm LVIDs: 3.3 cm ACS: 1.8 cm LVPWd: 1.1 cm IVSs: 1.4 cm LVPWs: 1.4 cm EDV(Teich): 157.3 ml ESV(Teich): 43.7 ml Doppler Measurements & Calculations MV E max samuel: 92.8 cm/sec Ao V2 max: 165.6 cm/sec MV A max samuel: 66.9 cm/sec Ao max P.0 mmHg MV E/A: 1.4 Ao V2 mean: 110.7 cm/sec Ao mean P.7 mmHg Ao V2 VTI: 31.2 cm Med Peak E' Samuel: 8.5 cm/sec Med E/e': 10.9 Lat Peak E' Samuel: 9.5 cm/sec Lat E/e': 9.8 Procedure A complete two-dimensional transthoracic echocardiogram was performed (2D, M-mode, Doppler and color flow Doppler). Left Ventricle The left ventricular size, thickness and function are normal. Ejection Fraction = 65%. The transmitra l spectral Doppler flow pattern is suggestive of impaired LV relaxation. The left ventricular wall ryland on is normal. Right Ventricle The right ventricle is normal in size and function. Atria The left atrium is borderline dilated. Right atrial size is normal. Mitral Valve There is mild mitral annular calcification. There is mild mitral valve thickening. There is no mitral regurgitation noted. Tricuspid Valve The tricuspid valve is not well visualized. There is trace tricuspid regurgitation. There was insuffi cient TR detected to calculate RV systolic pressure. Aortic Valve There is mild aortic valve thickening. No aortic regurgitation is present. Great Vessels The aortic root is normal size. Pericardium/Pleura There is no pericardial effusion. There is no pleural effusion. Interpretation Summary The left ventricular size, thickness and function are normal Ejection Fraction = 65%. The right ventricle is normal in size and function. The left atrium is borderline dilated. There is mild mitral annular calcification. There is mild mitral valve thickening. There is trace tricuspid regurgitation. There was insufficient TR detected to calculate RV systolic pressure. There is mild aortic valve thickening. MD Cheng Nuñez 10/26/2018 02:56 PM
--- NOTE | 2018-10-26 15:06 | EKG ---
Test Reason : Blood Pressure : / mmHG Vent. Rate : 085 BPM Atrial Rate : 085 BPM P-R Int : 186 ms QRS Dur : 130 ms QT Int : 374 ms P-R-T Axes : 063 -16 025 degrees QTc Int : 445 ms NORMAL SINUS RHYTHM RIGHT BUNDLE BRANCH BLOCK ABNORMAL ECG WHEN COMPARED WITH ECG OF 26-JUN-2018 18:04, NO SIGNIFICANT CHANGE WAS FOUND Confirmed by Cheng Nuñez MD ([id number]) on 10/26/2018 3:06:19 PM Referred By: Confirmed By:Cheng Nuñez MD
--- NOTE | 2018-10-26 16:38 | HP ---
Admitting History and Physical - Admission History of Present Illness: Pt is a 53 y/o male with PMH significant for diabetes. Pt was sent to ED from Dr. Marti's office for admission. Pt states he had a blister on the L 3rd toe on Thursday which popped on Thursday and has been getting worse. He complains of Lt toe pain, slight swelling and redness. - Past Medical History Endocrine: Yes: Diabetes Mellitus - Smoking History Smoking history: Former smoker Have you smoked in the past 12 months: No Aproximately how many cigarettes per day: 0 - Alcohol/Substance Use Hx Alcohol Use: No Home Medications - Allergies Allergies/Adverse Reactions: Allergies Allergy/AdvReac Type Severity Reaction Status Date / Time amoxicillin Allergy Rash Verified 10/25/18 17:36 sulfamethoxazole Allergy Rash Verified 10/25/18 17:36 [From Bactrim] trimethoprim [From Bactrim] Allergy Rash Verified 10/25/18 17:36 - Home Medications Home Medications: Ambulatory Orders Ergocalciferol (Vitamin D2) [Vitamin D2] 2,000 unit PO DAILY 12/06/17 Multivitamin [One Daily] 1 each PO DAILY 12/06/17 [place]-3S/Dha/Epa/Fish Oil [Fish Oil 1,200 mg Softgel] 1 each PO DAILY 12/06/17 Omeprazole 40 mg PO DAILY 12/06/17 metFORMIN HCL [Glucophage -] 500 mg PO BID 12/06/17 Insulin Aspart [Novolog Flexpen] 8 unit SQ AC PRN 06/26/18 Insulin (Levemir) [Levemir Vial] 20 unit SQ HS 06/27/18 Family Disease History - Family Disease History Family History: Unremarkable Review of Systems - Review of Systems Constitutional: reports: No Symptoms HENT: reports: No Symptoms Neck: reports: No Symptoms Cardiovascular: reports: No Symptoms Respiratory: reports: No Symptoms Gastrointestinal: reports: No Symptoms Genitourinary: reports: No Symptoms Physical Examination Vital Signs: Vital Signs Temperature 98.4 F 10/26/18 13:49 Pulse Rate 84 10/26/18 13:49 Respiratory Rate 20 10/26/18 13:49 Blood Pressure 140/75 10/26/18 13:49 O2 Sat by Pulse Oximetry (%) 98 10/26/18 09:00 Constitutional: Yes: Well Nourished Neck: Yes: WNL, Supple Cardiovascular: Yes: WNL, Regular Rate and Rhythm Respiratory: Yes: WNL, Regular, CTA Bilaterally Gastrointestinal: Yes: WNL, Normal Bowel Sounds, Soft Extremities: Yes: Other ((+) Lt 3rd toe w/ ulcer and surrounding erythema) Edema: No Neurological: Yes: WNL, Alert, Oriented ...Motor Strength: WNL Labs: CBC, BMP 10/26/18 06:30 10/26/18 06:30 Problem List - Problems (1) Diabetic foot ulcer Assessment/Plan: Cont IV ivanz No vascular intervention needed at this time Code(s): E11.621 - TYPE 2 DIABETES MELLITUS WITH FOOT ULCER; L97.509 - NON- PRESSURE CHRONIC ULCER OTH PRT UNSP FOOT W UNSP SEVERITY Qualifiers: (2) Diabetes Assessment/Plan: Cont sliding scale w/ coverage Cont levemir Code(s): E11.9 - TYPE 2 DIABETES MELLITUS WITHOUT COMPLICATIONS (3) PVD (peripheral vascular disease) Assessment/Plan: No intervention needed Code(s): I73.9 - PERIPHERAL VASCULAR DISEASE, UNSPECIFIED
[2018-10-26] MEDS: INSULIN (LEVEMIR) 100 UNITS/ML UNITS SQ SCH (21:33)
[2018-10-27] MEDS: metFORMIN HCL 500 MG TABLET (FP) PO SCH ×2 (06:38→17:10)
[2018-10-27] MEDS: INSULIN SLIDING SCALE (NOVOLOG) 1 VIAL SQ SCH ×4 (06:39→22:24)
[2018-10-27] MEDS: MULTIVITAMINS (DAILY MVI) TABLET (FP) PO SCH (09:44)
[2018-10-27] MEDS: ERTAPENEM SODIUM 1 GM in SODIUM CHLORIDE 50 ML IVPB SCH (09:44)
[2018-10-27] MEDS: COLLAGENASE CLOSTRIDIUM HIST. 30 GRAMS TUBE TP SCH (09:44)
[2018-10-27] MEDS: PANTOPRAZOLE 40 MG TABLET (FP) PO SCH (09:44)
[2018-10-27] MEDS: OMEGA-3 ACID ETHYL ESTERS (FATTY-ACIDS) 1 GM CAPSULE (FP) PO SCH ×2 (09:44→22:24)
[2018-10-27] MEDS: HEPARIN NA (PORCINE) 5,000 UNITS/ML 1ML VIAL SQ SCH ×2 (09:45→22:23)
[2018-10-27] MEDS ORDERED: ERTAPENEM SODIUM 1 GM/50 ML PRE-DOCKED IVPB SCH (10:00)
--- NOTE | 2018-10-27 11:47 | PN ---
Progress Note, Physician History of Present Illness: patient continues to drain from the wound all cx awaited - Current Medication List Current Medications: Active Medications Acetaminophen (Tylenol -) 650 mg PO Q6H PRN PRN Reason: PAIN Collagenase (Santyl -) 1 applic TP DAILY [facility] Last Admin: 10/27/18 09:44 Dose: 1 applic Heparin Sodium (Porcine) (Heparin -) 5,000 unit SQ BID [facility] Last Admin: 10/27/18 09:45 Dose: 5,000 unit Ertapenem 1 gm/ Sodium (Chloride) 50 mls @ 100 mls/hr IVPB DAILY [facility] Last Admin: 10/27/18 09:44 Dose: 100 mls/hr Insulin Aspart (Novolog Vial Sliding Scale -) 1 vial SQ [facility]; Protocol Last Admin: 10/27/18 11:41 Dose: Not Given Insulin Detemir (Levemir Vial) 20 units SQ HS [facility] Last Admin: 10/26/18 21:33 Dose: 20 unit Metformin HCl (Glucophage -) 500 mg PO BIDAC [facility] Last Admin: 10/27/18 06:38 Dose: 500 mg Multivitamins/Minerals/Vitamin C (Tab-A-Vit -) 1 tab PO DAILY [facility] Last Admin: 10/27/18 09:44 Dose: 1 tab [id number] Ethyl Esters (Lovaza -) 2 gm PO BID [facility] Last Admin: 10/27/18 09:44 Dose: 2 gm Pantoprazole Sodium (Protonix -) 40 mg PO DAILY [facility] Last Admin: 10/27/18 09:44 Dose: 40 mg - Objective Vital Signs: Vital Signs Temperature 98.7 F 10/27/18 10:00 Pulse Rate 85 10/27/18 10:00 Respiratory Rate 20 10/27/18 10:00 Blood Pressure 160/78 10/27/18 10:00 O2 Sat by Pulse Oximetry (%) 98 10/26/18 21:00 Constitutional: Yes: No Distress, Calm Cardiovascular: Yes: Regular Rate and Rhythm Respiratory: Yes: Regular, CTA Bilaterally Gastrointestinal: Yes: Normal Bowel Sounds, Soft Musculoskeletal: Yes: WNL Extremities: Yes: Other Neurological: Yes: Alert, Oriented Psychiatric: Yes: Alert, Oriented Labs: CBC, BMP 10/26/18 06:30 10/26/18 06:30 INR, PTT INR 1.27 (0.83-1.09) H 10/25/18 19:11 Assessment/Plan Problem List - Problems (1) Diabetic foot ulcer Code(s): E11.621 - TYPE 2 DIABETES MELLITUS WITH FOOT ULCER; L97.509 - NON- PRESSURE CHRONIC ULCER OTH PRT UNSP FOOT W UNSP SEVERITY Qualifiers: (2) Diabetes Code(s): E11.9 - TYPE 2 DIABETES MELLITUS WITHOUT COMPLICATIONS (3) PVD (peripheral vascular disease) Code(s): I73.9 - PERIPHERAL VASCULAR DISEASE, UNSPECIFIED infection abscess of the toe plan we will continue abx await for blood cx rest as per the team and podiatry
[2018-10-27] MEDS: VANCOMYCIN 1,250 MG in DEXTROSE 5%-WATER - 250 ML IVPB SCH (17:09)
[2018-10-27] MEDS ORDERED: PT OWN MED DRAWER 7, Y5N ONE (17:42)
[2018-10-27] MEDS: INSULIN (LEVEMIR) 100 UNITS/ML UNITS SQ SCH (22:23)
--- NOTE | 2018-10-27 23:31 | PN ---
Progress Note, Physician History of Present Illness: No new complaints - Current Medication List Current Medications: Active Medications Acetaminophen (Tylenol -) 650 mg PO Q6H PRN PRN Reason: PAIN Collagenase (Santyl -) [address] [facility] Last Admin: 10/27/18 09:44 Dose: 1 applic Heparin Sodium (Porcine) (Heparin -) 5,[address] [facility] Last Admin: 10/27/18 22:23 Dose: 5,000 unit Ertapenem 1 gm/ Sodium (Chloride) 50 mls @ 100 mls/hr IVPB DAILY [facility] Last Admin: 10/27/18 09:44 Dose: 100 mls/hr Vancomycin HCl 1,250 mg/ (Dextrose) 250 mls @ 166.667 mls/hr IVPB Q24H [facility]; Protocol Last Admin: 10/27/18 17:09 Dose: 166.667 mls/hr Insulin Aspart (Novolog Vial Sliding Scale -) [address] [facility]; Protocol Last Admin: 10/27/18 22:24 Dose: 2 unit Insulin Detemir (Levemir Vial) [address] [facility] Last Admin: 10/27/18 22:23 Dose: 20 unit Metformin HCl (Glucophage -) [address] [facility] Last Admin: 10/27/18 17:10 Dose: 500 mg Multivitamins/Minerals/Vitamin C (Tab-A-Vit -) [address] [facility] Last Admin: 10/27/18 09:44 Dose: 1 tab [id number] Ethyl Esters (Lovaza -) [address] [facility] Last Admin: 10/27/18 22:24 Dose: 2 gm Pantoprazole Sodium (Protonix -) [address] [facility] Last Admin: 10/27/18 09:44 Dose: 40 mg - Objective Vital Signs: Vital Signs Temperature 98.9 F 10/27/18 18:00 Pulse Rate 79 10/27/18 18:00 Respiratory Rate 20 10/27/18 18:00 Blood Pressure 144/79 10/27/18 18:00 O2 Sat by Pulse Oximetry (%) 97 10/27/18 09:00 Neck: Yes: WNL, Supple Cardiovascular: Yes: WNL, Regular Rate and Rhythm Respiratory: Yes: WNL, Regular, CTA Bilaterally Gastrointestinal: Yes: WNL, Normal Bowel Sounds, Soft Extremities: Yes: Other (Lt foot w/ dressing and slight drainage) Labs: CBC, BMP 10/26/18 06:30 10/26/18 06:30 INR, PTT INR 1.27 (0.83-1.09) H 10/25/18 19:11 Problem List - Problems (1) Diabetic foot ulcer Assessment/Plan: Cont IV ivanz No vascular intervention needed at this time Further w/u as per podiatry Pt doesn't want amputation Code(s): E11.621 - TYPE 2 DIABETES MELLITUS WITH FOOT ULCER; L97.509 - NON- PRESSURE CHRONIC ULCER OTH PRT UNSP FOOT W UNSP SEVERITY Qualifiers: (2) Diabetes Assessment/Plan: Cont sliding scale w/ coverage Cont levemir Code(s): E11.9 - TYPE 2 DIABETES MELLITUS WITHOUT COMPLICATIONS (3) PVD (peripheral vascular disease) Assessment/Plan: No intervention needed Code(s): I73.9 - PERIPHERAL VASCULAR DISEASE, UNSPECIFIED
[2018-10-28] MEDS: metFORMIN HCL 500 MG TABLET (FP) PO SCH ×2 (06:03→17:38)
[2018-10-28] MEDS: INSULIN SLIDING SCALE (NOVOLOG) 1 VIAL SQ SCH ×4 (06:04→21:37)
[2018-10-28] MEDS ORDERED: INSULIN (NOVOLOG) ASPART 100 UNITS/ML 10ML VIAL ONE (06:57)
[2018-10-28] MEDS ORDERED: PT OWN MED DRAWER 7, Y5N ONE (06:57)
--- NOTE | 2018-10-28 08:58 | CON.CARD ---
Cardiology Consult (text) - Consultation Consultation Note: Consult Dictated IMP: Diabetic foot ulcer Chronic HTN REC: Management of diabetic ulcer as per PMD/ID Trial of Ramipril 2.5mg to be titrated to goal BP < 140/90 Check Lipids Thank you Will follow.
--- NOTE | 2018-10-28 09:23 | CONS ---
DATE OF CONSULTATION: DATE OF DICTATION: 10/28/[address] Rivera for hypertension. The patient is a 53-year-old male with longstanding diabetes, admitted on October 25 with a diabetic foot ulcer. He is being treated by Vascular, ID, and Primary Medicine for that issue. I was asked to see him for hypertension. His blood pressure has been running above goal, between 140 and 170 systolic. The patient denies prior cardiac history, denies chest pain, headache, shortness of breath, palpitations, PND, or orthopnea. He has had issues with losartan in the past, becoming very dizzy, hypotensive, and lightheaded, resulting in discontinuation. ALLERGIES: He has allergies to AMOXICILLIN, SULFA, and TRIMETHOPRIM. MEDICATIONS: His active medications include Tylenol, collagenase, ertapenem IV, subcutaneous heparin 5000 units subcutaneous b.i.d., sliding scale insulin along with Levemir, metformin 500 mg b.i.d., multivitamin, omega 3 fatty acids, Protonix 40 mg daily, and vancomycin. FAMILY HISTORY: Significant for father with congestive heart failure. SOCIAL HISTORY: He is a nonsmoker. PHYSICAL EXAMINATION: General: He is alert, oriented, afebrile. Vital Signs: Current blood pressure 176/93, O2 is 98 on room air. Eyes: Anicteric. Neck: No bruits or JVD. Heart: S1, S2 regular. No S3 or S4 was auscultated. Chest: Clear. Abdomen: Obese, soft, nontender. Extremities: Right leg is chronically atrophied. Left leg, no significant pitting edema. LABORATORY: Labs were reviewed. Sodium 137, potassium 4.3, creatinine 1.0. CBC: White count 4.7, hematocrit 31.6, platelets 161. Cultures of the wound are growing staph, group D strep, and proteus. One out of 4 bottles is positive for coagulase-negative staphylococcus, likely a contaminant. His ECG showed normal sinus at 85 with right bundle branch block morphology. IMPRESSION: 1. Diabetic foot ulcer. 2. Chronic hypertension. RECOMMENDATIONS: 1. Management of the foot ulcer as per ID/Vascular and General Medicine. 2. For hypertension, his blood pressure is above the goal of 140/90. Will institute ramipril 2.5 mg daily to be titrated. Please follow potassium and renal function. Will follow. YOAV JALLOH M.D. [id number]
[2018-10-28] MEDS: PANTOPRAZOLE 40 MG TABLET (FP) PO SCH (10:00)
[2018-10-28] MEDS: HEPARIN NA (PORCINE) 5,000 UNITS/ML 1ML VIAL SQ SCH ×2 (10:00→21:33)
[2018-10-28] MEDS: RAMIPRIL 2.5 MG CAPSULE (FP) PO SCH (10:00)
[2018-10-28] MEDS: MULTIVITAMINS (DAILY MVI) TABLET (FP) PO SCH (10:00)
[2018-10-28] MEDS: COLLAGENASE CLOSTRIDIUM HIST. 30 GRAMS TUBE TP SCH (10:01)
[2018-10-28] MEDS: OMEGA-3 ACID ETHYL ESTERS (FATTY-ACIDS) 1 GM CAPSULE (FP) PO SCH ×2 (10:01→21:33)
[2018-10-28] MEDS: ERTAPENEM SODIUM 1 GM in SODIUM CHLORIDE 50 ML IVPB SCH (12:07)
--- NOTE | 2018-10-28 14:31 | PN ---
Progress Note (short form) - Note Progress Note: FUV left foot. Patient wants to continue to try to save the toe. vss, tmax 98.6 +draining 3rd toe left, +improved cellulitis to 3rd mpj left om cellulitis Continue IVABX. Santyl dressing change. HBO. will follow. Discussed with vascular.
--- NOTE | 2018-10-28 15:00 | PN ---
Progress Note, Physician History of Present Illness: foul smell from the toes podiatry seeing the patient the toe probably cannot be saved growing multiple organism blood cx noted - Current Medication List Current Medications: Active Medications Acetaminophen (Tylenol -) 650 mg PO Q6H PRN PRN Reason: PAIN Collagenase (Santyl -) 1 applic TP DAILY [facility] Last Admin: 10/28/18 10:01 Dose: 1 applic Heparin Sodium (Porcine) (Heparin -) 5,000 unit SQ BID [facility] Last Admin: 10/28/18 10:00 Dose: 5,000 unit Ertapenem 1 gm/ Sodium (Chloride) 50 mls @ 100 mls/hr IVPB DAILY [facility] Last Admin: 10/28/18 12:07 Dose: 100 mls/hr Vancomycin HCl 1,250 mg/ (Dextrose) 250 mls @ 166.667 mls/hr IVPB Q24H [facility]; Protocol Last Admin: 10/27/18 17:09 Dose: 166.667 mls/hr Insulin Aspart (Novolog Vial Sliding Scale -) 1 vial SQ [facility]; Protocol Last Admin: 10/28/18 12:01 Dose: Not Given Insulin Detemir (Levemir Vial) 20 units SQ HS [facility] Last Admin: 10/27/18 22:23 Dose: 20 unit Metformin HCl (Glucophage -) 500 mg PO BIDAC [facility] Last Admin: 10/28/18 06:03 Dose: 500 mg Multivitamins/Minerals/Vitamin C (Tab-A-Vit -) 1 tab PO DAILY [facility] Last Admin: 10/28/18 10:00 Dose: 1 tab Iebru-8-Fmby Ethyl Esters (Lovaza -) 2 gm PO BID [facility] Last Admin: 10/28/18 10:01 Dose: 2 gm Pantoprazole Sodium (Protonix -) 40 mg PO DAILY [facility] Last Admin: 10/28/18 10:00 Dose: 40 mg Ramipril (Altace -) 2.5 mg PO DAILY [facility] Last Admin: 10/28/18 10:00 Dose: 2.5 mg - Objective Vital Signs: Vital Signs Temperature 98.6 F 10/28/18 13:51 Pulse Rate 77 10/28/18 13:51 Respiratory Rate 20 10/28/18 13:51 Blood Pressure 134/67 10/28/18 13:51 O2 Sat by Pulse Oximetry (%) 98 10/28/18 09:00 Constitutional: Yes: No Distress, Calm Cardiovascular: Yes: Regular Rate and Rhythm Respiratory: Yes: Regular, CTA Bilaterally Gastrointestinal: Yes: Normal Bowel Sounds, Soft Musculoskeletal: Yes: WNL Extremities: Yes: Other (drainaing of the toe cellulitis better) Integumentary: Yes: Other Wound/Incision: Yes: Draining Neurological: Yes: Alert, Oriented Psychiatric: Yes: Alert, Oriented Labs: CBC, BMP 10/26/18 06:30 10/26/18 06:30 INR, PTT INR 1.27 (0.83-1.09) H 10/25/18 19:11 Assessment/Plan Problem List - Problems (1) Diabetic foot ulcer Code(s): E11.621 - TYPE 2 DIABETES MELLITUS WITH FOOT ULCER; L97.509 - NON- PRESSURE CHRONIC ULCER OTH PRT UNSP FOOT W UNSP SEVERITY Qualifiers: (2) Diabetes Code(s): E11.9 - TYPE 2 DIABETES MELLITUS WITHOUT COMPLICATIONS (3) PVD (peripheral vascular disease) Code(s): I73.9 - PERIPHERAL VASCULAR DISEASE, UNSPECIFIED infection abscess of the toe plan we will continue abx blood cx noted rest as per the team might need amputation rest as per the podiatry team
[2018-10-28] MEDS: VANCOMYCIN 1,250 MG in DEXTROSE 5%-WATER - 250 ML IVPB SCH (15:32)
[2018-10-28] MEDS: INSULIN (LEVEMIR) 100 UNITS/ML UNITS SQ SCH (21:33)
--- NOTE | 2018-10-28 23:24 | PN ---
Progress Note, Physician History of Present Illness: Pt complains of cough wc is dry and nonproductive wc he states was worse yesterday - Current Medication List Current Medications: Active Medications Acetaminophen (Tylenol -) 650 mg PO Q6H PRN PRN Reason: PAIN Collagenase (Santyl -) 1 applic TP DAILY [facility] Last Admin: 10/28/18 10:01 Dose: 1 applic Heparin Sodium (Porcine) (Heparin -) 5,000 unit SQ BID [facility] Last Admin: 10/28/18 21:33 Dose: 5,000 unit Ertapenem 1 gm/ Sodium (Chloride) 50 mls @ 100 mls/hr IVPB DAILY [facility] Last Admin: 10/28/18 12:07 Dose: 100 mls/hr Vancomycin HCl 1,250 mg/ (Dextrose) 250 mls @ 166.667 mls/hr IVPB Q24H [facility]; Protocol Last Admin: 10/28/18 15:32 Dose: 166.667 mls/hr Insulin Aspart (Novolog Vial Sliding Scale -) 1 vial SQ ACHS [facility]; Protocol Last Admin: 10/28/18 21:37 Dose: Not Given Insulin Detemir (Levemir Vial) 20 units SQ HS [facility] Last Admin: 10/28/18 21:33 Dose: 20 unit Metformin HCl (Glucophage -) 500 mg PO BIDAC [facility] Last Admin: 10/28/18 17:38 Dose: 500 mg Multivitamins/Minerals/Vitamin C (Tab-A-Vit -) 1 tab PO DAILY [facility] Last Admin: 10/28/18 10:00 Dose: 1 tab Porst-3-Nqbv Ethyl Esters (Lovaza -) 2 gm PO BID [facility] Last Admin: 10/28/18 21:33 Dose: 2 gm Pantoprazole Sodium (Protonix -) 40 mg PO DAILY [facility] Last Admin: 10/28/18 10:00 Dose: 40 mg Ramipril (Altace -) 2.5 mg PO DAILY [facility] Last Admin: 10/28/18 10:00 Dose: 2.5 mg - Objective Vital Signs: Vital Signs Temperature 98 F 10/28/18 22:00 Pulse Rate 80 10/28/18 22:00 Respiratory Rate 20 10/28/18 22:00 Blood Pressure 137/75 10/28/18 22:00 O2 Sat by Pulse Oximetry (%) 98 10/28/18 21:00 Constitutional: Yes: Well Nourished Neck: Yes: WNL Cardiovascular: Yes: WNL, Regular Rate and Rhythm Respiratory: Yes: WNL, Regular, CTA Bilaterally Gastrointestinal: Yes: WNL, Normal Bowel Sounds, Soft Extremities: Yes: Other (Lt foot w/ ddressing wc is dry) Labs: CBC, BMP 10/26/18 06:30 10/26/18 06:30 INR, PTT INR 1.27 (0.83-1.09) H 10/25/18 19:11 Problem List - Problems (1) Cough Assessment/Plan: Check CXR Code(s): R05 - COUGH (2) Diabetic foot ulcer Assessment/Plan: Cont IV ivanz/vanco No vascular intervention needed at this time Pt doesn't want amputation Code(s): E11.621 - TYPE 2 DIABETES MELLITUS WITH FOOT ULCER; L97.509 - NON- PRESSURE CHRONIC ULCER OTH PRT UNSP FOOT W UNSP SEVERITY Qualifiers: (3) Diabetes Assessment/Plan: Cont sliding scale w/ coverage Cont levemir Code(s): E11.9 - TYPE 2 DIABETES MELLITUS WITHOUT COMPLICATIONS (4) PVD (peripheral vascular disease) Assessment/Plan: No intervention needed Code(s): I73.9 - PERIPHERAL VASCULAR DISEASE, UNSPECIFIED
[2018-10-29] MEDS: metFORMIN HCL 500 MG TABLET (FP) PO SCH ×2 (06:28→16:52)
[2018-10-29] MEDS: INSULIN SLIDING SCALE (NOVOLOG) 1 VIAL SQ SCH ×4 (06:29→23:15)
[2018-10-29 07:47] LABS: BASO % 0.6 % (0-2.0); EOS % 6.1 % (0-4.5); HEMATOCRIT 30.9 % (35.4-49); LYMPH % 10.3 % (8-40); MCH 30.6 pg (25.7-33.7); MCHC 35.6 g/dl (32.0-35.9); MONO % 13.2 % (3.8-10.2); NEUT % 69.8 % (42.8-82.8); PLATELET COUNT 176 K/MM3 (134-434); RBC 3.59 M/mm3 (4.00-5.60); RDW 12.6 % (11.9-15.9); WHITE BLOOD COUNT 5.4 K/mm3 (4.0-10.0)
[2018-10-29 08:24] LABS: ALBUMIN 2.9 g/dl (3.4-5.0); ALK PHOS 101 U/L (45-117); ANION GAP 7 MMOL/L (8-16); BILIRUBIN,TOTAL 0.6 mg/dL (0.2-1); BLOOD UREA NITROGEN 18 mg/dL (7-18); CALCIUM 8.7 mg/dL (8.5-10.1); CHLORIDE 103 mmol/L (98-107); CO2 28 mmol/L (21-32); CREATININE 0.9 mg/dL (0.55-1.3); GLUCOSE,RANDOM 107 mg/dL (74-106); POTASSIUM 4.8 mmol/L (3.5-5.1); SGOT/AST 16 U/L (15-37); SGPT/ALT 15 U/L (13-61); SODIUM 138 mmol/L (136-145); TOT PROT 6.6 g/dl (6.4-8.2)
--- NOTE | 2018-10-29 09:41 | PN ---
Physical Exam: SUBJECTIVE: Patient seen and examined. He has no complaints. OBJECTIVE: Vital Signs Period Temp Pulse Resp BP Sys/Cruz Pulse Ox Last 24 Hr 97.9 F-98.7 F 77-81 20-20 117-143/64-75 98 GENERAL: The patient is awake, alert, and fully oriented, in no acute distress. LUNGS: Breath sounds equal, clear to auscultation bilaterally, no wheezes, no crackles, no accessory muscle use. HEART: Regular rate and rhythm, S1, S2 without murmur, rub or gallop. ABDOMEN: Obese, soft, nontender, nondistended, normoactive bowel sounds, no guarding, no rebound, no hepatosplenomegaly, no masses. EXTREMITIES: 2+ pulses, warm, well-perfused, no edema. Left foot wrapped. Laboratory Results - last 24 hr 10/28/18 10/28/18 10/28/18 12:00 16:49 21:36 WBC RBC Hgb Hct MCV MCH MCHC RDW Plt Count MPV Absolute Neuts (auto) Neutrophils % Lymphocytes % Monocytes % Eosinophils % Basophils % Nucleated RBC % Sodium Potassium Chloride Carbon Dioxide Anion Gap BUN Creatinine Creat Clearance w eGFR POC Glucometer 131 146 143 Random Glucose Calcium Total Bilirubin AST ALT Alkaline Phosphatase Total Protein Albumin 10/29/18 10/29/18 10/29/18 06:27 06:30 06:30 WBC 5.4 RBC 3.59 L Hgb 11.0 L Hct 30.9 L MCV 86.0 MCH 30.6 MCHC 35.6 RDW 12.6 Plt Count 176 MPV 8.0 Absolute Neuts (auto) 3.8 Neutrophils % 69.8 Lymphocytes % 10.3 D Monocytes % 13.2 H Eosinophils % 6.1 H Basophils % 0.6 Nucleated RBC % 0 Sodium 138 Potassium 4.8 Chloride 103 Carbon Dioxide 28 Anion Gap 7 L BUN 18 Creatinine 0.9 Creat Clearance w eGFR > 60 POC Glucometer 113 Random Glucose 107 H Calcium 8.7 Total Bilirubin 0.6 AST 16 ALT 15 Alkaline Phosphatase 101 Total Protein 6.6 Albumin 2.9 L Active Medications Generic Name Dose Route Start Last Admin Trade Name Freq PRN Reason Stop Dose Admin Acetaminophen 650 mg 10/26/18 02:32 Tylenol - PO Q6H PRN PAIN Collagenase 1 applic 10/27/18 10:00 10/28/18 10:01 Santyl - TP 1 applic DAILY [facility] Administration Heparin Sodium (Porcine) 5,000 unit 10/26/18 10:00 10/28/18 21:33 Heparin - SQ 5,000 unit BID [facility] Administration Ertapenem 1 gm/ Sodium 50 mls @ 100 mls/hr 10/27/18 10:00 10/28/18 12:07 Chloride IVPB 100 mls/hr DAILY [facility] Administration Vancomycin HCl 1,250 mg/ 250 mls @ 166.667 mls/hr 10/27/18 15:30 10/28/18 15: 32 Dextrose IVPB 166.667 mls/hr Q24H [facility] Administration Protocol Insulin Aspart 1 vial 10/26/18 07:00 10/29/18 06:29 Novolog Vial Sliding Scale - SQ Not Given ACHS [facility] Protocol Insulin Detemir 20 units 10/26/18 22:00 10/28/18 21:33 Levemir Vial SQ 20 unit HS [facility] Administration Metformin HCl 500 mg 10/26/18 07:00 10/29/18 06:28 Glucophage - PO 500 mg BIDAC [facility] Administration Multivitamins/Minerals/Vitamin C 1 tab 10/26/18 10:00 10/28/18 10:00 Tab-A-Vit - PO 1 tab DAILY [facility] Administration Pqeqc-0-Zypw Ethyl Esters 2 gm 10/26/18 10:00 10/28/18 21:33 Lovaza - PO 2 gm BID [facility] Administration Pantoprazole Sodium 40 mg 10/26/18 11:15 10/28/18 10:00 Protonix - PO 40 mg DAILY [facility] Administration Ramipril 2.5 mg 10/28/18 10:00 10/28/18 10:00 Altace - PO 2.5 mg DAILY [facility] Administration ASSESSMENT/PLAN: This is a 53 year old man with a history of HTN, hyperlipidemia, type 2 DM, obesity who was sent by Dr. Marti to the ED for treatment of left 3rd toe cellulitis. 1. Left 3rd toe ulcer and abscess with cellulitis and osteomyelitis - Blood cultures (+) coag neg Staph in 1 of 2 - Wound culture growing Proteus, group D Strep, presumed MRSA - Continue wound care with Santyl - Continue Invanz, Vancomycin - Podiatry follow up, vascular consult 2. Type 2 DM - Continue Levemir, metformin, Novolog sliding scale 3. HTN - Continue Altace 4., Hyperlipidemia - Continue Lovaza 5. Obesity with BMI 38.8 Visit type - Emergency Visit Emergency Visit: Yes ED Registration Date: 10/25/18 Care time: The patient presented to the Emergency Department on the above date and was hospitalized for further evaluation of their emergent condition. - New Patient This patient is new to me today: Yes Date on this admission: 10/29/18 - Critical Care Critical Care patient: No - Discharge Referral Referred to [facility] Med P.C.: No
[2018-10-29] MEDS: ERTAPENEM SODIUM 1 GM in SODIUM CHLORIDE 50 ML IVPB SCH (10:00)
[2018-10-29] MEDS: PANTOPRAZOLE 40 MG TABLET (FP) PO SCH (10:00)
[2018-10-29] MEDS: RAMIPRIL 2.5 MG CAPSULE (FP) PO SCH (10:00)
[2018-10-29] MEDS: MULTIVITAMINS (DAILY MVI) TABLET (FP) PO SCH (10:00)
[2018-10-29] MEDS: OMEGA-3 ACID ETHYL ESTERS (FATTY-ACIDS) 1 GM CAPSULE (FP) PO SCH ×2 (10:00→22:19)
--- NOTE | 2018-10-29 10:00 | PN ---
Progress Note, Physician Chief Complaint: BP at goal Tolerated JURGEN well - Current Medication List Current Medications: Active Medications Acetaminophen (Tylenol -) 650 mg PO Q6H PRN PRN Reason: PAIN Collagenase (Santyl -) 1 applic TP DAILY [facility] Last Admin: 10/28/18 10:01 Dose: 1 applic Heparin Sodium (Porcine) (Heparin -) 5,000 unit SQ BID [facility] Last Admin: 10/28/18 21:33 Dose: 5,000 unit Ertapenem 1 gm/ Sodium (Chloride) 50 mls @ 100 mls/hr IVPB DAILY [facility] Last Admin: 10/28/18 12:07 Dose: 100 mls/hr Vancomycin HCl 1,250 mg/ (Dextrose) 250 mls @ 166.667 mls/hr IVPB Q24H [facility]; Protocol Last Admin: 10/28/18 15:32 Dose: 166.667 mls/hr Insulin Aspart (Novolog Vial Sliding Scale -) 1 vial SQ [facility]; Protocol Last Admin: 10/29/18 06:29 Dose: Not Given Insulin Detemir (Levemir Vial) 20 units SQ HS [facility] Last Admin: 10/28/18 21:33 Dose: 20 unit Metformin HCl (Glucophage -) 500 mg PO BIDAC [facility] Last Admin: 10/29/18 06:28 Dose: 500 mg Multivitamins/Minerals/Vitamin C (Tab-A-Vit -) 1 tab PO DAILY [facility] Last Admin: 10/28/18 10:00 Dose: 1 tab Bjexj-5-Zilq Ethyl Esters (Lovaza -) 2 gm PO BID [facility] Last Admin: 10/28/18 21:33 Dose: 2 gm Pantoprazole Sodium (Protonix -) 40 mg PO DAILY [facility] Last Admin: 10/28/18 10:00 Dose: 40 mg Ramipril (Altace -) 2.5 mg PO DAILY [facility] Last Admin: 10/28/18 10:00 Dose: 2.5 mg - Objective Vital Signs: Vital Signs Temperature 98.3 F 10/29/18 06:35 Pulse Rate 80 10/29/18 06:35 Respiratory Rate 20 10/29/18 06:35 Blood Pressure 117/64 10/29/18 06:35 O2 Sat by Pulse Oximetry (%) 98 10/28/18 21:00 Constitutional: Yes: No Distress Cardiovascular: Yes: Regular Rate and Rhythm Respiratory: Yes: CTA Bilaterally Gastrointestinal: Yes: Soft Edema: No Neurological: Yes: Alert, Oriented ...Motor Strength: WNL Labs: CBC, BMP 10/29/18 06:30 10/29/18 06:30 INR, PTT INR 1.27 (0.83-1.09) H 10/25/18 19:11 Laboratory Tests 10/29/18 10/29/18 06:30 06:30 WBC 5.4 Hgb 11.0 L Plt Count 176 Sodium 138 Potassium 4.8 Creatinine 0.9 Assessment/Plan IMP: Diabetic foot ulcer Chronic HTN REC: 1. BP improved, at goal w/ addition Ramipril 2. Further w/u and management foot ulcer as per Medicine/ID/Vascular 3. Needs outpt Lipid labs and consideration for stress test for further CV risk stratification. 4. Would start ASA 81mg daily if no medical contraindication (DM is CAD risk equivalent) Will sign off today. Please call again as/ if needed. Patient should f/u in office
[2018-10-29] MEDS: HEPARIN NA (PORCINE) 5,000 UNITS/ML 1ML VIAL SQ SCH ×2 (10:10→22:19)
[2018-10-29] MEDS: COLLAGENASE CLOSTRIDIUM HIST. 30 GRAMS TUBE TP SCH (10:10)
--- NOTE | 2018-10-29 13:27 | PN ---
Progress Note, Physician History of Present Illness: patient stable discussed with him in detail - Current Medication List Current Medications: Active Medications Acetaminophen (Tylenol -) 650 mg PO Q6H PRN PRN Reason: PAIN Collagenase (Santyl -) 1 applic TP DAILY [facility] Last Admin: 10/29/18 10:10 Dose: 1 applic Heparin Sodium (Porcine) (Heparin -) 5,000 unit SQ BID [facility] Last Admin: 10/29/18 10:10 Dose: 5,000 unit Ertapenem 1 gm/ Sodium (Chloride) 50 mls @ 100 mls/hr IVPB DAILY [facility] Last Admin: 10/29/18 10:00 Dose: 100 mls/hr Vancomycin HCl 1,250 mg/ (Dextrose) 250 mls @ 166.667 mls/hr IVPB Q24H [facility]; Protocol Last Admin: 10/28/18 15:32 Dose: 166.667 mls/hr Insulin Aspart (Novolog Vial Sliding Scale -) 1 vial SQ ACHS [facility]; Protocol Last Admin: 10/29/18 12:08 Dose: 2 unit Insulin Detemir (Levemir Vial) 20 units SQ HS [facility] Last Admin: 10/28/18 21:33 Dose: 20 unit Metformin HCl (Glucophage -) 500 mg PO BIDAC [facility] Last Admin: 10/29/18 06:28 Dose: 500 mg Multivitamins/Minerals/Vitamin C (Tab-A-Vit -) 1 tab PO DAILY [facility] Last Admin: 10/29/18 10:00 Dose: 1 tab Wossr-9-Smll Ethyl Esters (Lovaza -) 2 gm PO BID [facility] Last Admin: 10/29/18 10:00 Dose: 2 gm Pantoprazole Sodium (Protonix -) 40 mg PO DAILY [facility] Last Admin: 10/29/18 10:00 Dose: 40 mg Ramipril (Altace -) 2.5 mg PO DAILY [facility] Last Admin: 10/29/18 10:00 Dose: 2.5 mg - Objective Vital Signs: Vital Signs Temperature 98.3 F 10/29/18 06:35 Pulse Rate 80 10/29/18 06:35 Respiratory Rate 20 10/29/18 06:35 Blood Pressure 117/64 10/29/18 06:35 O2 Sat by Pulse Oximetry (%) 98 10/28/18 21:00 Constitutional: Yes: No Distress, Calm, Obese Cardiovascular: Yes: Regular Rate and Rhythm Respiratory: Yes: Regular, CTA Bilaterally Gastrointestinal: Yes: Normal Bowel Sounds, Soft Musculoskeletal: Yes: WNL Extremities: Yes: Other Wound/Incision: Yes: Dressing Dry and Intact Neurological: Yes: Alert, Oriented Psychiatric: Yes: Alert, Oriented Labs: CBC, BMP 10/29/18 06:30 10/29/18 06:30 INR, PTT INR 1.27 (0.83-1.09) H 10/25/18 19:11 Assessment/Plan Problem List - Problems (1) Diabetic foot ulcer Code(s): E11.621 - TYPE 2 DIABETES MELLITUS WITH FOOT ULCER; L97.509 - NON- PRESSURE CHRONIC ULCER OTH PRT UNSP FOOT W UNSP SEVERITY Qualifiers: (2) Diabetes Code(s): E11.9 - TYPE 2 DIABETES MELLITUS WITHOUT COMPLICATIONS (3) PVD (peripheral vascular disease) Code(s): I73.9 - PERIPHERAL VASCULAR DISEASE, UNSPECIFIED infection abscess of the toe plan we will continue abx blood cx noted rest as per the team might need amputation rest as per the podiatry team check vanco level
--- NOTE | 2018-10-29 15:07 | PN ---
Progress Note (short form) - Note Progress Note: FUV left foot. Patient wants to continue to try to save the toe. vss, tmax 98.3 +draining 3rd toe left, +improved cellulitis to 3rd mpj left, om cellulitis Continue IVABX. Santyl dressing change. HBO. will follow. Discussed with I& D agree that most likely toe will not be salvageable senior living. Gave him the option to have amputation done. Wants to think about it and tell me tomorrow. If agrees to sx will be done on Thursday.
[2018-10-29] MEDS: VANCOMYCIN 1,250 MG in DEXTROSE 5%-WATER - 250 ML IVPB SCH (16:52)
[2018-10-29] MEDS ORDERED: PT OWN MED DRAWER 7, Y5N ONE (17:25)
[2018-10-29] MEDS: INSULIN (LEVEMIR) 100 UNITS/ML UNITS SQ SCH (22:19)
[2018-10-30] MEDS: metFORMIN HCL 500 MG TABLET (FP) PO SCH ×2 (06:15→17:48)
[2018-10-30] MEDS: INSULIN SLIDING SCALE (NOVOLOG) 1 VIAL SQ SCH ×4 (06:18→21:53)
--- NOTE | 2018-10-30 09:23 | PN ---
Progress Note (short form) - Note Progress Note: FUV left foot. Patient has agreed to amputation of 3rd toe. vss, tmax 98.7 +draining 3rd toe left, +improved cellulitis to 3rd mpj left, om, om cellulitis Continue IVABX. cristian mack. betadine dressing change. Gave him the option to have amputation done. Pt has agreed to amputation of toe. on schedule for 11:30 on Thursday. Please maximize for OR. Will consent in am.
[2018-10-30] MEDS ORDERED: PT OWN MED DRAWER 7, Y5N ONE (10:32)
[2018-10-30] MEDS: ERTAPENEM SODIUM 1 GM in SODIUM CHLORIDE 50 ML IVPB SCH (10:36)
[2018-10-30] MEDS: PANTOPRAZOLE 40 MG TABLET (FP) PO SCH (10:36)
[2018-10-30] MEDS: RAMIPRIL 2.5 MG CAPSULE (FP) PO SCH (10:36)
[2018-10-30] MEDS: MULTIVITAMINS (DAILY MVI) TABLET (FP) PO SCH (10:36)
[2018-10-30] MEDS: OMEGA-3 ACID ETHYL ESTERS (FATTY-ACIDS) 1 GM CAPSULE (FP) PO SCH ×2 (10:36→21:52)
[2018-10-30] MEDS: HEPARIN NA (PORCINE) 5,000 UNITS/ML 1ML VIAL SQ SCH ×2 (10:36→21:52)
[2018-10-30] MEDS: COLLAGENASE CLOSTRIDIUM HIST. 30 GRAMS TUBE TP SCH (10:37)
--- NOTE | 2018-10-30 11:23 | PN ---
Physical Exam: SUBJECTIVE: Patient seen and examined OBJECTIVE: Medical coverage for Dr. Rivera denies pain, for surgical procedure/amputation with Dr Marti on Thursday Vital Signs Period Temp Pulse Resp BP Sys/Cruz Pulse Ox Last 24 Hr 97.8 F-98.4 F 74-81 18-18 108-138/60-77 98 GENERAL: The patient is awake, alert, and fully oriented, in no acute distress. disheveled HEAD: Normal with no signs of trauma. EYES: PERRL, extraocular movements intact, sclera anicteric, conjunctiva clear. No ptosis. ENT: Ears normal, nares patent, oropharynx clear without exudates, moist mucous membranes. NECK: Trachea midline, full range of motion, supple. LUNGS: Breath sounds equal, clear to auscultation bilaterally, no wheezes HEART: Regular rate and rhythm ABDOMEN: Soft, nontender, nondistended, normoactive bowel sounds, no guarding, no rebound, no hepatosplenomegaly, no masses. EXTREMITIES: left foot 3rd toe cellulitis, for amputation Thursday. Right leg shorter than right, congentital. uses prosthesis. PSYCH: Normal mood, normal affect. cooperative Laboratory Results - last 24 hr 10/29/18 10/29/18 10/30/18 16:39 22:09 06:16 POC Glucometer 134 105 123 Active Medications Generic Name Dose Route Start Last Admin Trade Name Freq PRN Reason Stop Dose Admin Acetaminophen 650 mg 10/26/18 02:32 Tylenol - PO Q6H PRN PAIN Collagenase 1 applic 10/27/18 10:00 10/30/18 10:37 Santyl - TP 1 applic DAILY [facility] Administration Heparin Sodium (Porcine) 5,000 unit 10/26/18 10:00 10/30/18 10:36 Heparin - SQ 5,000 unit BID [facility] Administration Ertapenem 1 gm/ Sodium 50 mls @ 100 mls/hr 10/27/18 10:00 10/30/18 10:36 Chloride IVPB 100 mls/hr DAILY [facility] Administration Vancomycin HCl 1,250 mg/ 250 mls @ 166.667 mls/hr 10/27/18 15:30 10/29/18 16: 52 Dextrose IVPB 166.667 mls/hr Q24H [facility] Administration Protocol Insulin Aspart 1 vial 10/26/18 07:00 10/30/18 06:18 Novolog Vial Sliding Scale - SQ Not Given ACHS [facility] Protocol Insulin Detemir 20 units 10/26/18 22:00 10/29/18 22:19 Levemir Vial SQ 20 unit HS [facility] Administration Metformin HCl 500 mg 10/26/18 07:00 10/30/18 06:15 Glucophage - PO 500 mg BIDAC [facility] Administration Multivitamins/Minerals/Vitamin C 1 tab 10/26/18 10:00 10/30/18 10:36 Tab-A-Vit - PO 1 tab DAILY [facility] Administration Zcczo-4-Yxin Ethyl Esters 2 gm 10/26/18 10:00 10/30/18 10:36 Lovaza - PO 2 gm BID [facility] Administration Pantoprazole Sodium 40 mg 10/26/18 11:15 10/30/18 10:36 Protonix - PO 40 mg DAILY [facility] Administration Ramipril 2.5 mg 10/28/18 10:00 10/30/18 10:36 Altace - PO 2.5 mg DAILY [facility] Administration ASSESSMENT/PLAN: Patent is a 53 year old male with a significant past medical history of morbid obesity, HTN, hyperlipidemia, type 2 DM, ho was sent by Dr. Marti to the ED for treatment of left 3rd toe cellulitis. ID: Cellulitis of left 3rd toe ulcer with abscess and osteomyelitis On Ertapenem and Vanco per ID Wound care daily with Santyl Blood cultures with coag negative staph 1/2 bottles Patient for amputation of 3rd toe left foot on Thursday. ID following Endocrine Diabetes, type 2. bgms controlled. Continue Levemir, metformin, Novolog sliding scale maintain blood sugars <180 diabetic diet. Hypertension. controlled. On ramipril 2.5mg HLD. on Lovaza fen tolerating po monitor labs daily diabetic diet prophy heparin full code Visit type - Emergency Visit Emergency Visit: Yes ED Registration Date: 10/25/18 Care time: The patient presented to the Emergency Department on the above date and was hospitalized for further evaluation of their emergent condition. - New Patient This patient is new to me today: Yes Date on this admission: 10/30/18 - Critical Care Critical Care patient: No - Discharge Referral Referred to [facility] Med P.C.: No
--- NOTE | 2018-10-30 14:27 | PN ---
Progress Note, Physician History of Present Illness: doing well no complaints patient accepted amputation plan is for thursday - Current Medication List Current Medications: Active Medications Acetaminophen (Tylenol -) 650 mg PO Q6H PRN PRN Reason: PAIN Collagenase (Santyl -) 1 applic TP DAILY [facility] Last Admin: 10/30/18 10:37 Dose: 1 applic Heparin Sodium (Porcine) (Heparin -) 5,000 unit SQ BID [facility] Last Admin: 10/30/18 10:36 Dose: 5,000 unit Ertapenem 1 gm/ Sodium (Chloride) 50 mls @ 100 mls/hr IVPB DAILY [facility] Last Admin: 10/30/18 10:36 Dose: 100 mls/hr Vancomycin HCl 1,250 mg/ (Dextrose) 250 mls @ 166.667 mls/hr IVPB Q24H [facility]; Protocol Last Admin: 10/29/18 16:52 Dose: 166.667 mls/hr Insulin Aspart (Novolog Vial Sliding Scale -) 1 vial SQ [facility]; Protocol Last Admin: 10/30/18 12:58 Dose: Not Given Insulin Detemir (Levemir Vial) 20 units SQ HS [facility] Last Admin: 10/29/18 22:19 Dose: 20 unit Metformin HCl (Glucophage -) 500 mg PO BIDAC [facility] Last Admin: 10/30/18 06:15 Dose: 500 mg Multivitamins/Minerals/Vitamin C (Tab-A-Vit -) 1 tab PO DAILY [facility] Last Admin: 10/30/18 10:36 Dose: 1 tab Wqdan-5-Lgfo Ethyl Esters (Lovaza -) 2 gm PO BID [facility] Last Admin: 10/30/18 10:36 Dose: 2 gm Pantoprazole Sodium (Protonix -) 40 mg PO DAILY [facility] Last Admin: 10/30/18 10:36 Dose: 40 mg Ramipril (Altace -) 2.5 mg PO DAILY [facility] Last Admin: 10/30/18 10:36 Dose: 2.5 mg - Objective Vital Signs: Vital Signs Temperature 97.8 F 10/30/18 10:00 Pulse Rate 78 10/30/18 10:00 Respiratory Rate 18 10/30/18 10:00 Blood Pressure 134/77 10/30/18 10:00 O2 Sat by Pulse Oximetry (%) 98 10/30/18 09:00 Constitutional: Yes: No Distress, Calm, Obese Cardiovascular: Yes: Regular Rate and Rhythm Respiratory: Yes: Regular, CTA Bilaterally Gastrointestinal: Yes: Normal Bowel Sounds, Soft Musculoskeletal: Yes: WNL Extremities: Yes: WNL Wound/Incision: Yes: Dressing Dry and Intact Neurological: Yes: Alert, Oriented Psychiatric: Yes: Alert, Oriented Labs: CBC, BMP 10/29/18 06:30 10/29/18 06:30 INR, PTT INR 1.27 (0.83-1.09) H 10/25/18 19:11 Assessment/Plan Problem List - Problems (1) Diabetic foot ulcer Code(s): E11.621 - TYPE 2 DIABETES MELLITUS WITH FOOT ULCER; L97.509 - NON- PRESSURE CHRONIC ULCER OTH PRT UNSP FOOT W UNSP SEVERITY Qualifiers: (2) Diabetes Code(s): E11.9 - TYPE 2 DIABETES MELLITUS WITHOUT COMPLICATIONS (3) PVD (peripheral vascular disease) Code(s): I73.9 - PERIPHERAL VASCULAR DISEASE, UNSPECIFIED infection abscess of the toe plan we will continue abx plan for amputation of the toe
[2018-10-30] MEDS: VANCOMYCIN 1,250 MG in DEXTROSE 5%-WATER - 250 ML IVPB SCH (17:05)
[2018-10-30] MEDS: INSULIN (LEVEMIR) 100 UNITS/ML UNITS SQ SCH (21:52)
[2018-10-31] MEDS: metFORMIN HCL 500 MG TABLET (FP) PO SCH ×2 (06:18→16:05)
[2018-10-31] MEDS: INSULIN SLIDING SCALE (NOVOLOG) 1 VIAL SQ SCH ×4 (06:19→22:37)
[2018-10-31] MEDS ORDERED: PT OWN MED DRAWER 7, Y5N ONE ×2 (08:55→15:34)
[2018-10-31] MEDS: COLLAGENASE CLOSTRIDIUM HIST. 30 GRAMS TUBE TP SCH (09:55)
[2018-10-31] MEDS: PANTOPRAZOLE 40 MG TABLET (FP) PO SCH (09:55)
[2018-10-31] MEDS: HEPARIN NA (PORCINE) 5,000 UNITS/ML 1ML VIAL SQ SCH ×2 (09:55→22:11)
[2018-10-31] MEDS: RAMIPRIL 2.5 MG CAPSULE (FP) PO SCH (09:55)
[2018-10-31] MEDS: ERTAPENEM SODIUM 1 GM in SODIUM CHLORIDE 50 ML IVPB SCH (09:55)
[2018-10-31] MEDS: OMEGA-3 ACID ETHYL ESTERS (FATTY-ACIDS) 1 GM CAPSULE (FP) PO SCH ×2 (09:55→22:12)
[2018-10-31] MEDS: MULTIVITAMINS (DAILY MVI) TABLET (FP) PO SCH (09:55)
[2018-10-31] MEDS ORDERED: INSULIN (NOVOLOG) ASPART 100 UNITS/ML 10ML VIAL ONE (10:52)
[2018-10-31 11:00] LABS: BASO % 0.8 % (0-2.0); EOS % 5.2 % (0-4.5); HEMATOCRIT 33.9 % (35.4-49); HEMOGLOBIN 11.6 GM/dL (11.7-16.9); LYMPH % 9.1 % (8-40); MCHC 34.3 g/dl (32.0-35.9); MEAN CELL VOLUME 87.6 fl (80-96); MONO % 8.5 % (3.8-10.2); NEUT % 76.4 % (42.8-82.8); PLATELET COUNT 206 K/MM3 (134-434); RBC 3.87 M/mm3 (4.00-5.60); RDW 12.6 % (11.9-15.9); WHITE BLOOD COUNT 5.3 K/mm3 (4.0-10.0)
[2018-10-31 11:28] LABS: ALBUMIN 3.3 g/dl (3.4-5.0); ALK PHOS 101 U/L (45-117); ANION GAP 6 MMOL/L (8-16); BILIRUBIN,TOTAL 0.4 mg/dL (0.2-1); BLOOD UREA NITROGEN 18 mg/dL (7-18); CALCIUM 9.4 mg/dL (8.5-10.1); CHLORIDE 102 mmol/L (98-107); CO2 27 mmol/L (21-32); CREATININE 0.9 mg/dL (0.55-1.3); GLUCOSE,RANDOM 121 mg/dL (74-106); SGOT/AST 16 U/L (15-37); SGPT/ALT 19 U/L (13-61); SODIUM 136 mmol/L (136-145); TOT PROT 7.1 g/dl (6.4-8.2)
--- NOTE | 2018-10-31 11:59 | PN ---
Physical Exam: SUBJECTIVE: Patient seen and examined at the bedside. denies pain. OBJECTIVE: Vital Signs Period Temp Pulse Resp BP Sys/Cruz Pulse Ox Last 24 Hr 97.5 F-98.7 F 72-76 18-20 111-137/59-76 96 GENERAL: The patient is awake, alert, and fully oriented, in no acute distress. disheveled HEAD: Normal with no signs of trauma. EYES: PERRL, extraocular movements intact, sclera anicteric, conjunctiva clear. No ptosis. ENT: Ears normal, nares patent, oropharynx clear without exudates, moist mucous membranes. NECK: Trachea midline, full range of motion, supple. LUNGS: Breath sounds equal, clear to auscultation bilaterally, no wheezes HEART: Regular rate and rhythm ABDOMEN: Soft, nontender, nondistended, normoactive bowel sounds, no guarding, no rebound, no hepatosplenomegaly, no masses. EXTREMITIES: left foot 3rd toe cellulitis, for amputation Thursday. Right leg shorter than right, congentital. uses prosthesis. PSYCH: Normal mood, normal affect. cooperative Laboratory Results - last 24 hr 10/30/18 10/30/18 10/30/18 12:35 15:00 17:28 WBC RBC Hgb Hct MCV MCH MCHC RDW Plt Count MPV Absolute Neuts (auto) Neutrophils % Lymphocytes % Monocytes % Eosinophils % Basophils % Nucleated RBC % Sodium Potassium Chloride Carbon Dioxide Anion Gap BUN Creatinine Creat Clearance w eGFR POC Glucometer 135 128 Random Glucose Calcium Total Bilirubin AST ALT Alkaline Phosphatase Total Protein Albumin Vancomycin Pre-Dose 6.2 L 10/30/18 10/31/18 10/31/18 21:40 06:08 10:10 WBC 5.3 RBC 3.87 L Hgb 11.6 L Hct 33.9 L MCV 87.6 MCH 30.0 MCHC 34.3 RDW 12.6 Plt Count 206 MPV 8.0 Absolute Neuts (auto) 4.0 Neutrophils % 76.4 Lymphocytes % 9.1 Monocytes % 8.5 Eosinophils % 5.2 H Basophils % 0.8 Nucleated RBC % 0 Sodium Potassium Chloride Carbon Dioxide Anion Gap BUN Creatinine Creat Clearance w eGFR POC Glucometer 191 92 Random Glucose Calcium Total Bilirubin AST ALT Alkaline Phosphatase Total Protein Albumin Vancomycin Pre-Dose 10/31/18 10/31/18 10:10 11:00 WBC RBC Hgb Hct MCV MCH MCHC RDW Plt Count MPV Absolute Neuts (auto) Neutrophils % Lymphocytes % Monocytes % Eosinophils % Basophils % Nucleated RBC % Sodium 136 Potassium 5.0 Chloride 102 Carbon Dioxide 27 Anion Gap 6 L BUN 18 Creatinine 0.9 Creat Clearance w eGFR > 60 POC Glucometer 124 Random Glucose 121 H Calcium 9.4 Total Bilirubin 0.4 AST 16 ALT 19 Alkaline Phosphatase 101 Total Protein 7.1 Albumin 3.3 L Vancomycin Pre-Dose Active Medications Generic Name Dose Route Start Last Admin Trade Name Garth PRN Reason Stop Dose Admin Acetaminophen 650 mg 10/26/18 02:32 Tylenol - PO Q6H PRN PAIN Collagenase 1 applic 10/27/18 10:00 10/31/18 09:55 Santyl - TP 1 applic DAILY [facility] Administration Heparin Sodium (Porcine) 5,000 unit 10/26/18 10:00 10/31/18 09:55 Heparin - SQ 5,000 unit BID [facility] Administration Ertapenem 1 gm/ Sodium 50 mls @ 100 mls/hr 10/27/18 10:00 10/31/18 09:55 Chloride IVPB 100 mls/hr DAILY [facility] Administration Vancomycin HCl 1,250 mg/ 250 mls @ 166.667 mls/hr 10/27/18 15:30 10/30/18 17: 05 Dextrose IVPB 166.667 mls/hr Q24H [facility] Administration Protocol Insulin Aspart 1 vial 10/26/18 07:00 10/31/18 11:06 Novolog Vial Sliding Scale - SQ Not Given ACHS [facility] Protocol Insulin Detemir 20 units 10/26/18 22:00 10/30/18 21:52 Levemir Vial SQ 20 unit HS [facility] Administration Metformin HCl 500 mg 10/26/18 07:00 10/31/18 06:18 Glucophage - PO 500 mg BIDAC [facility] Administration Multivitamins/Minerals/Vitamin C 1 tab 10/26/18 10:00 10/31/18 09:55 Tab-A-Vit - PO 1 tab DAILY [facility] Administration Dxkwf-5-Ycgf Ethyl Esters 2 gm 10/26/18 10:00 10/31/18 09:55 Lovaza - PO 2 gm BID [facility] Administration Pantoprazole Sodium 40 mg 10/26/18 11:15 10/31/18 09:55 Protonix - PO 40 mg DAILY [facility] Administration Ramipril 2.5 mg 10/28/18 10:00 10/31/18 09:55 Altace - PO 2.5 mg DAILY [facility] Administration ASSESSMENT/PLAN: Patent is a 53 year old male with a significant past medical history of morbid obesity, HTN, hyperlipidemia, type 2 DM, ho was sent by Dr. Marti to the ED for treatment of left 3rd toe cellulitis. ID: Cellulitis of left 3rd toe ulcer with abscess and osteomyelitis On Ertapenem and Vanco per ID Wound care daily with Santyl and charlotte wrap. will order surgical shoe. Blood cultures with coag negative staph 1/2 bottles. wound culture with mrsa Patient for amputation of 3rd toe left foot on Thursday. NPO at midnight, hold heparin after midnight. Endocrine Diabetes, type 2. bgms controlled. Continue Levemir, metformin, Novolog sliding scale maintain blood sugars <180 diabetic diet. Hypertension. controlled. On ramipril 2.5mg follow up with cardiology outpatient HLD. on Lovaza fen tolerating po monitor labs daily diabetic diet prophy heparin full code Visit type - Emergency Visit Emergency Visit: Yes ED Registration Date: 10/25/18 Care time: The patient presented to the Emergency Department on the above date and was hospitalized for further evaluation of their emergent condition. - New Patient This patient is new to me today: No - Critical Care Critical Care patient: No - Discharge Referral Referred to [facility] Med P.C.: No
--- NOTE | 2018-10-31 12:07 | PN ---
Progress Note, Physician History of Present Illness: stable doing well no complaints - Current Medication List Current Medications: Active Medications Acetaminophen (Tylenol -) 650 mg PO Q6H PRN PRN Reason: PAIN Collagenase (Santyl -) 1 applic TP DAILY [facility] Last Admin: 10/31/18 09:55 Dose: 1 applic Heparin Sodium (Porcine) (Heparin -) 5,000 unit SQ BID [facility] Last Admin: 10/31/18 09:55 Dose: 5,000 unit Ertapenem 1 gm/ Sodium (Chloride) 50 mls @ 100 mls/hr IVPB DAILY [facility] Last Admin: 10/31/18 09:55 Dose: 100 mls/hr Vancomycin HCl 1,250 mg/ (Dextrose) 250 mls @ 166.667 mls/hr IVPB Q24H [facility]; Protocol Last Admin: 10/30/18 17:05 Dose: 166.667 mls/hr Insulin Aspart (Novolog Vial Sliding Scale -) 1 vial SQ [facility]; Protocol Last Admin: 10/31/18 11:06 Dose: Not Given Insulin Detemir (Levemir Vial) 20 units SQ HS [facility] Last Admin: 10/30/18 21:52 Dose: 20 unit Metformin HCl (Glucophage -) 500 mg PO BIDAC [facility] Last Admin: 10/31/18 06:18 Dose: 500 mg Multivitamins/Minerals/Vitamin C (Tab-A-Vit -) 1 tab PO DAILY [facility] Last Admin: 10/31/18 09:55 Dose: 1 tab Daiyh-5-Ntva Ethyl Esters (Lovaza -) 2 gm PO BID [facility] Last Admin: 10/31/18 09:55 Dose: 2 gm Pantoprazole Sodium (Protonix -) 40 mg PO DAILY [facility] Last Admin: 10/31/18 09:55 Dose: 40 mg Ramipril (Altace -) 2.5 mg PO DAILY [facility] Last Admin: 10/31/18 09:55 Dose: 2.5 mg - Objective Vital Signs: Vital Signs Temperature 97.5 F L 10/31/18 06:14 Pulse Rate 72 10/31/18 06:14 Respiratory Rate 18 10/31/18 06:14 Blood Pressure 137/76 10/31/18 06:14 O2 Sat by Pulse Oximetry (%) 96 10/30/18 21:00 Constitutional: Yes: No Distress, Calm Cardiovascular: Yes: Regular Rate and Rhythm Respiratory: Yes: Regular, CTA Bilaterally Gastrointestinal: Yes: Normal Bowel Sounds, Soft Musculoskeletal: Yes: WNL Extremities: Yes: Other Wound/Incision: Yes: Dressing Dry and Intact Neurological: Yes: Alert, Oriented Psychiatric: Yes: Alert, Oriented Labs: CBC, BMP 10/31/18 10:10 10/31/18 10:10 INR, PTT INR 1.27 (0.83-1.09) H 10/25/18 19:11 Assessment/Plan Problem List - Problems (1) Diabetic foot ulcer Code(s): E11.621 - TYPE 2 DIABETES MELLITUS WITH FOOT ULCER; L97.509 - NON- PRESSURE CHRONIC ULCER OTH PRT UNSP FOOT W UNSP SEVERITY Qualifiers: (2) Diabetes Code(s): E11.9 - TYPE 2 DIABETES MELLITUS WITHOUT COMPLICATIONS (3) PVD (peripheral vascular disease) Code(s): I73.9 - PERIPHERAL VASCULAR DISEASE, UNSPECIFIED infection abscess of the toe plan continue abx awaiting for surgery post op cx to be send rest as per the team
--- NOTE | 2018-10-31 13:30 | PN ---
Progress Note (short form) - Note Progress Note: FUV left foot. Patient has agreed to amputation of 3rd to +draining 3rd toe left, +improved cellulitis to 3rd mpj left, om, om cellulitis Continue IVABX. cristian mack. betadine dressing change. Consent given and witnessed. Understands fully all risks benefits and alternatives. NPO after midnight. Please maximize for OR.
[2018-10-31] MEDS: VANCOMYCIN 1,250 MG in DEXTROSE 5%-WATER - 250 ML IVPB SCH (16:05)
[2018-10-31] MEDS: INSULIN (LEVEMIR) 100 UNITS/ML UNITS SQ SCH (22:12)
[2018-11-01] MEDS ORDERED: LACTATED RINGERS SOLUTION 1,000 ML/1,000 ML INFUS.BAG IV SCH
[2018-11-01] MEDS: INSULIN SLIDING SCALE (NOVOLOG) 1 VIAL SQ SCH ×4 (06:03→22:20)
[2018-11-01] MEDS: metFORMIN HCL 500 MG TABLET (FP) PO SCH ×2 (06:04→16:27)
[2018-11-01] MEDS: ERTAPENEM SODIUM 1 GM in SODIUM CHLORIDE 50 ML IVPB SCH (09:04)
[2018-11-01] MEDS ORDERED: PROPOFOL 20 ML ONE (11:11)
[2018-11-01] MEDS ORDERED: MIDAZOLAM HCL 2 MG/2 ML SINGLE DOSE VIAL ONE (11:11)
[2018-11-01] MEDS ORDERED: PT OWN MED DRAWER 7, Y5N ONE (11:13)
[2018-11-01] MEDS: OMEGA-3 ACID ETHYL ESTERS (FATTY-ACIDS) 1 GM CAPSULE (FP) PO SCH ×2 (11:26→22:20)
[2018-11-01] MEDS: MULTIVITAMINS (DAILY MVI) TABLET (FP) PO SCH (11:26)
[2018-11-01] MEDS: PANTOPRAZOLE 40 MG TABLET (FP) PO SCH (11:26)
[2018-11-01] MEDS: RAMIPRIL 2.5 MG CAPSULE (FP) PO SCH (11:26)
[2018-11-01] MEDS ORDERED: LIDOCAINE HCL 1%, 10 MG/ML (20ML VIAL) ONE (11:29)
[2018-11-01] MEDS ORDERED: BUPIVACAINE HCL/PF 0.5% (5MG/ML) 10 ML VIAL ONE (11:30)
[2018-11-01] MEDS: COLLAGENASE CLOSTRIDIUM HIST. 30 GRAMS TUBE TP SCH (11:41)
[2018-11-01] MEDS ORDERED: BUPIVACAINE HCL/PF (5 MG/ML) 30 ML VIAL IJ ONE (11:57)
[2018-11-01] MEDS ORDERED: LIDOCAINE HCL 1%, 10 MG/ML (20ML VIAL) INF ONE (11:57)
[2018-11-01] MEDS ORDERED: BACITRACIN 50,000 UNITS VIAL TP ONE (12:15)
--- NOTE | 2018-11-01 12:47 | PN ---
Progress Note, Physician History of Present Illness: stable no complaints - Current Medication List Current Medications: Active Medications Acetaminophen (Tylenol -) 650 mg PO Q6H PRN PRN Reason: PAIN Collagenase (Santyl -) 1 applic TP DAILY [facility] Last Admin: 11/01/18 11:41 Dose: Not Given Heparin Sodium (Porcine) (Heparin -) 5,000 unit SQ BID [facility] Last Admin: 10/31/18 22:11 Dose: Not Given Ertapenem 1 gm/ Sodium (Chloride) 50 mls @ 100 mls/hr IVPB DAILY [facility] Last Admin: 11/01/18 09:04 Dose: 100 mls/hr Vancomycin HCl 1,250 mg/ (Dextrose) 250 mls @ 166.667 mls/hr IVPB Q24H [facility]; Protocol Last Admin: 10/31/18 16:05 Dose: 166.667 mls/hr Lactated Ringer's (Lactated Ringers Solution) 1,000 ml in 1,000 mls @ 75 mls/ hr IV ASDIR [facility] Last Admin: 10/31/18 23:49 Dose: 75 mls/hr Insulin Aspart (Novolog Vial Sliding Scale -) 1 vial SQ ACHS [facility]; Protocol Last Admin: 11/01/18 11:26 Dose: Not Given Insulin Detemir (Levemir Vial) 20 units SQ HS [facility] Last Admin: 10/31/18 22:12 Dose: Not Given Metformin HCl (Glucophage -) 500 mg PO BIDAC [facility] Last Admin: 11/01/18 06:04 Dose: Not Given Multivitamins/Minerals/Vitamin C (Tab-A-Vit -) 1 tab PO DAILY [facility] Last Admin: 11/01/18 11:26 Dose: Not Given Zwdov-3-Ymay Ethyl Esters (Lovaza -) 2 gm PO BID [facility] Last Admin: 11/01/18 11:26 Dose: Not Given Pantoprazole Sodium (Protonix -) 40 mg PO DAILY [facility] Last Admin: 11/01/18 11:26 Dose: Not Given Ramipril (Altace -) 2.5 mg PO DAILY [facility] Last Admin: 11/01/18 11:26 Dose: Not Given - Objective Vital Signs: Vital Signs Temperature 98.3 F 11/01/18 05:36 Pulse Rate 81 11/01/18 09:07 Respiratory Rate 20 11/01/18 09:07 Blood Pressure 107/67 11/01/18 09:07 O2 Sat by Pulse Oximetry (%) 96 10/31/18 21:00 Constitutional: Yes: No Distress, Calm Cardiovascular: Yes: Regular Rate and Rhythm Respiratory: Yes: Regular, CTA Bilaterally Gastrointestinal: Yes: Normal Bowel Sounds, Soft Musculoskeletal: Yes: WNL Extremities: Yes: Other Wound/Incision: Yes: Dressing Dry and Intact Neurological: Yes: Alert, Oriented Psychiatric: Yes: Alert, Oriented Labs: CBC, BMP 10/31/18 10:10 10/31/18 10:10 INR, PTT INR 1.27 (0.83-1.09) H 10/25/18 19:11 Assessment/Plan Problem List - Problems (1) Diabetic foot ulcer Code(s): E11.621 - TYPE 2 DIABETES MELLITUS WITH FOOT ULCER; L97.509 - NON- PRESSURE CHRONIC ULCER OTH PRT UNSP FOOT W UNSP SEVERITY Qualifiers: (2) Diabetes Code(s): E11.9 - TYPE 2 DIABETES MELLITUS WITHOUT COMPLICATIONS (3) PVD (peripheral vascular disease) Code(s): I73.9 - PERIPHERAL VASCULAR DISEASE, UNSPECIFIED infection abscess of the toe plan continue abx will await for final decision and cx wound care
[2018-11-01] MEDS ORDERED: ONDANSETRON 4 MG/2 ML VIAL IVPUSH PRN (13:06)
[2018-11-01] MEDS ORDERED: RAMIPRIL 2.5 MG CAPSULE (FP) PO ONE (13:45)
[2018-11-01] MEDS: VANCOMYCIN 1,250 MG in DEXTROSE 5%-WATER - 250 ML IVPB SCH (16:27)
[2018-11-01 16:42] VITALS: BMI 38.7
[2018-11-01 17:34] LABS: BASO % 0.7 % (0-2.0); EOS % 5.8 % (0-4.5); HEMATOCRIT 31.2 % (35.4-49); HEMOGLOBIN 10.8 GM/dL (11.7-16.9); LYMPH % 12.4 % (8-40); MCH 30.1 pg (25.7-33.7); MCHC 34.7 g/dl (32.0-35.9); MEAN CELL VOLUME 86.6 fl (80-96); MEAN PLT VOLUME 7.9 fl (7.5-11.1); MONO % 9.7 % (3.8-10.2); NEUT % 71.4 % (42.8-82.8); PLATELET COUNT 190 K/MM3 (134-434); RDW 12.5 % (11.9-15.9); WHITE BLOOD COUNT 4.7 K/mm3 (4.0-10.0)
--- NOTE | 2018-11-01 17:55 | PN ---
Physical Exam: SUBJECTIVE: Patient seen and examined at the bedside. in no acute distress. feels well. s/p left foot 3rd toe amputation. OBJECTIVE: Vital Signs Period Temp Pulse Resp BP Sys/Cruz Pulse Ox Last 24 Hr 97.9 F-98.6 F 68-81 16-20 107-158/59-84 93-98 GENERAL: The patient is awake, alert, and fully oriented, in no acute distress. disheveled HEAD: Normal with no signs of trauma. EYES: PERRL, extraocular movements intact, sclera anicteric, conjunctiva clear. No ptosis. ENT: Ears normal, nares patent, oropharynx clear without exudates, moist mucous membranes. NECK: Trachea midline, full range of motion, supple. LUNGS: Breath sounds equal, clear to auscultation bilaterally, no wheezes HEART: Regular rate and rhythm ABDOMEN: Soft, nontender, nondistended, normoactive bowel sounds, no guarding, no rebound, no hepatosplenomegaly, no masses. EXTREMITIES: left foot 3rd toe cellulitis, s/p amputation today. Right leg shorter than right, congentital. uses prosthesis. PSYCH: Normal mood, normal affect. cooperative Laboratory Results - last 24 hr 10/31/18 11/01/18 11/01/18 22:06 05:41 13:04 WBC RBC Hgb Hct MCV MCH MCHC RDW Plt Count MPV Absolute Neuts (auto) Neutrophils % Lymphocytes % Monocytes % Eosinophils % Basophils % Nucleated RBC % POC Glucometer 122 111 95 11/01/18 11/01/18 16:29 16:30 WBC 4.7 RBC 3.60 L Hgb 10.8 L Hct 31.2 L MCV 86.6 MCH 30.1 MCHC 34.7 RDW 12.5 Plt Count 190 MPV 7.9 Absolute Neuts (auto) 3.4 Neutrophils % 71.4 Lymphocytes % 12.4 D Monocytes % 9.7 Eosinophils % 5.8 H Basophils % 0.7 Nucleated RBC % 0 POC Glucometer 140 Active Medications Generic Name Dose Route Start Last Admin Trade Name Freq PRN Reason Stop Dose Admin Acetaminophen 650 mg 10/26/18 02:32 Tylenol - PO Q6H PRN PAIN Collagenase 1 applic 10/27/18 10:00 11/01/18 11:41 Santyl - TP Not Given DAILY [facility] Fentanyl 25 mcg 11/01/18 13:06 Sublimaze Injection - IVPUSH [id number] PRN PAIN-PACU ORDER X 4 DOSES ONLY Heparin Sodium (Porcine) 5,000 unit 10/26/18 10:00 10/31/18 22:11 Heparin - SQ Not Given BID [facility] Ertapenem 1 gm/ Sodium 50 mls @ 100 mls/hr 10/27/18 10:00 11/01/18 09:04 Chloride IVPB 100 mls/hr DAILY [facility] Administration Vancomycin HCl 1,250 mg/ 250 mls @ 166.667 mls/hr 10/27/18 15:30 11/01/18 16: 27 Dextrose IVPB 166.667 mls/hr Q24H [facility] Administration Protocol Lactated Ringer's 1,000 mls @ 75 mls/hr 11/01/18 13:15 Lactated Ringers Solution IV ASDIR [facility] Insulin Aspart 1 vial 10/26/18 07:00 11/01/18 17:06 Novolog Vial Sliding Scale - SQ Not Given ACHS [facility] Protocol Insulin Detemir 20 units 10/26/18 22:00 10/31/18 22:12 Levemir Vial SQ Not Given HS [facility] Metformin HCl 500 mg 10/26/18 07:00 11/01/18 16:27 Glucophage - PO 500 mg BIDAC [facility] Administration Multivitamins/Minerals/Vitamin C 1 tab 10/26/18 10:00 11/01/18 11:26 Tab-A-Vit - PO Not Given DAILY [facility] Wnvhq-5-Asmu Ethyl Esters 2 gm 10/26/18 10:00 11/01/18 11:26 Lovaza - PO Not Given BID [facility] Ondansetron HCl 4 mg 11/01/18 13:06 Zofran Injection IVPUSH Q6H PRN NAUSEA AND/OR VOMITING Pantoprazole Sodium 40 mg 10/26/18 11:15 11/01/18 11:26 Protonix - PO Not Given DAILY [facility] Ramipril 2.5 mg 10/28/18 10:00 11/01/18 11:26 Altace - PO Not Given DAILY [facility] ASSESSMENT/PLAN: Patent is a 53 year old male with a significant past medical history of morbid obesity, HTN, hyperlipidemia, type 2 DM, ho was sent by Dr. Marti to the ED for treatment of left 3rd toe cellulitis. ID: Cellulitis of left 3rd toe ulcer with abscess and osteomyelitis, s/p amputation of toe POD#0 On Ertapenem and Vanco per ID Blood cultures with coag negative staph 1/2 bottles. wound culture with mrsa Podiatry following Endocrine Diabetes, type 2. bgms controlled. Continue Levemir, metformin, Novolog sliding scale maintain blood sugars <180 diabetic diet. Hypertension. controlled. On ramipril 2.5mg follow up with cardiology outpatient HLD. on Lovaza fen tolerating po, LR per surgery monitor labs daily diabetic diet prophy heparin full code Visit type - Emergency Visit Emergency Visit: Yes ED Registration Date: 10/25/18 Care time: The patient presented to the Emergency Department on the above date and was hospitalized for further evaluation of their emergent condition. - New Patient This patient is new to me today: No - Critical Care Critical Care patient: No - Discharge Referral Referred to [facility] Med P.C.: No
[2018-11-01 18:01] LABS: INR 1.11 (0.83-1.09); PROTHROMBIN TIME (PATIENT) 13.1 SEC (9.7-13.0)
[2018-11-01 18:03] LABS: ALBUMIN 2.9 g/dl (3.4-5.0); ALK PHOS 98 U/L (45-117); ANION GAP 6 MMOL/L (8-16); BILIRUBIN,TOTAL 0.4 mg/dL (0.2-1); BLOOD UREA NITROGEN 16 mg/dL (7-18); CALCIUM 8.8 mg/dL (8.5-10.1); CHLORIDE 104 mmol/L (98-107); CO2 30 mmol/L (21-32); GLUCOSE,RANDOM 152 mg/dL (74-106); MAGNESIUM 1.5 mg/dL (1.8-2.4); POTASSIUM 4.9 mmol/L (3.5-5.1); SGOT/AST 17 U/L (15-37); SGPT/ALT 21 U/L (13-61); SODIUM 139 mmol/L (136-145); TOT PROT 6.3 g/dl (6.4-8.2)
[2018-11-01] MEDS ORDERED: MAGNESIUM OXIDE 400 MG TABLET (FP) PO ONE (18:04)
[2018-11-01] MEDS: LACTATED RINGERS SOLUTION 1,000 ML IV SCH (18:52)
[2018-11-01] MEDS ORDERED: INSULIN (NOVOLOG) ASPART 100 UNITS/ML 10ML VIAL ONE (21:40)
[2018-11-01] MEDS: INSULIN (LEVEMIR) 100 UNITS/ML UNITS SQ SCH (22:21)
[2018-11-02] MEDS: INSULIN SLIDING SCALE (NOVOLOG) 1 VIAL SQ SCH ×4 (06:09→22:37)
[2018-11-02] MEDS: metFORMIN HCL 500 MG TABLET (FP) PO SCH ×2 (06:09→17:36)
[2018-11-02] MEDS: MULTIVITAMINS (DAILY MVI) TABLET (FP) PO SCH (10:15)
[2018-11-02] MEDS: OMEGA-3 ACID ETHYL ESTERS (FATTY-ACIDS) 1 GM CAPSULE (FP) PO SCH ×2 (10:15→22:37)
[2018-11-02] MEDS: RAMIPRIL 2.5 MG CAPSULE (FP) PO SCH (10:15)
[2018-11-02] MEDS: PANTOPRAZOLE 40 MG TABLET (FP) PO SCH (10:15)
[2018-11-02] MEDS: ERTAPENEM SODIUM 1 GM in SODIUM CHLORIDE 50 ML IVPB SCH (10:17)
[2018-11-02 10:26] LABS: BASO % 0.4 % (0-2.0); HEMATOCRIT 32.9 % (35.4-49); HEMOGLOBIN 11.6 GM/dL (11.7-16.9); LYMPH % 8.6 % (8-40); MCH 30.8 pg (25.7-33.7); MCHC 35.3 g/dl (32.0-35.9); MEAN CELL VOLUME 87.1 fl (80-96); MEAN PLT VOLUME 7.9 fl (7.5-11.1); MONO % 7.1 % (3.8-10.2); NEUT % 78.9 % (42.8-82.8); PLATELET COUNT 198 K/MM3 (134-434); RBC 3.77 M/mm3 (4.00-5.60); RDW 12.6 % (11.9-15.9); WHITE BLOOD COUNT 5.9 K/mm3 (4.0-10.0)
[2018-11-02 11:08] LABS: ALK PHOS 101 U/L (45-117); ANION GAP 5 MMOL/L (8-16); BILIRUBIN,TOTAL 0.4 mg/dL (0.2-1); BLOOD UREA NITROGEN 16 mg/dL (7-18); CALCIUM 8.9 mg/dL (8.5-10.1); CHLORIDE 104 mmol/L (98-107); CO2 29 mmol/L (21-32); CREATININE 0.9 mg/dL (0.55-1.3); GLUCOSE,RANDOM 156 mg/dL (74-106); MAGNESIUM 1.5 mg/dL (1.8-2.4); POTASSIUM 4.6 mmol/L (3.5-5.1); SGOT/AST 16 U/L (15-37); SGPT/ALT 20 U/L (13-61); SODIUM 138 mmol/L (136-145); TOT PROT 6.5 g/dl (6.4-8.2)
--- NOTE | 2018-11-02 14:09 | PN ---
Progress Note, Physician History of Present Illness: stable no issues - Current Medication List Current Medications: Active Medications Fentanyl (Sublimaze Injection -) 25 mcg IVPUSH [id number] PRN PRN Reason: PAIN-PACU ORDER X 4 DOSES ONLY Lactated Ringer's (Lactated Ringers Solution) 1,000 mls @ 75 mls/hr IV ASDIR [facility] Last Admin: 11/01/18 18:52 Dose: Not Given Ertapenem 1 gm/ Sodium (Chloride) 50 mls @ 100 mls/hr IVPB DAILY [facility] Last Admin: 11/02/18 10:17 Dose: 100 mls/hr Vancomycin HCl 1,250 mg/ (Dextrose) 250 mls @ 150 mls/hr IVPB DAILY@1530 [facility]; Protocol Insulin Aspart (Novolog Vial Sliding Scale -) 1 vial SQ ACHS [facility]; Protocol Last Admin: 11/02/18 12:29 Dose: Not Given Insulin Detemir (Levemir Vial) 20 units SQ HS [facility] Last Admin: 11/01/18 22:21 Dose: 20 units Metformin HCl (Glucophage -) 500 mg PO BIDAC [facility] Last Admin: 11/02/18 06:09 Dose: 500 mg Multivitamins/Minerals/Vitamin C (Tab-A-Vit -) 1 tab PO DAILY [facility] Last Admin: 11/02/18 10:15 Dose: 1 tab Hhuxz-1-Ojps Ethyl Esters (Lovaza -) 2 gm PO BID [facility] Last Admin: 11/02/18 10:15 Dose: 2 gm Ondansetron HCl (Zofran Injection) 4 mg IVPUSH Q6H PRN PRN Reason: NAUSEA AND/OR VOMITING Pantoprazole Sodium (Protonix -) 40 mg PO DAILY [facility] Last Admin: 11/02/18 10:15 Dose: 40 mg Ramipril (Altace -) 2.5 mg PO DAILY [facility] Last Admin: 11/02/18 10:15 Dose: 2.5 mg - Objective Vital Signs: Vital Signs Temperature 98.1 F 11/02/18 09:01 Pulse Rate 81 11/02/18 09:01 Respiratory Rate 17 11/02/18 09:01 Blood Pressure 132/72 11/02/18 09:01 O2 Sat by Pulse Oximetry (%) 98 11/01/18 21:00 Constitutional: Yes: No Distress, Calm Cardiovascular: Yes: Regular Rate and Rhythm Respiratory: Yes: Regular, CTA Bilaterally Musculoskeletal: Yes: WNL Extremities: Yes: Other Wound/Incision: Yes: Dressing Dry and Intact Neurological: Yes: Alert, Oriented Psychiatric: Yes: Alert, Oriented Labs: CBC, BMP 11/02/18 10:05 11/02/18 10:05 INR, PTT INR 1.11 (0.83-1.09) H 11/01/18 16:30 Assessment/Plan Problem List - Problems (1) Diabetic foot ulcer Code(s): E11.621 - TYPE 2 DIABETES MELLITUS WITH FOOT ULCER; L97.509 - NON- PRESSURE CHRONIC ULCER OTH PRT UNSP FOOT W UNSP SEVERITY Qualifiers: (2) Diabetes Code(s): E11.9 - TYPE 2 DIABETES MELLITUS WITHOUT COMPLICATIONS (3) PVD (peripheral vascular disease) Code(s): I73.9 - PERIPHERAL VASCULAR DISEASE, UNSPECIFIED infection abscess of the toe plan continue abx await for findings and cx wound care
--- NOTE | 2018-11-02 15:45 | PN ---
Progress Note (short form) - Note Progress Note: FUV left foot. POD#1. No pain. +clean dry dressing, wbc=5.9 om cellulitis normal post op Continue IVABX. Will follow. Dressing change .
[2018-11-02] MEDS ORDERED: PT OWN MED DRAWER 7, Y5N ONE ×2 (16:48→17:08)
[2018-11-02] MEDS: LACTATED RINGERS SOLUTION 1,000 ML IV SCH (17:36)
[2018-11-02] MEDS: VANCOMYCIN 1,250 MG in DEXTROSE 5%-WATER - 250 ML IVPB SCH (17:36)
--- NOTE | 2018-11-02 19:22 | PN ---
Progress Note, Physician History of Present Illness: 24HR Events: -pt remains stable s/p Left foot 3rd toe amputation - Current Medication List Current Medications: Active Medications Fentanyl (Sublimaze Injection -) 25 mcg IVPUSH [id number] PRN PRN Reason: PAIN-PACU ORDER X 4 DOSES ONLY Lactated Ringer's (Lactated Ringers Solution) 1,000 mls @ 75 mls/hr IV ASDIR [facility] Last Admin: 11/02/18 17:36 Dose: Not Given Ertapenem 1 gm/ Sodium (Chloride) 50 mls @ 100 mls/hr IVPB DAILY [facility] Last Admin: 11/02/18 10:17 Dose: 100 mls/hr Vancomycin HCl 1,250 mg/ (Dextrose) 250 mls @ 150 mls/hr IVPB DAILY@1530 [facility]; Protocol Last Admin: 11/02/18 17:36 Dose: 150 mls/hr Insulin Aspart (Novolog Vial Sliding Scale -) 1 vial SQ [facility]; Protocol Last Admin: 11/02/18 17:50 Dose: Not Given Insulin Detemir (Levemir Vial) 20 units SQ HS [facility] Last Admin: 11/01/18 22:21 Dose: 20 units Metformin HCl (Glucophage -) 500 mg PO BIDAC [facility] Last Admin: 11/02/18 17:36 Dose: 500 mg Multivitamins/Minerals/Vitamin C (Tab-A-Vit -) 1 tab PO DAILY [facility] Last Admin: 11/02/18 10:15 Dose: 1 tab Efemt-2-Amcu Ethyl Esters (Lovaza -) 2 gm PO BID [facility] Last Admin: 11/02/18 10:15 Dose: 2 gm Ondansetron HCl (Zofran Injection) 4 mg IVPUSH Q6H PRN PRN Reason: NAUSEA AND/OR VOMITING Pantoprazole Sodium (Protonix -) 40 mg PO DAILY [facility] Last Admin: 11/02/18 10:15 Dose: 40 mg Ramipril (Altace -) 2.5 mg PO DAILY [facility] Last Admin: 11/02/18 10:15 Dose: 2.5 mg - Objective Vital Signs: Vital Signs Temperature 97.8 F 11/02/18 16:01 Pulse Rate 84 11/02/18 16:01 Respiratory Rate 20 11/02/18 16:01 Blood Pressure 152/83 11/02/18 16:01 O2 Sat by Pulse Oximetry (%) 98 11/01/18 21:00 Constitutional: Yes: Well Nourished, No Distress, Calm Eyes: Yes: Conjunctiva Clear, PERRL HENT: Yes: Atraumatic, Normocephalic Neck: Yes: Supple, Trachea Midline Cardiovascular: Yes: Regular Rate and Rhythm Respiratory: Yes: Regular, Cough, Wheezes (scattered) Gastrointestinal: Yes: Normal Bowel Sounds, Soft ...Rectal Exam: Yes: Deferred Musculoskeletal: Yes: Muscle Weakness Extremities: Yes: Shortened (RLE) Edema: Yes Edema: LLE: 1+ Peripheral Pulses: Left Radial: 2+, Right Radial: 2+ Integumentary: Yes: Venous Stasis Changes Wound/Incision: Yes: Clean/Dry (Left foot) Neurological: Yes: Alert, Oriented Psychiatric: Yes: Alert, Oriented Labs: CBC, BMP 11/02/18 10:05 11/02/18 10:05 INR, PTT INR 1.11 (0.83-1.09) H 11/01/18 16:30 Problem List - Problems (1) Status post amputation Assessment/Plan: pt followed by vasc surg pain control post L 3rd toe amputation with fentanyl Cellulitis of left 3rd toe ulcer with abscess and osteomyelitis: On Ertapenem and Vanco per ID Elevated LLE extremities Code(s): Z89.9 - ACQUIRED ABSENCE OF LIMB, UNSPECIFIED (2) HTN (hypertension) Assessment/Plan: On ramipril 2.5mg cardiac diet Code(s): I10 - ESSENTIAL (PRIMARY) HYPERTENSION (3) Prophylactic measure Assessment/Plan: SC heparin Code(s): Z29.9 - ENCOUNTER FOR PROPHYLACTIC MEASURES, UNSPECIFIED (4) Diabetes Assessment/Plan: continue metformin, levemir and novolog sliding scale diabetic diet Code(s): E11.9 - TYPE 2 DIABETES MELLITUS WITHOUT COMPLICATIONS (5) Diabetic foot ulcer Code(s): E11.621 - TYPE 2 DIABETES MELLITUS WITH FOOT ULCER; L97.509 - NON- PRESSURE CHRONIC ULCER OTH PRT UNSP FOOT W UNSP SEVERITY Qualifiers: (6) Diabetic peripheral vascular disease Code(s): E11.51 - TYPE 2 DIABETES W DIABETIC PERIPHERAL ANGIOPATH W/O GANGRENE (7) Congenital dysplasia of right hip Code(s): Q65.89 - OTHER SPECIFIED CONGENITAL DEFORMITIES OF HIP Impression/Plan Impression/Plan: Full code Visit type - Emergency Visit Emergency Visit: Yes ED Registration Date: 10/25/18 Care time: The patient presented to the Emergency Department on the above date and was hospitalized for further evaluation of their emergent condition. - New Patient This patient is new to me today: Yes Date on this admission: 11/02/18 - Critical Care Critical Care patient: No - Discharge Referral Referred to [facility] Med [facility] No
[2018-11-02] MEDS ORDERED: MAGNESIUM SULF 50% (8.12 MEQ/2 ML-1 GM VIAL) IVPB ONE (19:45)
[2018-11-02] MEDS: INSULIN (LEVEMIR) 100 UNITS/ML UNITS SQ SCH (22:37)
[2018-11-03] MEDS: metFORMIN HCL 500 MG TABLET (FP) PO SCH ×2 (06:07→16:44)
[2018-11-03] MEDS: INSULIN SLIDING SCALE (NOVOLOG) 1 VIAL SQ SCH ×4 (06:07→22:01)
[2018-11-03 07:27] LABS: HEMATOCRIT 31.4 % (35.4-49); MCH 30.3 pg (25.7-33.7); MCHC 34.9 g/dl (32.0-35.9); MEAN CELL VOLUME 86.8 fl (80-96); MEAN PLT VOLUME 7.8 fl (7.5-11.1); PLATELET COUNT 194 K/MM3 (134-434); RBC 3.62 M/mm3 (4.00-5.60); RDW 12.8 % (11.9-15.9); WHITE BLOOD COUNT 5.8 K/mm3 (4.0-10.0)
[2018-11-03 07:55] LABS: ALK PHOS 101 U/L (45-117); ANION GAP 4 MMOL/L (8-16); BILIRUBIN,TOTAL 0.3 mg/dL (0.2-1); BLOOD UREA NITROGEN 17 mg/dL (7-18); CALCIUM 9.1 mg/dL (8.5-10.1); CHLORIDE 102 mmol/L (98-107); CO2 31 mmol/L (21-32); CREATININE 0.9 mg/dL (0.55-1.3); GLUCOSE,RANDOM 136 mg/dL (74-106); MAGNESIUM 1.6 mg/dL (1.8-2.4); POTASSIUM 4.9 mmol/L (3.5-5.1); SGOT/AST 16 U/L (15-37); SGPT/ALT 18 U/L (13-61); SODIUM 137 mmol/L (136-145); TOT PROT 6.6 g/dl (6.4-8.2)
[2018-11-03] MEDS: OMEGA-3 ACID ETHYL ESTERS (FATTY-ACIDS) 1 GM CAPSULE (FP) PO SCH ×2 (09:53→22:00)
[2018-11-03] MEDS: RAMIPRIL 2.5 MG CAPSULE (FP) PO SCH (09:53)
[2018-11-03] MEDS: PANTOPRAZOLE 40 MG TABLET (FP) PO SCH (09:54)
[2018-11-03] MEDS: MULTIVITAMINS (DAILY MVI) TABLET (FP) PO SCH (09:54)
[2018-11-03] MEDS: ERTAPENEM SODIUM 1 GM in SODIUM CHLORIDE 50 ML IVPB SCH (09:54)
--- NOTE | 2018-11-03 12:58 | PN ---
Progress Note, Physician History of Present Illness: doing well no issues dressing will be changed today by the podiatry team - Current Medication List Current Medications: Active Medications Fentanyl (Sublimaze Injection -) 25 mcg IVPUSH [id number] PRN PRN Reason: PAIN-PACU ORDER X 4 DOSES ONLY Lactated Ringer's (Lactated Ringers Solution) 1,000 mls @ 75 mls/hr IV ASDIR [facility] Last Admin: 11/02/18 17:36 Dose: Not Given Ertapenem 1 gm/ Sodium (Chloride) 50 mls @ 100 mls/hr IVPB DAILY [facility] Last Admin: 11/03/18 09:54 Dose: 100 mls/hr Vancomycin HCl 1,250 mg/ (Dextrose) 250 mls @ 150 mls/hr IVPB DAILY@1530 [facility]; Protocol Last Admin: 11/02/18 17:36 Dose: 150 mls/hr Insulin Aspart (Novolog Vial Sliding Scale -) 1 vial SQ [facility]; Protocol Last Admin: 11/03/18 11:13 Dose: Not Given Insulin Detemir (Levemir Vial) 20 units SQ HS [facility] Last Admin: 11/02/18 22:37 Dose: 20 units Metformin HCl (Glucophage -) 500 mg PO BIDAC [facility] Last Admin: 11/03/18 06:07 Dose: 500 mg Multivitamins/Minerals/Vitamin C (Tab-A-Vit -) 1 tab PO DAILY [facility] Last Admin: 11/03/18 09:54 Dose: 1 tab Nqydi-5-Erui Ethyl Esters (Lovaza -) 2 gm PO BID [facility] Last Admin: 11/03/18 09:53 Dose: 2 gm Ondansetron HCl (Zofran Injection) 4 mg IVPUSH Q6H PRN PRN Reason: NAUSEA AND/OR VOMITING Pantoprazole Sodium (Protonix -) 40 mg PO DAILY [facility] Last Admin: 11/03/18 09:54 Dose: 40 mg Ramipril (Altace -) 2.5 mg PO DAILY [facility] Last Admin: 11/03/18 09:53 Dose: 2.5 mg - Objective Vital Signs: Vital Signs Temperature 98.6 F 11/03/18 10:00 Pulse Rate 80 11/03/18 10:00 Respiratory Rate 18 11/03/18 10:00 Blood Pressure 112/69 11/03/18 10:00 O2 Sat by Pulse Oximetry (%) 98 11/03/18 09:00 Constitutional: Yes: No Distress, Calm Cardiovascular: Yes: Regular Rate and Rhythm Respiratory: Yes: Regular, CTA Bilaterally Gastrointestinal: Yes: Normal Bowel Sounds, Soft Musculoskeletal: Yes: WNL Extremities: Yes: Other Wound/Incision: Yes: Dressing Dry and Intact Neurological: Yes: Alert, Oriented Psychiatric: Yes: Alert, Oriented Labs: CBC, BMP 11/03/18 06:20 11/03/18 06:20 INR, PTT INR 1.11 (0.83-1.09) H 11/01/18 16:30 Assessment/Plan Problem List - Problems (1) Diabetic foot ulcer Code(s): E11.621 - TYPE 2 DIABETES MELLITUS WITH FOOT ULCER; L97.509 - NON- PRESSURE CHRONIC ULCER OTH PRT UNSP FOOT W UNSP SEVERITY Qualifiers: (2) Diabetes Code(s): E11.9 - TYPE 2 DIABETES MELLITUS WITHOUT COMPLICATIONS (3) PVD (peripheral vascular disease) Code(s): I73.9 - PERIPHERAL VASCULAR DISEASE, UNSPECIFIED infection abscess of the toe plan continue abx await for findings and cx and identification of the organism wound care d/w with podiatry if it is the bone margins which are positive rest as per the team
--- NOTE | 2018-11-03 15:01 | PATH ---
Surgical Pathology Report Patient Name: SJ EASON [facility]. Rec. #: [id number] /Age/Gender: 1965 (Age: 53) / M Account: [id number] Location: [facility]/SURG Taken: 11/01/2018 Received: 11/02/2018 Reported: 11/03/2018 Physicians: YAS Dubose M.D. Specimen(s) Received A: PROXIMAL PHALANX DISTAL TOE B: CLEAN MARGIN 3RD TOE Clinical History Left diabetic foot ulcer, gangrene left toe Final Diagnosis A. PROXIMAL PHALANX, DISTAL TOE, CLEAN, MARGIN, AMPUTATION: DIGIT WITH MARKED ACUTE AND CHRONIC GANGRENOUS INFLAMMATION, ASSOCIATED ULCERATION, AND SEVERE ACUTE OSTEOMYELITIS. BONE MARGIN SHOWS FOCAL MILD ACUTE OSTEOMYELITIS. SKIN AND SOFT TISSUE MARGINS ARE VIABLE. B. THIRD TOE, CLEAN MARGIN, EXCISION: PORTION OF BONE WITHOUT SIGNIFICANT PATHOLOGIC FINDINGS. NO ACUTE OSTEOMYELITIS IDENTIFIED. Electronically Signed Shanae Lyn M.D. Gross Description A. Received in formalin labeled "proximal phalanx-clean margin distal toe," is a 4.0 x 2.3 x 2.1 cm toe amputation specimen. The distal aspect displays a 2.0 x 2.0 cm ulcerated, gangrenous lesion extending to and involving the underlying bone. The skin and soft tissue margin appear clear of the lesion. Contact Centre Supervisor sections are submitted in 3 cassettes as follows: 1-lesion with underlying bone, following decalcification; 2-bone margin, following decalcification; 3-skin and soft tissue margin. B. Received in formalin labeled "clean margin third toe," is a 1.7 x 1.2 x 1.1 cm bermudez portion of bone. A full thickness section is submitted in one cassette, following decalcification. /11/02/201811/02/2018
[2018-11-03] MEDS: VANCOMYCIN 1,250 MG in DEXTROSE 5%-WATER - 250 ML IVPB SCH (15:10)
[2018-11-03] MEDS: LACTATED RINGERS SOLUTION 1,000 ML IV SCH (15:10)
[2018-11-03] MEDS: INSULIN (LEVEMIR) 100 UNITS/ML UNITS SQ SCH (22:01)
--- NOTE | 2018-11-03 23:37 | PN ---
Progress Note, Physician History of Present Illness: No new complaints - Current Medication List Current Medications: Active Medications Fentanyl (Sublimaze Injection -) 25 mcg IVPUSH [id number] PRN PRN Reason: PAIN-PACU ORDER X 4 DOSES ONLY Lactated Ringer's (Lactated Ringers Solution) 1,000 mls @ 75 mls/hr IV ASDIR [facility] Last Admin: 11/03/18 15:10 Dose: Not Given Ertapenem 1 gm/ Sodium (Chloride) 50 mls @ 100 mls/hr IVPB DAILY [facility] Last Admin: 11/03/18 09:54 Dose: 100 mls/hr Vancomycin HCl 1,250 mg/ (Dextrose) 250 mls @ 150 mls/hr IVPB DAILY@1530 [facility]; Protocol Last Admin: 11/03/18 15:10 Dose: 150 mls/hr Insulin Aspart (Novolog Vial Sliding Scale -) 1 vial SQ ACHS [facility]; Protocol Last Admin: 11/03/18 22:01 Dose: Not Given Insulin Detemir (Levemir Vial) 20 units SQ HS [facility] Last Admin: 11/03/18 22:01 Dose: Not Given Metformin HCl (Glucophage -) 500 mg PO BIDAC [facility] Last Admin: 11/03/18 16:44 Dose: 500 mg Multivitamins/Minerals/Vitamin C (Tab-A-Vit -) 1 tab PO DAILY [facility] Last Admin: 11/03/18 09:54 Dose: 1 tab Zotwb-7-Ouhk Ethyl Esters (Lovaza -) 2 gm PO BID [facility] Last Admin: 11/03/18 22:00 Dose: 2 gm Ondansetron HCl (Zofran Injection) 4 mg IVPUSH Q6H PRN PRN Reason: NAUSEA AND/OR VOMITING Pantoprazole Sodium (Protonix -) 40 mg PO DAILY [facility] Last Admin: 11/03/18 09:54 Dose: 40 mg Ramipril (Altace -) 2.5 mg PO DAILY [facility] Last Admin: 11/03/18 09:53 Dose: 2.5 mg - Objective Vital Signs: Vital Signs Temperature 98.0 F 11/03/18 22:00 Pulse Rate 86 11/03/18 22:00 Respiratory Rate 20 11/03/18 22:00 Blood Pressure 138/78 11/03/18 22:00 O2 Sat by Pulse Oximetry (%) 98 11/03/18 21:00 Constitutional: Yes: Well Nourished Cardiovascular: Yes: WNL, Regular Rate and Rhythm Respiratory: Yes: WNL, Regular, CTA Bilaterally Gastrointestinal: Yes: WNL, Normal Bowel Sounds, Soft Extremities: Yes: Other (amputation lt3rd toe) Labs: CBC, BMP 11/03/18 06:20 11/03/18 06:20 INR, PTT INR 1.11 (0.83-1.09) H 11/01/18 16:30 Problem List - Problems (1) Diabetic foot ulcer Assessment/Plan: S/P amputation Lt 3rd toe Cont IV vanco Wound culture (+) MRSA/Proteus?enterococcus Awaiting final sensitivites Code(s): E11.621 - TYPE 2 DIABETES MELLITUS WITH FOOT ULCER; L97.509 - NON- PRESSURE CHRONIC ULCER OTH PRT UNSP FOOT W UNSP SEVERITY Qualifiers: (2) Diabetes Code(s): E11.9 - TYPE 2 DIABETES MELLITUS WITHOUT COMPLICATIONS (3) HTN (hypertension) Assessment/Plan: BP stable Cont ramipril Code(s): I10 - ESSENTIAL (PRIMARY) HYPERTENSION (4) HLD (hyperlipidemia) Assessment/Plan: Cont lovaza Code(s): E78.5 - HYPERLIPIDEMIA, UNSPECIFIED (5) PVD (peripheral vascular disease) Assessment/Plan: No intervention needed Code(s): I73.9 - PERIPHERAL VASCULAR DISEASE, UNSPECIFIED (6) Cough Assessment/Plan: Resolved Code(s): R05 - COUGH
[2018-11-04] MEDS: metFORMIN HCL 500 MG TABLET (FP) PO SCH ×2 (06:00→16:44)
[2018-11-04] MEDS: INSULIN SLIDING SCALE (NOVOLOG) 1 VIAL SQ SCH ×4 (06:01→22:23)
[2018-11-04] MEDS ORDERED: INSULIN (NOVOLOG) ASPART 100 UNITS/ML 10ML VIAL ONE (06:17)
--- NOTE | 2018-11-04 08:43 | PN ---
Progress Note (short form) - Note Progress Note: FUV left foot. POD#3. No pain. +clean dry dressing, wbc=5.8, +packing in place, +sutures intact, reviewed microbiology normal post op Continue IVABX. Packing pulled. Betadine dressing change. Will follow. Abx as per ID. Can be DC to home from Podiatry standpoint and be tx out patient with abx and wound care.
[2018-11-04] MEDS: ERTAPENEM SODIUM 1 GM in SODIUM CHLORIDE 50 ML IVPB SCH (10:13)
[2018-11-04] MEDS: RAMIPRIL 2.5 MG CAPSULE (FP) PO SCH (10:14)
[2018-11-04] MEDS: PANTOPRAZOLE 40 MG TABLET (FP) PO SCH (10:14)
[2018-11-04] MEDS: MULTIVITAMINS (DAILY MVI) TABLET (FP) PO SCH (10:14)
[2018-11-04] MEDS: OMEGA-3 ACID ETHYL ESTERS (FATTY-ACIDS) 1 GM CAPSULE (FP) PO SCH ×2 (10:14→22:24)
[2018-11-04] MEDS: LACTATED RINGERS SOLUTION 1,000 ML IV SCH (14:28)
[2018-11-04] MEDS: VANCOMYCIN 1,250 MG in DEXTROSE 5%-WATER - 250 ML IVPB SCH (14:34)
--- NOTE | 2018-11-04 15:59 | PN ---
Progress Note, Physician History of Present Illness: doing well no issues dressing present - Current Medication List Current Medications: Active Medications Fentanyl (Sublimaze Injection -) 25 mcg IVPUSH [id number] PRN PRN Reason: PAIN-PACU ORDER X 4 DOSES ONLY Lactated Ringer's (Lactated Ringers Solution) 1,000 mls @ 75 mls/hr IV ASDIR [facility] Last Admin: 11/04/18 14:28 Dose: Not Given Ertapenem 1 gm/ Sodium (Chloride) 50 mls @ 100 mls/hr IVPB DAILY [facility] Last Admin: 11/04/18 10:13 Dose: 100 mls/hr Vancomycin HCl 1,250 mg/ (Dextrose) 250 mls @ 150 mls/hr IVPB DAILY@1530 [facility]; Protocol Last Admin: 11/04/18 14:34 Dose: 150 mls/hr Insulin Aspart (Novolog Vial Sliding Scale -) 1 vial SQ ACHS [facility]; Protocol Last Admin: 11/04/18 11:14 Dose: 2 units Insulin Detemir (Levemir Vial) 20 units SQ HS [facility] Last Admin: 11/03/18 22:01 Dose: Not Given Metformin HCl (Glucophage -) 500 mg PO BIDAC [facility] Last Admin: 11/04/18 06:00 Dose: 500 mg Multivitamins/Minerals/Vitamin C (Tab-A-Vit -) 1 tab PO DAILY [facility] Last Admin: 11/04/18 10:14 Dose: 1 tab Jasnr-4-Xlju Ethyl Esters (Lovaza -) 2 gm PO BID [facility] Last Admin: 11/04/18 10:14 Dose: 2 gm Ondansetron HCl (Zofran Injection) 4 mg IVPUSH Q6H PRN PRN Reason: NAUSEA AND/OR VOMITING Pantoprazole Sodium (Protonix -) 40 mg PO DAILY [facility] Last Admin: 11/04/18 10:14 Dose: 40 mg Ramipril (Altace -) 2.5 mg PO DAILY [facility] Last Admin: 11/04/18 10:14 Dose: 2.5 mg - Objective Vital Signs: Vital Signs Temperature 98.3 F 11/04/18 15:00 Pulse Rate 72 11/04/18 15:00 Respiratory Rate 20 11/04/18 15:00 Blood Pressure 115/66 11/04/18 15:00 O2 Sat by Pulse Oximetry (%) 99 11/04/18 09:00 Constitutional: Yes: No Distress, Calm HENT: Yes: Atraumatic Neck: Yes: Supple, Trachea Midline Cardiovascular: Yes: Regular Rate and Rhythm Respiratory: Yes: Regular, CTA Bilaterally Gastrointestinal: Yes: Normal Bowel Sounds, Soft Musculoskeletal: Yes: WNL Extremities: Yes: WNL Wound/Incision: Yes: Dressing Dry and Intact Neurological: Yes: Alert, Oriented Psychiatric: Yes: Alert, Oriented Labs: CBC, BMP 11/03/18 06:20 11/03/18 06:20 INR, PTT INR 1.11 (0.83-1.09) H 11/01/18 16:30 Assessment/Plan Problem List - Problems (1) Diabetic foot ulcer Code(s): E11.621 - TYPE 2 DIABETES MELLITUS WITH FOOT ULCER; L97.509 - NON- PRESSURE CHRONIC ULCER OTH PRT UNSP FOOT W UNSP SEVERITY Qualifiers: (2) Diabetes Code(s): E11.9 - TYPE 2 DIABETES MELLITUS WITHOUT COMPLICATIONS (3) PVD (peripheral vascular disease) Code(s): I73.9 - PERIPHERAL VASCULAR DISEASE, UNSPECIFIED infection abscess of the toe plan continue abx awaiting for identification and sensitivities will stop ertapenam
[2018-11-04] MEDS: INSULIN (LEVEMIR) 100 UNITS/ML UNITS SQ SCH (22:23)
--- NOTE | 2018-11-04 23:17 | PN ---
Progress Note, Physician History of Present Illness: No new complaints - Current Medication List Current Medications: Active Medications Fentanyl (Sublimaze Injection -) 25 mcg IVPUSH [id number] PRN PRN Reason: PAIN-PACU ORDER X 4 DOSES ONLY Lactated Ringer's (Lactated Ringers Solution) 1,000 mls @ 75 mls/hr IV ASDIR [facility] Last Admin: 11/04/18 14:28 Dose: Not Given Ertapenem 1 gm/ Sodium (Chloride) 50 mls @ 100 mls/hr IVPB DAILY [facility] Last Admin: 11/04/18 10:13 Dose: 100 mls/hr Vancomycin HCl 1,250 mg/ (Dextrose) 250 mls @ 150 mls/hr IVPB DAILY@1530 [facility]; Protocol Last Admin: 11/04/18 14:34 Dose: 150 mls/hr Insulin Aspart (Novolog Vial Sliding Scale -) 1 vial SQ ACHS [facility]; Protocol Last Admin: 11/04/18 22:23 Dose: Not Given Insulin Detemir (Levemir Vial) 20 units SQ HS [facility] Last Admin: 11/04/18 22:23 Dose: 20 units Metformin HCl (Glucophage -) 500 mg PO BIDAC [facility] Last Admin: 11/04/18 16:44 Dose: 500 mg Multivitamins/Minerals/Vitamin C (Tab-A-Vit -) 1 tab PO DAILY [facility] Last Admin: 11/04/18 10:14 Dose: 1 tab Uorlf-3-Lxdj Ethyl Esters (Lovaza -) 2 gm PO BID [facility] Last Admin: 11/04/18 22:24 Dose: 2 gm Ondansetron HCl (Zofran Injection) 4 mg IVPUSH Q6H PRN PRN Reason: NAUSEA AND/OR VOMITING Pantoprazole Sodium (Protonix -) 40 mg PO DAILY [facility] Last Admin: 11/04/18 10:14 Dose: 40 mg Ramipril (Altace -) 2.5 mg PO DAILY [facility] Last Admin: 11/04/18 10:14 Dose: 2.5 mg - Objective Vital Signs: Vital Signs Temperature 97.5 F L 11/04/18 18:00 Pulse Rate 77 11/04/18 18:00 Respiratory Rate 20 11/04/18 18:00 Blood Pressure 151/77 11/04/18 18:00 O2 Sat by Pulse Oximetry (%) 99 11/04/18 09:00 Constitutional: Yes: Well Nourished Neck: Yes: WNL, Supple Cardiovascular: Yes: WNL Respiratory: Yes: WNL, Regular, CTA Bilaterally Gastrointestinal: Yes: WNL, Normal Bowel Sounds, Soft Extremities: Yes: Other (amputation lt 3rd toe) Labs: CBC, BMP 11/03/18 06:20 11/03/18 06:20 INR, PTT INR 1.11 (0.83-1.09) H 11/01/18 16:30 Problem List - Problems (1) Diabetic foot ulcer Assessment/Plan: S/P amputation Lt 3rd toe Cont IV vanco Wound culture (+) MRSA/Proteus?enterococcus Awaiting final sensitivites Code(s): E11.621 - TYPE 2 DIABETES MELLITUS WITH FOOT ULCER; L97.509 - NON- PRESSURE CHRONIC ULCER OTH PRT UNSP FOOT W UNSP SEVERITY Qualifiers: (2) Diabetes Assessment/Plan: Cont sliding scale w/ coverage Cont levemir/metformin Code(s): E11.9 - TYPE 2 DIABETES MELLITUS WITHOUT COMPLICATIONS (3) PVD (peripheral vascular disease) Assessment/Plan: No intervention needed Code(s): I73.9 - PERIPHERAL VASCULAR DISEASE, UNSPECIFIED (4) HLD (hyperlipidemia) Assessment/Plan: Cont lovaza Code(s): E78.5 - HYPERLIPIDEMIA, UNSPECIFIED (5) HTN (hypertension) Assessment/Plan: Cont ramipril Code(s): I10 - ESSENTIAL (PRIMARY) HYPERTENSION
[2018-11-05] MEDS: INSULIN SLIDING SCALE (NOVOLOG) 1 VIAL SQ SCH ×4 (06:41→22:17)
[2018-11-05] MEDS: metFORMIN HCL 500 MG TABLET (FP) PO SCH ×2 (06:41→16:47)
[2018-11-05] MEDS ORDERED: PT OWN MED DRAWER 7, Y5N ONE (10:26)
[2018-11-05] MEDS: PANTOPRAZOLE 40 MG TABLET (FP) PO SCH (10:32)
[2018-11-05] MEDS: RAMIPRIL 2.5 MG CAPSULE (FP) PO SCH (10:32)
[2018-11-05] MEDS: ERTAPENEM SODIUM 1 GM in SODIUM CHLORIDE 50 ML IVPB SCH (10:32)
[2018-11-05] MEDS: MULTIVITAMINS (DAILY MVI) TABLET (FP) PO SCH (10:33)
[2018-11-05] MEDS: OMEGA-3 ACID ETHYL ESTERS (FATTY-ACIDS) 1 GM CAPSULE (FP) PO SCH ×2 (10:36→22:16)
--- NOTE | 2018-11-05 12:27 | PN ---
Progress Note (short form) - Note Progress Note: FUV left foot. POD#4. No pain. +clean dry dressing, wbc=5.8, +sutures intact, normal post op Continue IVABX. Betadine dressing change. Will follow. Abx as per ID. Can be DC to home from Podiatry standpoint and be tx out patient with abx and wound care. Awaiting species and picc line.
[2018-11-05] MEDS: LACTATED RINGERS SOLUTION 1,000 ML IV SCH (14:17)
[2018-11-05] MEDS: VANCOMYCIN 1,250 MG in DEXTROSE 5%-WATER - 250 ML IVPB SCH (15:38)
[2018-11-05] MEDS: INSULIN (LEVEMIR) 100 UNITS/ML UNITS SQ SCH (22:17)
--- NOTE | 2018-11-05 22:27 | PN ---
Progress Note, Physician History of Present Illness: No new complaints - Current Medication List Current Medications: Active Medications Lactated Ringer's (Lactated Ringers Solution) 1,000 mls @ 75 mls/hr IV ASDIR [facility] Last Admin: 11/05/18 14:17 Dose: Not Given Vancomycin HCl 1,250 mg/ (Dextrose) 250 mls @ 150 mls/hr IVPB DAILY@1530 [facility]; Protocol Last Admin: 11/05/18 15:38 Dose: 150 mls/hr Insulin Aspart (Novolog Vial Sliding Scale -) 1 vial SQ [facility]; Protocol Last Admin: 11/05/18 22:17 Dose: Not Given Insulin Detemir (Levemir Vial) 20 units SQ HS [facility] Last Admin: 11/05/18 22:17 Dose: 20 units Metformin HCl (Glucophage -) 500 mg PO BIDAC [facility] Last Admin: 11/05/18 16:47 Dose: 500 mg Multivitamins/Minerals/Vitamin C (Tab-A-Vit -) 1 tab PO DAILY [facility] Last Admin: 11/05/18 10:33 Dose: 1 tab Wapmk-8-Vvwi Ethyl Esters (Lovaza -) 2 gm PO BID [facility] Last Admin: 11/05/18 22:16 Dose: 2 gm Ondansetron HCl (Zofran Injection) 4 mg IVPUSH Q6H PRN PRN Reason: NAUSEA AND/OR VOMITING Pantoprazole Sodium (Protonix -) 40 mg PO DAILY [facility] Last Admin: 11/05/18 10:32 Dose: 40 mg Ramipril (Altace -) 2.5 mg PO DAILY [facility] Last Admin: 11/05/18 10:32 Dose: 2.5 mg - Objective Vital Signs: Vital Signs Temperature 98.0 F 11/05/18 19:17 Pulse Rate 79 11/05/18 19:17 Respiratory Rate 20 11/05/18 19:17 Blood Pressure 128/67 11/05/18 19:17 O2 Sat by Pulse Oximetry (%) 96 11/05/18 09:00 Constitutional: Yes: Well Nourished Neck: Yes: WNL, Supple Cardiovascular: Yes: WNL, Regular Rate and Rhythm Respiratory: Yes: WNL, Regular, CTA Bilaterally Gastrointestinal: Yes: WNL, Normal Bowel Sounds, Soft Extremities: Yes: Other (Lt foot w/ dressing) Labs: CBC, BMP 11/03/18 06:20 11/03/18 06:20 INR, PTT INR 1.11 (0.83-1.09) H 11/01/18 16:30 Problem List - Problems (1) Diabetic foot ulcer Assessment/Plan: S/P amputation Lt 3rd toe Cont IV vanco Wound culture (+) MRSA/Proteus?enterococcus Awaiting final sensitivites Will need PCI line for another 4-6 weeks of IV antibx as per ID Code(s): E11.621 - TYPE 2 DIABETES MELLITUS WITH FOOT ULCER; L97.509 - NON- PRESSURE CHRONIC ULCER OTH PRT UNSP FOOT W UNSP SEVERITY Qualifiers: (2) Diabetes Assessment/Plan: Cont sliding scale w/ coverage Cont levemir/metformin Code(s): E11.9 - TYPE 2 DIABETES MELLITUS WITHOUT COMPLICATIONS (3) PVD (peripheral vascular disease) Assessment/Plan: No intervention needed Code(s): I73.9 - PERIPHERAL VASCULAR DISEASE, UNSPECIFIED (4) HTN (hypertension) Assessment/Plan: BP stable Cont ramipril Code(s): I10 - ESSENTIAL (PRIMARY) HYPERTENSION (5) HLD (hyperlipidemia) Assessment/Plan: Cont lovaza Code(s): E78.5 - HYPERLIPIDEMIA, UNSPECIFIED (6) Cough Assessment/Plan: Resolved Code(s): R05 - COUGH
[2018-11-06] MEDS: metFORMIN HCL 500 MG TABLET (FP) PO SCH ×2 (06:04→17:04)
[2018-11-06] MEDS: INSULIN SLIDING SCALE (NOVOLOG) 1 VIAL SQ SCH ×4 (06:10→21:35)
[2018-11-06 09:42] LABS: BASO % 0.6 % (0-2.0); EOS % 5.5 % (0-4.5); HEMOGLOBIN 11.5 GM/dL (11.7-16.9); LYMPH % 10.5 % (8-40); MCH 30.4 pg (25.7-33.7); MEAN CELL VOLUME 86.8 fl (80-96); MONO % 8.5 % (3.8-10.2); NEUT % 74.9 % (42.8-82.8); PLATELET COUNT 218 K/MM3 (134-434); RDW 12.6 % (11.9-15.9); WHITE BLOOD COUNT 5.8 K/mm3 (4.0-10.0)
[2018-11-06 10:39] LABS: ALK PHOS 115 U/L (45-117); ANION GAP 7 MMOL/L (8-16); BILIRUBIN,TOTAL 0.4 mg/dL (0.2-1); BLOOD UREA NITROGEN 26 mg/dL (7-18); CALCIUM 8.9 mg/dL (8.5-10.1); CHLORIDE 102 mmol/L (98-107); CO2 28 mmol/L (21-32); CREATININE 1.1 mg/dL (0.55-1.3); GLUCOSE,RANDOM 144 mg/dL (74-106); POTASSIUM 4.8 mmol/L (3.5-5.1); SGOT/AST 21 U/L (15-37); SGPT/ALT 21 U/L (13-61); SODIUM 136 mmol/L (136-145); TOT PROT 6.7 g/dl (6.4-8.2)
[2018-11-06] MEDS: OMEGA-3 ACID ETHYL ESTERS (FATTY-ACIDS) 1 GM CAPSULE (FP) PO SCH ×2 (10:49→21:36)
[2018-11-06] MEDS: MULTIVITAMINS (DAILY MVI) TABLET (FP) PO SCH (10:50)
[2018-11-06] MEDS: PANTOPRAZOLE 40 MG TABLET (FP) PO SCH (10:50)
[2018-11-06] MEDS: RAMIPRIL 2.5 MG CAPSULE (FP) PO SCH (10:50)
[2018-11-06] MEDS ORDERED: PT OWN MED DRAWER 7, Y5N ONE (14:20)
--- NOTE | 2018-11-06 15:46 | PN ---
Progress Note, Physician History of Present Illness: Pt seen and examined. Events reviewed. Currently patient denies pain in Lt foot and has no specific complaints. - Current Medication List Current Medications: Active Medications Vancomycin HCl 1,250 mg/ (Dextrose) 250 mls @ 150 mls/hr IVPB DAILY@1530 [facility]; Protocol Last Admin: 11/05/18 15:38 Dose: 150 mls/hr Insulin Aspart (Novolog Vial Sliding Scale -) 1 vial SQ ACHS [facility]; Protocol Last Admin: 11/06/18 10:55 Dose: Not Given Insulin Detemir (Levemir Vial) 20 units SQ HS [facility] Last Admin: 11/05/18 22:17 Dose: 20 units Metformin HCl (Glucophage -) 500 mg PO BIDAC [facility] Last Admin: 11/06/18 06:04 Dose: 500 mg Multivitamins/Minerals/Vitamin C (Tab-A-Vit -) 1 tab PO DAILY [facility] Last Admin: 11/06/18 10:50 Dose: 1 tab Ngqks-5-Xclr Ethyl Esters (Lovaza -) 2 gm PO BID [facility] Last Admin: 11/06/18 10:49 Dose: 2 gm Ondansetron HCl (Zofran Injection) 4 mg IVPUSH Q6H PRN PRN Reason: NAUSEA AND/OR VOMITING Pantoprazole Sodium (Protonix -) 40 mg PO DAILY [facility] Last Admin: 11/06/18 10:50 Dose: 40 mg Ramipril (Altace -) 2.5 mg PO DAILY [facility] Last Admin: 11/06/18 10:50 Dose: 2.5 mg - Objective Vital Signs: Vital Signs Temperature 98.4 F 11/06/18 15:22 Pulse Rate 77 11/06/18 15:22 Respiratory Rate 18 11/06/18 15:22 Blood Pressure 112/62 11/06/18 15:22 O2 Sat by Pulse Oximetry (%) 98 11/05/18 21:00 Constitutional: Yes: No Distress, Calm Cardiovascular: Yes: Regular Rate and Rhythm Respiratory: Yes: Regular Gastrointestinal: Yes: Normal Bowel Sounds, Soft, Abdomen, Obese Genitourinary: Yes: WNL Extremities: Yes: Amputation (3rd toe) Integumentary: Yes: WNL Wound/Incision: Yes: Dressing Dry and Intact Neurological: Yes: Alert Labs: CBC, BMP 11/06/18 08:55 11/06/18 08:55 INR, PTT INR 1.11 (0.83-1.09) H 11/01/18 16:30 Microbiology 11/01/18 12:23 Toe - Left Third Gram Stain - Final 11/01/18 12:23 Toe - Left Third Wound Culture - Final Mr S Aureus Enterococcus Faecalis 10/25/18 19:30 Blood - Peripheral Venous Blood Culture - Final NO GROWTH AFTER 5 DAYS INCUBATION 10/25/18 19:11 Blood - Peripheral Venous Blood Culture - Final Staph Capitis Subsp Ureolyticu 10/25/18 20:01 Toe - Left Third Gram Stain - Final 10/25/18 20:01 Toe - Left Third Wound Culture - Final Proteus Mirabilis Mr S Aureus Enterococcus Faecalis Problem List - Problems (1) Diabetes Code(s): E11.9 - TYPE 2 DIABETES MELLITUS WITHOUT COMPLICATIONS (2) HLD (hyperlipidemia) Code(s): E78.5 - HYPERLIPIDEMIA, UNSPECIFIED (3) HTN (hypertension) Code(s): I10 - ESSENTIAL (PRIMARY) HYPERTENSION (4) PVD (peripheral vascular disease) Code(s): I73.9 - PERIPHERAL VASCULAR DISEASE, UNSPECIFIED (5) Status post amputation Code(s): Z89.9 - ACQUIRED ABSENCE OF LIMB, UNSPECIFIED (6) Diabetic foot ulcer Code(s): E11.621 - TYPE 2 DIABETES MELLITUS WITH FOOT ULCER; L97.509 - NON- PRESSURE CHRONIC ULCER OTH PRT UNSP FOOT W UNSP SEVERITY Qualifiers: (7) Osteomyelitis of foot, left, acute Code(s): M86.172 - OTHER ACUTE OSTEOMYELITIS, LEFT ANKLE AND FOOT Assessment/Plan Lt toe gangrene s/p amputation Diabetic foot ulcer DM with neuropathy Cultures and Vancomycin level results noted continue Vancomycin, will adjust dose, and monitor renal function continue wound care Podiatry following
[2018-11-06] MEDS: VANCOMYCIN 1,250 MG in DEXTROSE 5%-WATER - 250 ML IVPB SCH (17:08)
[2018-11-06] MEDS: VANCOMYCIN HCL 1,500 MG in DEXTROSE 5%-WATER - 500 ML IVPB SCH (18:24)
[2018-11-06] MEDS: INSULIN (LEVEMIR) 100 UNITS/ML UNITS SQ SCH (21:36)
--- NOTE | 2018-11-06 22:59 | PN ---
Progress Note, Physician History of Present Illness: No new complaints - Current Medication List Current Medications: Active Medications Vancomycin HCl 1,500 mg/ (Dextrose) 500 mls @ 250 mls/hr IVPB Q24H [facility]; Protocol Last Admin: 11/06/18 18:24 Dose: 250 mls/hr Insulin Aspart (Novolog Vial Sliding Scale -) 1 vial SQ ACHS [facility]; Protocol Last Admin: 11/06/18 21:35 Dose: Not Given Insulin Detemir (Levemir Vial) 20 units SQ HS [facility] Last Admin: 11/06/18 21:36 Dose: 20 units Metformin HCl (Glucophage -) 500 mg PO BIDAC [facility] Last Admin: 11/06/18 17:04 Dose: 500 mg Multivitamins/Minerals/Vitamin C (Tab-A-Vit -) 1 tab PO DAILY [facility] Last Admin: 11/06/18 10:50 Dose: 1 tab Swksh-5-Ibiv Ethyl Esters (Lovaza -) 2 gm PO BID [facility] Last Admin: 11/06/18 21:36 Dose: 2 gm Ondansetron HCl (Zofran Injection) 4 mg IVPUSH Q6H PRN PRN Reason: NAUSEA AND/OR VOMITING Pantoprazole Sodium (Protonix -) 40 mg PO DAILY [facility] Last Admin: 11/06/18 10:50 Dose: 40 mg Ramipril (Altace -) 2.5 mg PO DAILY [facility] Last Admin: 11/06/18 10:50 Dose: 2.5 mg - Objective Vital Signs: Vital Signs Temperature -98.4 F L 11/06/18 18:00 Pulse Rate 71 11/06/18 18:00 Respiratory Rate 20 11/06/18 18:00 Blood Pressure 119/65 11/06/18 18:00 O2 Sat by Pulse Oximetry (%) 98 11/05/18 21:00 Neck: Yes: WNL, Supple Cardiovascular: Yes: WNL, Regular Rate and Rhythm Respiratory: Yes: WNL, Regular, CTA Bilaterally Gastrointestinal: Yes: WNL, Normal Bowel Sounds, Soft Extremities: Yes: Other (Lt foot in dressing) Labs: CBC, BMP 11/06/18 08:55 11/06/18 08:55 INR, PTT INR 1.11 (0.83-1.09) H 11/01/18 16:30 Problem List - Problems (1) Diabetic foot ulcer Code(s): E11.621 - TYPE 2 DIABETES MELLITUS WITH FOOT ULCER; L97.509 - NON- PRESSURE CHRONIC ULCER OTH PRT UNSP FOOT W UNSP SEVERITY Qualifiers: (2) Diabetes Code(s): E11.9 - TYPE 2 DIABETES MELLITUS WITHOUT COMPLICATIONS (3) PVD (peripheral vascular disease) Code(s): I73.9 - PERIPHERAL VASCULAR DISEASE, UNSPECIFIED (4) HLD (hyperlipidemia) Code(s): E78.5 - HYPERLIPIDEMIA, UNSPECIFIED (5) HTN (hypertension) Code(s): I10 - ESSENTIAL (PRIMARY) HYPERTENSION
[2018-11-07] MEDS: INSULIN SLIDING SCALE (NOVOLOG) 1 VIAL SQ SCH ×4 (06:15→22:31)
[2018-11-07] MEDS: metFORMIN HCL 500 MG TABLET (FP) PO SCH ×2 (06:23→17:22)
[2018-11-07] MEDS: OMEGA-3 ACID ETHYL ESTERS (FATTY-ACIDS) 1 GM CAPSULE (FP) PO SCH ×2 (10:27→22:31)
[2018-11-07] MEDS: RAMIPRIL 2.5 MG CAPSULE (FP) PO SCH (10:28)
[2018-11-07] MEDS: PANTOPRAZOLE 40 MG TABLET (FP) PO SCH (10:28)
[2018-11-07] MEDS: MULTIVITAMINS (DAILY MVI) TABLET (FP) PO SCH (10:28)
--- NOTE | 2018-11-07 14:21 | PN ---
Progress Note, Physician History of Present Illness: Pt doing well. No new complaints. - Current Medication List Current Medications: Active Medications Vancomycin HCl 1,500 mg/ (Dextrose) 500 mls @ 250 mls/hr IVPB Q24H [facility]; Protocol Last Admin: 11/06/18 18:24 Dose: 250 mls/hr Insulin Aspart (Novolog Vial Sliding Scale -) 1 vial SQ ACHS [facility]; Protocol Last Admin: 11/07/18 12:00 Dose: Not Given Insulin Detemir (Levemir Vial) 20 units SQ HS [facility] Last Admin: 11/06/18 21:36 Dose: 20 units Metformin HCl (Glucophage -) 500 mg PO BIDAC [facility] Last Admin: 11/07/18 06:23 Dose: 500 mg Multivitamins/Minerals/Vitamin C (Tab-A-Vit -) 1 tab PO DAILY [facility] Last Admin: 11/07/18 10:28 Dose: 1 tab Ukfwi-9-Oyee Ethyl Esters (Lovaza -) 2 gm PO BID [facility] Last Admin: 11/07/18 10:27 Dose: 2 gm Ondansetron HCl (Zofran Injection) 4 mg IVPUSH Q6H PRN PRN Reason: NAUSEA AND/OR VOMITING Pantoprazole Sodium (Protonix -) 40 mg PO DAILY [facility] Last Admin: 11/07/18 10:28 Dose: 40 mg Ramipril (Altace -) 2.5 mg PO DAILY [facility] Last Admin: 11/07/18 10:28 Dose: 2.5 mg - Objective Vital Signs: Vital Signs Temperature 98.4 F 11/07/18 14:08 Pulse Rate 72 11/07/18 14:08 Respiratory Rate 18 11/07/18 14:08 Blood Pressure 118/64 11/07/18 14:08 O2 Sat by Pulse Oximetry (%) 98 11/05/18 21:00 Constitutional: Yes: No Distress, Calm Cardiovascular: Yes: Regular Rate and Rhythm Respiratory: Yes: Regular Gastrointestinal: Yes: Normal Bowel Sounds, Soft, Abdomen, Obese Wound/Incision: Yes: Other (foot edema/no erythema, dressing intact) Neurological: Yes: Alert Labs: CBC, BMP 11/06/18 08:55 11/06/18 08:55 INR, PTT INR 1.11 (0.83-1.09) H 11/01/18 16:30 Problem List - Problems (1) Diabetes Code(s): E11.9 - TYPE 2 DIABETES MELLITUS WITHOUT COMPLICATIONS (2) HLD (hyperlipidemia) Code(s): E78.5 - HYPERLIPIDEMIA, UNSPECIFIED (3) HTN (hypertension) Code(s): I10 - ESSENTIAL (PRIMARY) HYPERTENSION (4) PVD (peripheral vascular disease) Code(s): I73.9 - PERIPHERAL VASCULAR DISEASE, UNSPECIFIED (5) Status post amputation Code(s): Z89.9 - ACQUIRED ABSENCE OF LIMB, UNSPECIFIED (6) Diabetic foot ulcer Code(s): E11.621 - TYPE 2 DIABETES MELLITUS WITH FOOT ULCER; L97.509 - NON- PRESSURE CHRONIC ULCER OTH PRT UNSP FOOT W UNSP SEVERITY Qualifiers: (7) Osteomyelitis of foot, left, acute Code(s): M86.172 - OTHER ACUTE OSTEOMYELITIS, LEFT ANKLE AND FOOT Assessment/Plan Lt toe gangrene s/p amputation Diabetic foot ulcer DM with neuropathy continue Vancomycin, check trough prior to 4th dose continue wound care Podiatry following
[2018-11-07] MEDS: VANCOMYCIN HCL 1,500 MG in DEXTROSE 5%-WATER - 500 ML IVPB SCH (17:22)
--- NOTE | 2018-11-07 22:31 | PN ---
Progress Note, Physician History of Present Illness: No new complaints - Current Medication List Current Medications: Active Medications Vancomycin HCl 1,500 mg/ (Dextrose) 500 mls @ 250 mls/hr IVPB Q24H [facility]; Protocol Last Admin: 11/07/18 17:22 Dose: 250 mls/hr Insulin Aspart (Novolog Vial Sliding Scale -) 1 vial SQ ACHS [facility]; Protocol Last Admin: 11/07/18 17:22 Dose: Not Given Insulin Detemir (Levemir Vial) 20 units SQ HS [facility] Last Admin: 11/06/18 21:36 Dose: 20 units Metformin HCl (Glucophage -) 500 mg PO BIDAC [facility] Last Admin: 11/07/18 17:22 Dose: 500 mg Multivitamins/Minerals/Vitamin C (Tab-A-Vit -) 1 tab PO DAILY [facility] Last Admin: 11/07/18 10:28 Dose: 1 tab Eufwt-2-Ckup Ethyl Esters (Lovaza -) 2 gm PO BID [facility] Last Admin: 11/07/18 10:27 Dose: 2 gm Ondansetron HCl (Zofran Injection) 4 mg IVPUSH Q6H PRN PRN Reason: NAUSEA AND/OR VOMITING Pantoprazole Sodium (Protonix -) 40 mg PO DAILY [facility] Last Admin: 11/07/18 10:28 Dose: 40 mg Ramipril (Altace -) 2.5 mg PO DAILY [facility] Last Admin: 11/07/18 10:28 Dose: 2.5 mg - Objective Vital Signs: Vital Signs Temperature 98.2 F 11/07/18 18:00 Pulse Rate 69 11/07/18 18:00 Respiratory Rate 18 11/07/18 18:00 Blood Pressure 130/73 11/07/18 18:00 O2 Sat by Pulse Oximetry (%) 98 11/05/18 21:00 Neck: Yes: WNL, Supple Cardiovascular: Yes: WNL, Regular Rate and Rhythm Respiratory: Yes: WNL, Regular, CTA Bilaterally Gastrointestinal: Yes: WNL, Normal Bowel Sounds, Soft Extremities: Yes: Other (Lt foot in dressing) Labs: CBC, BMP 11/06/18 08:55 11/06/18 08:55 INR, PTT INR 1.11 (0.83-1.09) H 11/01/18 16:30 Problem List - Problems (1) Diabetic foot ulcer Assessment/Plan: S/P amputation Lt 3rd toe Cont IV vanco and dose is being adjusted Wound culture (+) MRSA/Proteus?enterococcus Awaiting final sensitivites Probable dc planning for am w/ PIC line placement Code(s): E11.621 - TYPE 2 DIABETES MELLITUS WITH FOOT ULCER; L97.509 - NON- PRESSURE CHRONIC ULCER OTH PRT UNSP FOOT W UNSP SEVERITY Qualifiers: (2) Diabetes Assessment/Plan: Cont sliding scale w/ coverage Cont levemir/metformin Code(s): E11.9 - TYPE 2 DIABETES MELLITUS WITHOUT COMPLICATIONS (3) PVD (peripheral vascular disease) Assessment/Plan: No intervention needed Code(s): I73.9 - PERIPHERAL VASCULAR DISEASE, UNSPECIFIED (4) HLD (hyperlipidemia) Assessment/Plan: Cont lovaza Code(s): E78.5 - HYPERLIPIDEMIA, UNSPECIFIED (5) HTN (hypertension) Assessment/Plan: Cont ramipril Code(s): I10 - ESSENTIAL (PRIMARY) HYPERTENSION
[2018-11-07] MEDS: INSULIN (LEVEMIR) 100 UNITS/ML UNITS SQ SCH (22:32)
[2018-11-08] MEDS: INSULIN SLIDING SCALE (NOVOLOG) 1 VIAL SQ SCH ×3 (06:28→16:17)
[2018-11-08] MEDS: metFORMIN HCL 500 MG TABLET (FP) PO SCH ×2 (06:29→16:53)
[2018-11-08 08:57] LABS: ANION GAP 8 MMOL/L (8-16); BLOOD UREA NITROGEN 24 mg/dL (7-18); CALCIUM 9.1 mg/dL (8.5-10.1); CHLORIDE 104 mmol/L (98-107); CO2 28 mmol/L (21-32); GLUCOSE,RANDOM 112 mg/dL (74-106); SODIUM 140 mmol/L (136-145)
[2018-11-08] MEDS: OMEGA-3 ACID ETHYL ESTERS (FATTY-ACIDS) 1 GM CAPSULE (FP) PO SCH (09:35)
[2018-11-08] MEDS: MULTIVITAMINS (DAILY MVI) TABLET (FP) PO SCH (09:35)
[2018-11-08] MEDS: PANTOPRAZOLE 40 MG TABLET (FP) PO SCH (09:35)
[2018-11-08] MEDS: RAMIPRIL 2.5 MG CAPSULE (FP) PO SCH (09:35)
--- NOTE | 2018-11-08 09:49 | PN ---
Progress Note, Physician History of Present Illness: patient doing well no new issues all cx reports noted - Current Medication List Current Medications: Active Medications Vancomycin HCl 1,500 mg/ (Dextrose) 500 mls @ 250 mls/hr IVPB Q24H [facility]; Protocol Last Admin: 11/07/18 17:22 Dose: 250 mls/hr Insulin Aspart (Novolog Vial Sliding Scale -) 1 vial SQ ACHS [facility]; Protocol Last Admin: 11/08/18 06:28 Dose: Not Given Insulin Detemir (Levemir Vial) 20 units SQ HS [facility] Last Admin: 11/07/18 22:32 Dose: 20 units Metformin HCl (Glucophage -) 500 mg PO BIDAC [facility] Last Admin: 11/08/18 06:29 Dose: 500 mg Multivitamins/Minerals/Vitamin C (Tab-A-Vit -) 1 tab PO DAILY [facility] Last Admin: 11/08/18 09:35 Dose: 1 tab Srrzb-9-Yioy Ethyl Esters (Lovaza -) 2 gm PO BID [facility] Last Admin: 11/08/18 09:35 Dose: 2 gm Ondansetron HCl (Zofran Injection) 4 mg IVPUSH Q6H PRN PRN Reason: NAUSEA AND/OR VOMITING Pantoprazole Sodium (Protonix -) 40 mg PO DAILY [facility] Last Admin: 11/08/18 09:35 Dose: 40 mg Ramipril (Altace -) 2.5 mg PO DAILY [facility] Last Admin: 11/08/18 09:35 Dose: 2.5 mg - Objective Vital Signs: Vital Signs Temperature 97.7 F 11/08/18 06:10 Pulse Rate 66 11/08/18 06:10 Respiratory Rate 18 11/08/18 06:10 Blood Pressure 130/66 11/08/18 06:10 O2 Sat by Pulse Oximetry (%) 100 11/07/18 21:00 Constitutional: Yes: No Distress, Calm Cardiovascular: Yes: Regular Rate and Rhythm Respiratory: Yes: Regular, CTA Bilaterally Gastrointestinal: Yes: Normal Bowel Sounds, Soft Musculoskeletal: Yes: WNL Extremities: Yes: Other Wound/Incision: Yes: Dressing Dry and Intact Neurological: Yes: Alert, Oriented Psychiatric: Yes: Alert, Oriented Labs: CBC, BMP 11/06/18 08:55 11/08/18 06:15 INR, PTT INR 1.11 (0.83-1.09) H 11/01/18 16:30 Assessment/Plan Problem List - Problems (1) Diabetes Code(s): E11.9 - TYPE 2 DIABETES MELLITUS WITHOUT COMPLICATIONS (2) HLD (hyperlipidemia) Code(s): E78.5 - HYPERLIPIDEMIA, UNSPECIFIED (3) HTN (hypertension) Code(s): I10 - ESSENTIAL (PRIMARY) HYPERTENSION (4) PVD (peripheral vascular disease) Code(s): I73.9 - PERIPHERAL VASCULAR DISEASE, UNSPECIFIED (5) Status post amputation Code(s): Z89.9 - ACQUIRED ABSENCE OF LIMB, UNSPECIFIED (6) Diabetic foot ulcer Code(s): E11.621 - TYPE 2 DIABETES MELLITUS WITH FOOT ULCER; L97.509 - NON- PRESSURE CHRONIC ULCER OTH PRT UNSP FOOT W UNSP SEVERITY Qualifiers: (7) Osteomyelitis of foot, left, acute Code(s): M86.172 - OTHER ACUTE OSTEOMYELITIS, LEFT ANKLE AND FOOT cx reports and sensitivities noted plan patient needs vanco for another 4 weeks will check crp esr follow vanco trough follow cbc bmp weekly rest as per the team
[2018-11-08 15:06] VITALS: TEMP 98
[2018-11-08] MEDS ORDERED: PT OWN MED DRAWER 7, Y5N ONE (15:19)
[2018-11-08] MEDS: VANCOMYCIN HCL 1,500 MG in DEXTROSE 5%-WATER - 500 ML IVPB SCH (16:53)
[2018-11-08 17:42] VITALS: BP 108/61; PULSE 80
--- NOTE | 2018-11-22 00:17 | OP ---
DATE OF OPERATION: 11/01/2018 SURGEON: Ellis Marti DPM PREOPERATIVE DIAGNOSIS: Gangrene 3rd toe left foot with osteomyelitis. POSTOPERATIVE DIAGNOSIS: Gangrene 3rd toe left foot with osteomyelitis. PROCEDURE: Amputation of 3rd toe left foot. ANESTHESIA: Local with IV sedation. DESCRIPTION OF PROCEDURE: After noting all preoperative vital signs were within normal limits, and after the surgical consent was signed and witnessed, the patient was brought to the OR and placed on the table in the supine position. Once the patient was on the table, a local infiltrate was given in the Cunningham block fashion around the 3rd metatarsophalangeal joint while the patient was sedated. The foot was then prepped and draped in the usual sterile fashion. Once the foot was prepped and draped in the usual sterile fashion, attention was directed to the 3rd toe of the left foot where utilizing a 15-blade, a ousmane-shaped incision was created around the 3rd metatarsophalangeal joint. Using sharp and blunt dissection the 3rd toe joint was located, identified and transected thus dis-articulating the 3rd metatarsophalangeal joint. Once the 3rd metatarsophalangeal joint was disarticulated, the toe was removed. A culture was done. A bone culture was done of the proximal portion of the phalanx. Once this was done, the area was irrigated with copious amounts of sterile saline that had bacitracin antibiotic added to it. The wound was explored for any changes on the 3rd metatarsal head. There was none noted. All exposed tendon that was resected. All unavoidable vessels were ligated in the usual fashion. Utilizing 3-0 nylon in a simple interrupted suture retention sutures were put into place. 0.25-inch Iodoform packing put into place around the 3rd metatarsophalangeal joint, allowing for any drainage post operatively. Once this was done a dressing was done with Xeroform, Fluff dressing, a combine dressing, and a Kerlix were then applied with an overlying Tommie bandage. Patient tolerated the anesthesia and the procedure well. Patient returned to recovery room with vital signs stable and vascular status intact. YAS Dubose/[id number] MTDD
== END 2018-11-08 09:00 | disposition home or self-care (01) | DRG 617 ==
LOC: JER 17:31 → JERBED 20:29 → J7W 10-26 01:24
PROVIDERS: ADMIT Internal Medicine; ATTEND Internal Medicine
PROC: 0QBR0ZX Excision of Left Toe Phalanx, Open Approach, Diagnostic (ICD-10-PCS; 2018-11-01)
PROC: 0Y6U0Z0 Detachment at Left 3rd Toe, Complete, Open Approach (ICD-10-PCS; principal; 2018-11-01 11:30)
PROC: 02HV33Z Insertion of Infusion Device into Superior Vena Cava, Percutaneous Approach (ICD-10-PCS; 2018-11-08)
PROC: B518ZZA Fluoroscopy of Superior Vena Cava, Guidance (ICD-10-PCS; 2018-11-08)
DX: E11.621 Type 2 diabetes mellitus with foot ulcer (principal); E11.52 Type 2 diabetes mellitus with diabetic peripheral angiopathy with gangrene; L97.528 Non-pressure chronic ulcer of other part of left foot with other specified severity; M86.172 Other acute osteomyelitis, left ankle and foot; E66.9 Obesity, unspecified; Z68.38 Body mass index [BMI] 38.0-38.9, adult; E78.5 Hyperlipidemia, unspecified; I10 Essential (primary) hypertension; L03.032 Cellulitis of left toe; Q65.89 Other specified congenital deformities of hip; R05 Cough; E11.40 Type 2 diabetes mellitus with diabetic neuropathy, unspecified; B95.62 Methicillin resistant Staphylococcus aureus infection as the cause of diseases classified elsewhere
CPT/HCPCS: 36415; 36569; 71046-TC-FY; 73630-TC-LT; 73660-TC-LT-FY; 77001-TC-FY; 80048; 80053; 82962; 83735; 84100; 85025; 85027; 85610; 86140; 86850; 86900; 86901; 87040; 87070; 87186; 87205; 88305-TC; 88311-TC; 93005; 93010; 93306-TC; 94760; 99283-25; C1751; G0480; J1644